=== PATIENT | female | born 1950 | race Two or more races ===

== ENCOUNTER 2018-02-26 09:40 | Emergency (ER) | payer MEDICARE ==
[2018-02-26 09:57] VITALS: RESP 18
[2018-02-26] MEDS ORDERED: SODIUM CHLORIDE 0.9% 1,000 ML IV STA (10:50)
[2018-02-26] MEDS ORDERED: ONDANSETRON 4 MG/2 ML VIAL IVP STA (10:50)
[2018-02-26] MEDS ORDERED: MORPHINE SULFATE 4 MG/ML SYRINGE IV STA (10:50)
--- NOTE | 2018-02-26 11:19 | ED ---
General Adult HPI - General Chief complaint: Back Pain/Injury Stated complaint: POSS KIDNEY PROBLEM Time Seen by Provider: 02/26/18 10:24 Source: patient, RN notes reviewed Mode of arrival: ambulatory Limitations: no limitations - History of Present Illness Initial comments: Patient 67-year-old female presenting to the emergency room today with a chief complaint of right-sided back pain. Patient states that she's had pain similar to this in the past over the last several months. States was coming and going. States it got worse over the last 5 days and last night has now become a constant pain on the right mid back. Patient states the location and pain is similar but it is no longer coming going. Patient does admit that she had a recent x-ray obtained through the family physician outpatient basis which shows some degenerative changes in the lower spine. Patient also admits that beginning the middle night she had a few episodes of nausea, vomiting, diarrhea. Denies any signs of blood. Patient states that she cannot seem to find a comfortable position. Patient states that she's had muscle relaxer at home with no relief. Patient states she was unable to take her morning medications because of nausea. She denies any other complaints. Patient denies any recent fever, chills, shortness of breath, chest pain, abdominal pain, dysuria or hematuria, constipation, headaches or visual changes, or any other complaints. - Related Data Home Medications Medication Instructions Recorded Confirmed Allopurinol [Zyloprim] 100 mg PO DAILY 02/26/18 02/26/18 Atenolol [Tenormin] 50 mg PO DAILY 02/26/18 02/26/18 Atorvastatin [Lipitor] 80 mg PO DAILY 02/26/18 02/26/18 Cholecalciferol [Vitamin D3] 5,000 unit PO DAILY 02/26/18 02/26/18 Folic Acid 1 mg PO DAILY 02/26/18 02/26/18 Losartan/Hydrochlorothiazide 1 tab PO DAILY 02/26/18 02/26/18 [Losartan-Hctz 100-12.5 mg Tab] [place]-3 Fatty Acids/Fish Oil [Fish 1 cap PO DAILY 02/26/18 02/26/18 Oil 1,000 mg Softgel] Omeprazole 40 mg PO DAILY 02/26/18 02/26/18 cloNIDine HCL [Catapres] 0.1 mg PO TID 02/26/18 02/26/18 metFORMIN HCL 500 mg PO BID 02/26/18 02/26/18 Previous Rx's Medication Instructions Recorded Cyclobenzaprine [Flexeril] 10 mg PO TID #20 tab 02/26/18 Ondansetron Odt [Zofran ODT] 4 mg PO Q8HR PRN #20 tab 02/26/18 Allergies Allergy/AdvReac Type Severity Reaction Status Date / Time clindamycin [From Cleocin] Allergy Rash/Hives Verified 02/26/18 10:58 Penicillins Allergy Rash/Hives Verified 02/26/18 10:58 Review of Systems ROS Statement: Those systems with pertinent positive or pertinent negative responses have been documented in the HPI. ROS Other: All systems not noted in ROS Statement are negative. Past Medical History Past Medical History: Diabetes Mellitus, Hyperlipidemia, Hypertension History of Any Multi-Drug Resistant Organisms: None Reported Past Surgical History: Appendectomy, Orthopedic Surgery, Tonsillectomy Additional Past Surgical History / Comment(s): right pointer finger surgery Past Psychological History: Anxiety Smoking Status: Never smoker Past Alcohol Use History: None Reported Past Drug Use History: None Reported General Exam - General Exam Comments Initial Comments: General: The patient is awake and alert, in no distress, and does not appear acutely ill. Eye: There is normal conjunctiva bilaterally. No signs of icterus. Ears, nose, mouth and throat: There are moist mucous membranes and no oral lesions. Neck: The neck is supple, there is no tenderness or JVD. Cardiovascular: There is a regular rate and rhythm. No murmur, rub or gallop is appreciated. Respiratory: Lungs are clear to auscultation, respirations are non-labored, breath sounds are equal. No wheezes, stridor, rales, or rhonchi. Gastrointestinal: Abdominal soft on palpation. Nontender. No pulsatile mass. No rebound, guarding Musculoskeletal: Normal ROM. Tender to palpation. Acutely on the right side midthoracic back. Strength 5/5. Sensation intact. Pulses equal bilaterally 2+. Neurological: A&O x 3. CN II-XII intact, There are no obvious motor or sensory deficits. Coordination appears grossly intact. Speech is normal. Skin: Skin is warm and dry and no rashes or lesions are noted. Psychiatric: Cooperative, appropriate mood & affect, normal judgment. Limitations: no limitations Course Vital Signs 02/26/18 02/26/18 09:52 12:38 Temperature 97.7 F Pulse Rate 80 Respiratory 18 Rate Blood Pressure 210/88 185/90 O2 Sat by Pulse 95 Oximetry EKG Findings - EKG Comments: EKG Findings:: EKG performed at 1317: A 12-lead EKG was performed and interpreted by me as showing the following: Rate is 76, and rhythm is normal sinus. There are normal QRS complexes and normal R-wave progression. ST segments have no elevation or depression, and MI segments appear normal. Medical Decision Making - Medical Decision Making Patient's labs been reviewed does show 15,000 white count. Patient did have episodes of nausea vomiting diarrhea this morning. This felt to be reactive. Patient's CT of the chest negative. CT the abdomen and pelvis does show evidence for a gastroenteritis versus colitis. Patient's urinalysis shows no sign of infection. Patient denies any symptoms of UTI. Patient's pain improved here in the emergency room after pain medication. Patient's has been seen the family doctor for the same type pain but it was worse last few days. Patient will be treated with muscle relaxer continue on anti-inflammatories for the back pain will also be given nausea medicine for her symptoms of nausea vomiting. She is advised follow-up over the next 2 days returning if symptoms increase worsen. - Lab Data Result diagrams: 02/26/18 11:35 02/26/18 11:35 Lab Results 02/26/18 02/26/18 02/26/18 Range/Units 11:35 11:35 11:35 WBC 15.0 H (3.8-10.6) k/uL RBC 4.28 (3.80-5.40) m/uL Hgb 13.8 (11.4-16.0) gm/dL Hct 41.5 (34.0-46.0) % MCV 96.8 (80.0-100.0) fL MCH 32.3 (25.0-35.0) pg MCHC 33.4 (31.0-37.0) g/dL RDW 13.7 (11.5-15.5) % Plt Count 180 (150-450) k/uL Neutrophils % 79 % Lymphocytes % 13 % Monocytes % 5 % Eosinophils % 1 % Basophils % 0 % Neutrophils # 11.8 H (1.3-7.7) k/uL Lymphocytes # 2.0 (1.0-4.8) k/uL Monocytes # 0.8 (0-1.0) k/uL Eosinophils # 0.1 (0-0.7) k/uL Basophils # 0.1 (0-0.2) k/uL PT (9.0-12.0) sec INR (<1.2) APTT (22.0-30.0) sec Sodium 144 (137-145) mmol/L Potassium 3.2 L (3.5-5.1) mmol/L Chloride 103 (98-107) mmol/L Carbon Dioxide 28 (22-30) mmol/L Anion Gap 13 mmol/L BUN 16 (7-17) mg/dL Creatinine 0.72 (0.52-1.04) mg/dL Est GFR (CKD-EPI)AfAm >90 (>60 ml/min/1.73 sqM) Est GFR (CKD-EPI)NonAf 88 (>60 ml/min/1.73 sqM) Glucose 116 H (74-99) mg/dL Calcium 9.8 (8.4-10.2) mg/dL Total Bilirubin 1.0 (0.2-1.3) mg/dL AST 26 (14-36) U/L ALT 29 (9-52) U/L Alkaline Phosphatase 91 (38-126) U/L Total Creatine Kinase 80 (30-135) U/L CK-MB (CK-2) 1.4 (0.0-2.4) ng/mL CK-MB (CK-2) Rel Index 1.8 Troponin I <0.012 (0.000-0.034) ng/mL Total Protein 7.3 (6.3-8.2) g/dL Albumin 4.4 (3.5-5.0) g/dL Amylase 90 (30-110) U/L Lipase 92 (23-300) U/L Urine Color Urine Appearance (Clear) Urine pH (5.0-8.0) Ur Specific [place] (1.001-1.035) Urine Protein (Negative) Urine Glucose (UA) (Negative) Urine Ketones (Negative) Urine Blood (Negative) Urine Nitrite (Negative) Urine Bilirubin (Negative) Urine Urobilinogen (<2.0) mg/dL Ur Leukocyte Esterase (Negative) 02/26/18 02/26/18 Range/Units 11:35 11:35 WBC (3.8-10.6) k/uL RBC (3.80-5.40) m/uL Hgb (11.4-16.0) gm/dL Hct (34.0-46.0) % MCV (80.0-100.0) fL MCH (25.0-35.0) pg MCHC (31.0-37.0) g/dL RDW (11.5-15.5) % Plt Count (150-450) k/uL Neutrophils % % Lymphocytes % % Monocytes % % Eosinophils % % Basophils % % Neutrophils # (1.3-7.7) k/uL Lymphocytes # (1.0-4.8) k/uL Monocytes # (0-1.0) k/uL Eosinophils # (0-0.7) k/uL Basophils # (0-0.2) k/uL PT 10.4 (9.0-12.0) sec INR 1.0 (<1.2) APTT 23.4 (22.0-30.0) sec Sodium (137-145) mmol/L Potassium (3.5-5.1) mmol/L Chloride (98-107) mmol/L Carbon Dioxide (22-30) mmol/L Anion Gap mmol/L BUN (7-17) mg/dL Creatinine (0.52-1.04) mg/dL Est GFR (CKD-EPI)AfAm (>60 ml/min/1.73 sqM) Est GFR (CKD-EPI)NonAf (>60 ml/min/1.73 sqM) Glucose (74-99) mg/dL Calcium (8.4-10.2) mg/dL Total Bilirubin (0.2-1.3) mg/dL AST (14-36) U/L ALT (9-52) U/L Alkaline Phosphatase (38-126) U/L Total Creatine Kinase (30-135) U/L CK-MB (CK-2) (0.0-2.4) ng/mL CK-MB (CK-2) Rel Index Troponin I (0.000-0.034) ng/mL Total Protein (6.3-8.2) g/dL Albumin (3.5-5.0) g/dL Amylase (30-110) U/L Lipase (23-300) U/L Urine Color Yellow Urine Appearance Clear (Clear) Urine pH 8.5 H (5.0-8.0) Ur Specific [place] 1.017 (1.001-1.035) Urine Protein Trace H (Negative) Urine Glucose (UA) Negative (Negative) Urine Ketones Negative (Negative) Urine Blood Negative (Negative) Urine Nitrite Negative (Negative) Urine Bilirubin Negative (Negative) Urine Urobilinogen <2.0 (<2.0) mg/dL Ur Leukocyte Esterase Negative (Negative) Disposition Clinical Impression: Nausea vomiting and diarrhea, Back pain Disposition: HOME SELF-CARE Condition: Good Instructions: Acute Nausea and Vomiting (ED) Additional Instructions: Please use medication as discussed. Please follow-up with family doctor in the next 2 days of symptoms have not improved. Please return to emergency room if the symptoms increase or worsen or for any other concerns. Prescriptions: Cyclobenzaprine [Flexeril] 10 mg PO TID #20 tab Ondansetron Odt [Zofran ODT] 4 mg PO Q8HR PRN #20 tab PRN Reason: Nausea Is patient prescribed a controlled substance at d/c from ED?: No Referrals: Amador Real MD [Primary Care Provider] - 1-2 days Time of Disposition: 13:37
[2018-02-26 12:03] LABS: Appearance,Urine Clear (Clear); Basophils # (A) 0.1 k/uL (0-0.2); Basophils % (A) 0 %; Bilirubin,Urine Negative (Negative); Blood,Urine Negative (Negative); Color,Urine Yellow; Eosinophils # (A) 0.1 k/uL (0-0.7); Eosinophils % (A) 1 %; Glucose,Urine (UA) Negative (Negative); HCT 41.5 % (34.0-46.0); HGB 13.8 gm/dL (11.4-16.0); Ketones,Urine Negative (Negative); Leukocyte Esterase,Urine Negative (Negative); Lymphocytes % (A) 13 %; MCH 32.3 pg (25.0-35.0); MCHC 33.4 g/dL (31.0-37.0); MCV 96.8 fL (80.0-100.0); Mean Platelet Volume 8.6; Monocytes # (A) 0.8 k/uL (0-1.0); Monocytes % (A) 5 %; Neutrophils # (A) 11.8 k/uL (1.3-7.7); Neutrophils % (A) 79 %; Nitrite,Urine Negative (Negative); PH, Urine 8.5 (5.0-8.0); Platelet Count 180 k/uL (150-450); Protein,Urine Trace (Negative); RBC 4.28 m/uL (3.80-5.40); RDW 13.7 % (11.5-15.5); Specific Gravity,Urine 1.017 (1.001-1.035); Urobilinogen,Urine <2.0 mg/dL (<2.0)
[2018-02-26 12:12] LABS: Partial Thromboplastin Time 23.4 sec (22.0-30.0); Prothrombin Time 10.4 sec (9.0-12.0)
[2018-02-26 12:14] LABS: ALT 29 U/L (9-52); AST 26 U/L (14-36); Albumin 4.4 g/dL (3.5-5.0); Alkaline Phosphatase 91 U/L (38-126); Amylase 90 U/L (30-110); Anion Gap 13 mmol/L; Blood Urea Nitrogen 16 mg/dL (7-17); Calcium 9.8 mg/dL (8.4-10.2); Carbon Dioxide 28 mmol/L (22-30); Chloride 103 mmol/L (98-107); Glucose 116 mg/dL (74-99); Lipase 92 U/L (23-300); Potassium 3.2 mmol/L (3.5-5.1); Sodium 144 mmol/L (137-145); Total Protein 7.3 g/dL (6.3-8.2)
[2018-02-26 12:26] LABS: Creatine Kinase 80 U/L (30-135)
[2018-02-26 12:39] LABS: Creatine Kinase MB 1.4 ng/mL (0.0-2.4); Troponin I <0.012 ng/mL (0.000-0.034)
--- NOTE | 2018-02-26 12:55 | CT ---
EXAMINATION TYPE: CT angio chest DATE OF EXAM: 02/26/2018 COMPARISON: HISTORY: right sided back pain with nuasea and diarrhea CT DLP: 227.3 mGycm CONTRAST: CT chest with contrast and 3D reconstruction with MIP imaging is performed with IV Contrast, patient injected with 100 mL of Isovue 370. Contrast-enhanced CT of the chest was performed through the course of the pulmonary arteries with geovani g and mediastinal window settings submitted. 3D reconstruction with MIP imaging was also performed. PULMONARY ARTERIES: The pulmonary arteries and their major tributaries are patent. I do not see ki dence for sizable filling defect to suggest pulmonary embolic process. LUNGS: The lungs are clear and free of infiltrate. No evidence for atelectasis. No pulmonary nodule or mass is detected. No pleural effusion. MEDIASTINUM: Small moderate fixed hiatal hernia. Thoracic aorta is of normal caliber,however, evaluat ion is limited given timing of the contrast bolus. If there is concern for thoracic aortic pathology consider JAROCHO. Correlate clinically . The heart is not enlarged. No evidence for mediastinal mass. No mediastinal lymph nodes greater than 1cm. HILAR STRUCTURES: No evidence for mass. No hilar lymph nodes greater than 1 cm. UPPER ABDOMEN: No significant abnormality is seen. IMPRESSION: 1. No evidence for Pulmonary embolism at this time.
--- NOTE | 2018-02-26 13:06 | CT ---
EXAMINATION TYPE: CT abdomen pelvis w con DATE OF EXAM: 02/26/2018 COMPARISON: None HISTORY: right sided back pain with nausea and diarrhea CT DLP: 383.1 mGycm Automated exposure control for dose reduction was used. TECHNIQUE: Helical acquisition of images from the lung bases through the pelvis have been completed. CONTRAST: Performed without Oral Contrast and with IV Contrast, patient injected with 100 mL of Isovue 370. FINDINGS: There is an hiatal hernia with partial intrathoracic stomach. Gastric wall thickening is in determinate and may be due to lack of distention. Some nonspecific calcifications are present within the abdomen could represent calcified mesenteric nodes. Small umbilical hernia contains fat. LUNG BASES: No significant abnormality is appreciated. AORTA: No significant abnormality is appreciated. LIVER/GB: No significant abnormality is appreciated. Small focal hypodensity within the left lobe gilberto sures 7 to 8 mm and is indeterminate PANCREAS: No significant abnormality is seen. SPLEEN: Small calcification at the inferior margin of the spleen is of questionable significance ADRENALS: No significant abnormality is seen. KIDNEYS: Minute hypodensities scattered within the kidneys may represent cysts REPRODUCTIVE ORGANS: Bulky uterus with some hyperdensity suggests underlying fibroid change. BOWEL: There is some areas of colonic wall thickening, questionable small bowel wall thickening in t he left upper quadrant. No evident obstruction. FREE AIR: No Free Air visible. ASCITES: None visible. PELVIC ADENOPATHY: None visualized. RETROPERITONEAL ADENOPATHY: No Retroperitoneal Adenopathy visible. URINARY BLADDER: The urinary bladder wall is thickened, there may be a lack of distention, correlate to exclude cystitis. OSSEOUS STRUCTURES: No significant abnormality is seen. IMPRESSION: CORRELATE FOR GASTROENTERITIS, COLITIS, URINARY TRACT INFECTION. ADDITIONAL FINDINGS ABOVE, FOLLOW-UP INDICATED.
[2018-02-26 13:56] VITALS: BP 166/92; PULSE 77; TEMP 98.5
== END 2018-02-26 13:56 | disposition home or self-care (01) ==
LOC: EC 09:40
DX: M54.9 Dorsalgia, unspecified (principal); R11.2 Nausea with vomiting, unspecified; R19.7 Diarrhea, unspecified; E11.9 Type 2 diabetes mellitus without complications; E78.5 Hyperlipidemia, unspecified; I10 Essential (primary) hypertension; Z79.84 Long term (current) use of oral hypoglycemic drugs; Z79.899 Other long term (current) drug therapy; Z88.0 Allergy status to penicillin; Z88.1 Allergy status to other antibiotic agents
CPT/HCPCS: 36415; 93005; 80053; 82150; 82550; 82553; 83690; 84484; 85025; 85610; 85730; 81003; 71275; 74177; 99284; 96374; 96375; 96361; J2270; J2405; Q9967

== ENCOUNTER → 2020-08-09 | Outpatient (CLI) | payer MEDICARE ==
--- NOTE | 2020-08-09 12:04 | BD ---
EXAMINATION TYPE: Axial Bone Density DATE OF EXAM: 08/09/2020 COMPARISON: NONE CLINICAL HISTORY: Osteoporosis per order. Postmenopausal female. Height: 64.4 IN Weight: 141 LBS FRAX RISK QUESTIONS: Family History (Parent hip fracture): YES MOTHER Secondary Osteoporosis: 3. Menopause before 45: AGE 50 RISK FACTORS HISTORY OF: Active: YES Postmenopausal woman: AGE 50 Take estrogen and/or progesterone medications: NOT NOW How long: TOOK CONTROL FOR APPROX 6 YEARS MEDICATIONS: Additional Medications: FOLIC ACID, ATENOLOL, OMEPRAZOLE, ATORVASTATIN, LOW DOSE ASPIRIN,CLONIDINE, L OSARTAN, ALLOPURINOL, METFORMIN, NORVASC EXAM MEASUREMENTS: Bone mineral densitometry was performed using the [employer] System. Bone mineral density as measured about the Lumbar spine is: ----- L1-L4(G/cm2): 1.055 T Score Values are as follows: ----- L2: -1.6 ----- L3: 0.1 ----- L4: -1.3 ----- L1-L4: -1.0 Bone mineral density BASELINE Bone mineral density about the R hip (g/cm2): 0.813 Bone mineral density about the L hip (g/cm2): 0.822 T Score values are as follows: -----R Neck: -1.6 -----L Neck: -1.6 -----R Total: -0.5 -----L Total: -0.9 Bone mineral density BASELINE IMPRESSION: Osteopenia (T Score between -2.5 and -1). There is slightly increased risk of fracture and the patient may be considered for treatment. Re-Screen 2-5 years. NOTE: T-SCORE=SD OF THE YOUNG ADULT MEAN.
--- NOTE | 2020-08-09 15:06 | MM ---
Reason for exam: screening (asymptomatic). Last mammogram was performed 5 years and 1 month ago. History: Patient is postmenopausal. Physical Findings: A clinical breast exam by your physician is recommended on an annual basis and results should be correlated with mammographic findings. MG 3D Screening Mammo W/Cad Bilateral CC and MLO view(s) were taken. Prior study comparison: July 13, 2015, mammogram, performed at [facility]. May 04, 2014, mammogram, performed at [facility]. The breast tissue is heterogeneously dense. This may lower the sensitivity of mammography. There are benign appearing round calcifications bilaterally. There is no discrete abnormality. ASSESSMENT: Benign, BI-RAD 2 RECOMMENDATION: Routine screening mammogram of both breasts in 1 year.
--- NOTE | 2020-08-16 09:07 | P.ARTDOP ---
Arterial Doppler LOWER EXTREMITY ARTERIAL DOPPLER: DATE OF SERVICE: 08/09/2020 Reason for study: Paresthesias both feet. Doppler waveforms: Multiphasic bilaterally throughout. Pulse volume recording: []. Pressure gradients: None. Ankle-brachial indices: 0.96 on the right and 0.97 on the left. Toe brachial indices: 0.69 on the right, 0.81 on the left Impression: Normal study.
== END | disposition home or self-care (01) ==
LOC: RADUSWWP 09:42
PROVIDERS: ATTEND Internal Medicine
DX: Z12.31 Encounter for screening mammogram for malignant neoplasm of breast (principal); Z13.820 Encounter for screening for osteoporosis; I73.9 Peripheral vascular disease, unspecified; M85.89 Other specified disorders of bone density and structure, multiple sites; M81.0 Age-related osteoporosis without current pathological fracture; Z78.0 Asymptomatic menopausal state
CPT/HCPCS: 77063; 77067; 77080; 93922

== ENCOUNTER → 2021-10-02 | Outpatient (CLI) | payer MEDICARE ==
--- NOTE | 2021-10-02 12:21 | CA ---
Exercise Stress Test Report Name: Katherin Shahid Exam Date: 10/02/2021 10:33 Exam Location: [place] Ht (in): 65 Wt (lb): 136 BSA: 1.68 Ordering Phys: Amador Real MD Referring Phys: FATMATA, Technologist: Adelfo Grande Age: 71 Gender: F : 1950 Procedure CPT: Indications: I25.10 ICD-10 Codes: Patient History: ASCAD Medications: Folic acid, atenolol, omeperazole, atorvastatin, aspirin, colnidine, losartan, allopurinal, metformin, norvasc neurotin, setia. Meds past 24 hrs: Pretest Chest Pain: STRESS TEST Cong Protocol Exercise Duration (min:sec): 05:[address] Depressions (mm): Angina Score: Henry Score: Resting HR (bpm): 65 Peak HR (bpm): 138 Resting BP (mmHg): 151 / 92 Peak BP (mmHg): 190 / 141 MPHR: 149 Target HR: 127 % MPHR: 93 METS: 7.0 Total Dose: Peak Dose: Atropine: Double Product: 44837 BP Response: Stress Termination: Fitgue and heart rate acheived. Stress Symptoms: Patient became shacky and fitgued at peak exercise but recovered quickly. Stress Summary: ECG ANALYSIS Resting ECG: Stress ECG: CONCLUSIONS Exercise stress test Baseline heart rate 65 beats a minute, Baseline blood pressure 151/92 mmHg Patient exercised on a Cong protocol for 5 minutes only, low workload level achieved Peak heart rate 140 beats a minute The blood pressure 190/87 mmHg No ECG ms for ischemia No arrhythmias Dr. Osorio Linn MD (Electronically Signed) Final Date: 02 October 2021 12:20
--- NOTE | 2021-10-02 16:39 | NM ---
EXAMINATION TYPE: NM stress cardiolite complete DATE OF EXAM: 10/02/2021 COMPARISON: NONE HISTORY: Atherosclerotic heart disease TECHNIQUE: After the intravenous administration of 9.8 mCi Tc 99m Sestamibi - Cardiolite resting SPE CT images acquired 45 minutes post injection. At peak stress 26.1 mCi Tc 99m Sestamibi - Stress images obtained 30 minutes post injection The patient was stressed with 0.4mg Lexiscan. FINDINGS: No fixed or reversible perfusion defects are evident. Gated wall motion is normal. The ejection fract ion of 65% is normal. Polar maps are normal. IMPRESSION: 1. No stress-induced ischemic changes
== END | disposition home or self-care (01) ==
LOC: RADNMMAIN 10-01 08:25
PROVIDERS: ATTEND Internal Medicine
DX: I25.10 Atherosclerotic heart disease of native coronary artery without angina pectoris (principal)
CPT/HCPCS: 93017; 78452; A9500

== ENCOUNTER 2023-12-02 14:40 | Inpatient (IN) | payer MEDICARE ==
--- NOTE | 2023-12-02 15:09 | ED ---
General Adult HPI - General Source: patient, RN notes reviewed Mode of arrival: wheelchair Limitations: no limitations <Rhoda Combs - Last Filed: 12/02/23 15:07> <Pineda Banks - Last Filed: 12/03/23 00:03> - General Chief complaint: Fever Stated complaint: high fever,chills,chest tightness Time Seen by Provider: 12/02/23 14:58 - History of Present Illness Initial comments: Quick [id number] female presents emergency department for chief complaint of chills, fevers, weakness that started at 2 AM. She feels mildly short of breath as well and has been experiencing a dry cough. Denies history of COPD or asthma. Patient states that she tested positive for COVID approximately 2 weeks ago and took an at home test today that was negative. (Rhoda Combs) 73-year-old female presenting with chief complaint of weakness. Patient has had chills and fevers as well as is a cough and some mild shortness of breath for a day or 2. At around 2 AM symptoms significantly worsened and she felt generally weak. She could not walk to the mailbox by herself which she normally has no issue doing. She states that "my breathing does not feel ready". No chest pain. She did test positive for COVID about 2 weeks ago, she did take an at home test today that was negative. No nausea vomiting diarrhea or abdominal pain. No chest pain. No lower extremity swelling. (Pineda Banks) - Related Data Home Medications Medication Instructions Recorded Confirmed Atorvastatin [Lipitor] 80 mg PO DIRECTED 02/26/18 12/02/23 Folic Acid 1 mg PO DAILY 02/26/18 12/02/23 Losartan/Hydrochlorothiazide 1 tab PO DIRECTED 02/26/18 12/02/23 [Losartan-Hctz 100-12.5 mg Tab] Omeprazole 40 mg PO DIRECTED 02/26/18 12/02/23 allopurinoL [Zyloprim] 100 mg PO DIRECTED 02/26/18 12/02/23 atenoloL [Tenormin] 50 mg PO DIRECTED 02/26/18 12/02/23 cloNIDine HCL [Catapres] 0.1 mg PO DIRECTED 02/26/18 12/02/23 metFORMIN HCL 500 mg PO DIRECTED 02/26/18 12/02/23 ALPRAZolam [Xanax] 0.25 mg PO DAILY PRN 11/04/23 12/02/23 Aspirin 81 mg PO DAILY 11/04/23 12/02/23 Empagliflozin [Jardiance] 10 mg PO DAILY 11/04/23 12/02/23 Ezetimibe [Zetia] 10 mg PO DIRECTED 11/04/23 12/02/23 Gabapentin 600 mg PO DIRECTED 11/04/23 12/02/23 amLODIPine [Norvasc] 5 mg PO DIRECTED 11/04/23 12/02/23 Famotidine [Pepcid] 20 mg PO HS PRN 12/02/23 12/02/23 Allergies Allergy/AdvReac Type Severity Reaction Status Date / Time Penicillins Allergy Unknown Rash/Hives Verified 12/02/23 14:46 clindamycin [From Cleocin] Allergy Rash/Hives Verified 12/02/23 14:46 Review of Systems ROS Other: All systems not noted in ROS Statement are negative. <Rhoda Combs - Last Filed: 12/02/23 15:07> ROS Other: All systems not noted in ROS Statement are negative. <Pineda Banks - Last Filed: 12/03/23 00:03> ROS Statement: Those systems with pertinent positive or pertinent negative responses have been documented in the HPI. Past Medical History Past Medical History: Diabetes Mellitus, GERD/Reflux, Hyperlipidemia, Hypertensi on Additional Past Medical History / Comment(s): Gastritis History of Any Multi-Drug Resistant Organisms: None Reported Past Surgical History: Appendectomy, Orthopedic Surgery, Tonsillectomy Additional Past Surgical History / Comment(s): right pointer finger surgery, pilonidal cyst removed at 20yrs old; hernia repair R groin- Dr. Peres Past Anesthesia/Blood Transfusion Reactions: Postoperative Nausea & Vomiting (PONV) Past Psychological History: No Psychological Hx Reported Smoking Status: Former smoker Past Alcohol Use History: Rare <Rhoda Combs - Last Filed: 12/02/23 15:07> General Exam Limitations: no limitations <Rhoda Combs - Last Filed: 12/02/23 15:07> Limitations: no limitations General appearance: alert, in no apparent distress Head exam: Present: atraumatic, normocephalic, normal inspection Eye exam: Present: normal appearance, EOMI Neck exam: Present: normal inspection. Absent: meningismus Respiratory exam: Present: normal lung sounds bilaterally. Absent: respiratory distress, wheezes, rales, rhonchi, stridor Cardiovascular Exam: Present: regular rate, normal rhythm, normal heart sounds. Absent: systolic murmur, diastolic murmur, rubs, gallop, clicks Neurological exam: Present: alert, oriented X3 Psychiatric exam: Present: normal affect, normal mood Skin exam: Present: warm, dry <Pineda Banks - Last Filed: 12/03/23 00:03> - General Exam Comments Initial Comments: Visual Physical Exam Vital signs reviewed General: Well-appearing, nontoxic, no acute distress. Head: Normocephalic, atraumatic Eyes: PERRLA, EOMI ENT: Airway patent Chest: Nonlabored breathing Skin: No visual rash, normal skin tone Neuro: Alert and oriented 3 Musculoskeletal: No gross abnormalities (Rhoda Combs) Course Vital Signs 12/02/23 12/02/23 12/02/23 14:41 18:17 18:18 Temperature 99.4 F Pulse Rate 83 77 Respiratory 18 20 Rate Blood Pressure 135/74 123/92 123/92 O2 Sat by Pulse 95 88 L Oximetry 12/02/23 12/02/23 12/02/23 20:00 21:00 22:30 Temperature Pulse Rate 80 Respiratory 16 18 Rate Blood Pressure 97/63 110/68 112/94 O2 Sat by Pulse 93 L 95 96 Oximetry Medical Decision Making <Rhoda Combs - Last Filed: 12/02/23 15:07> - Lab Data Result diagrams: 12/02/23 15:08 12/02/23 15:08 <Pineda Banks - Last Filed: 12/03/23 00:03> - Medical Decision Making I completed the quick note portion of this chart signed Rhoda Combs PA-C (Rhoda Combs) Was pt. sent in by a medical professional or institution (YINKA Collins, MASTER CONTROL SUPERVISOR, urgent care, hospital, or halfway...) When possible be specific @ -No Did you speak to anyone other than the patient for history (EMS, parent, family, police, friend...)? What history was obtained from this source @ -No Did you review nursing and triage notes (agree or disagree)? Why? @ -I reviewed and agree with nursing and triage notes Were old charts reviewed (outside hosp., previous admission, EMS record, old EKG, old radiological studies, urgent care reports/EKG's, halfway records)? Report findings @ -No old charts were reviewed Differential Diagnosis (chest pain, altered mental status, abdominal pain women, abdominal pain men, vaginal bleeding, weakness, fever, dyspnea, syncope, headache, dizziness, GI bleed, back pain, seizure, CVA, palpatations, mental health, musculoskeletal)? @ -MDM Differential Weakness: Hypoglycemia, shock, sepsis, hyponatremia, anemia, infection, TX, ETOH, adverse medicine reaction, overdose, stroke. ... This is not meant to be an all- inclusive list EKG interpreted by me (3pts min.). @ -EKG shows sinus rhythm ventricular rate 74. HI interval 142. QRS 84. QT 395. QTc 423. X-rays interpreted by me (1pt min.). @ -X-ray shows right lower lobe infiltrate. Correlate for pneumonia. CT interpreted by me (1pt min.). @ -None done U/S interpreted by me (1pt. min.). @ -None done What testing was considered but not performed or refused? (CT, X-rays, U/S, labs)? Why? @ -None What meds were considered but not given or refused? Why? @ -None Did you discuss the management of the patient with other professionals (professionals i.e. , PA, MASTER CONTROL SUPERVISOR, lab, RT, psych nurse, manager social services, product marketing engineer, te acher, hydrological technical officer, medical case worker)? Give summary @ -I spoke with Dr. Real who accepts admission Was smoking cessation discussed for >3mins.? @ -No Was critical care preformed (if so, how long)? @ -No Were there social determinants of health that impacted care today? How? (Homelessness, low income, unemployed, alcoholism, drug addiction, transportation, low edu. Level, literacy, decrease access to med. care, group home, rehab)? @ -No Was there de-escalation of care discussed even if they declined (Discuss DNR or withdrawal of care, Hospice)? DNR status @ -No What co-morbidities impacted this encounter? (DM, HTN, Smoking, COPD, CAD, Cancer, CVA, ARF, Chemo, Hep., AIDS, mental health diagnosis, sleep apnea, morbid obesity)? @ -None Was patient admitted / discharged? Hospital course, mention meds given and route, prescriptions, significant lab abnormalities, going to OR and other pertinent info. @ -73-year-old female presenting with chief complaint of weakness, shortness of breath fevers and chills. Workup was initiated by triage. Patient is hypoxic on room air, 88%. She is placed on oxygen via nasal cannula and O2 returns to normal limits. Chest x-ray is positive for pneumonia. Patient is positive for COVID. White count 12.7. She is started on Rocephin and azithromycin after blood cultures are drawn. Given Decadron 10 mg. She will be admitted with pulmonary consult. Patient is agreeable with this plan. I discussed this case with my attending Dr. Torre Undiagnosed new problem with uncertain prognosis? @ -No Drug Therapy requiring intensive monitoring for toxicity (Heparin, Nitro, Insulin, Cardizem)? @ -No Were any procedures done? @ -No Diagnosis/symptom? @ -Pneumonia Acute, or Chronic, or Acute on Chronic? @ -Acute Uncomplicated (without systemic symptoms) or Complicated (systemic symptoms)? @ -Complicated Side effects of treatment? @ -No Exacerbation, Progression, or Severe Exacerbation? @ -No Poses a threat to life or bodily function? How? (Chest pain, [place], TX, pneumonia, PE, COPD, DKA, ARF, appy, cholecystitis, CVA, Diverticulitis, Homicidal, Suicidal, threat to staff... and all critical care pts) @ -Yes (Pineda Banks) - Lab Data Lab Results 12/02/23 12/02/23 12/02/23 Range/Units 15:08 15:08 15:08 WBC 12.7 H (3.8-10.6) k/uL RBC 3.87 (3.80-5.40) m/uL Hgb 12.5 (11.4-16.0) gm/dL Hct 38.2 (34.0-46.0) % MCV 98.8 (80.0-100.0) fL MCH 32.2 (25.0-35.0) pg MCHC 32.6 (31.0-37.0) g/dL RDW 14.1 (11.5-15.5) % Plt Count 195 (150-450) k/uL MPV 8.8 Neutrophils % 83 % Lymphocytes % 12 % Monocytes % 4 % Eosinophils % 1 % Basophils % 0 % Neutrophils # 10.5 H (1.3-7.7) k/uL Lymphocytes # 1.5 (1.0-4.8) k/uL Monocytes # 0.4 (0-1.0) k/uL Eosinophils # 0.1 (0-0.7) k/uL Basophils # 0.0 (0-0.2) k/uL PT (10.0-12.5) sec INR (<1.2) APTT (22.0-30.0) sec Sodium 139 (137-145) mmol/L Potassium 3.5 (3.5-5.1) mmol/L Chloride 96 L (98-107) mmol/L Carbon Dioxide 34 H (22-30) mmol/L Anion Gap 9 mmol/L BUN 21 H (7-17) mg/dL Creatinine 0.80 (0.52-1.04) mg/dL Est GFR (CKD-EPI)AfAm 85 (>60 ml/min/1.73 sqM) Est GFR (CKD-EPI)NonAf 74 (>60 ml/min/1.73 sqM) Glucose 107 H (74-99) mg/dL Plasma Lactic Acid Mynor 2.0 (0.7-2.0) mmol/L Calcium 9.0 (8.4-10.2) mg/dL Magnesium 1.6 (1.6-2.3) mg/dL Total Bilirubin 1.7 H (0.2-1.3) mg/dL AST 22 (14-36) U/L ALT 13 (4-34) U/L Alkaline Phosphatase 91 (38-126) U/L Troponin I (0.000-0.034) ng/mL Total Protein 6.8 (6.3-8.2) g/dL Albumin 3.9 (3.5-5.0) g/dL Urine Color Urine Appearance (Clear) Urine pH (5.0-8.0) Ur Specific Fluker (1.001-1.035) Urine Protein (Negative) Urine Glucose (UA) (Negative) Urine Ketones (Negative) Urine Blood (Negative) Urine Nitrite (Negative) Urine Bilirubin (Negative) Urine Urobilinogen (<2.0) mg/dL Ur Leukocyte Esterase (Negative) Urine RBC (0-5) /hpf Urine WBC (0-5) /hpf Ur Squamous Epith Cells (0-4) /hpf Urine Bacteria (None) /hpf Urine Mucus (None) /hpf Influenza Type A (PCR) (Not Detectd) Influenza Type B (PCR) (Not Detectd) RSV (PCR) (Not Detectd) SARS-CoV-2 (PCR) (Not Detectd) 12/02/23 12/02/23 12/02/23 Range/Units 15:08 15:09 15:09 WBC (3.8-10.6) k/uL RBC (3.80-5.40) m/uL Hgb (11.4-16.0) gm/dL Hct (34.0-46.0) % MCV (80.0-100.0) fL MCH (25.0-35.0) pg MCHC (31.0-37.0) g/dL RDW (11.5-15.5) % Plt Count (150-450) k/uL MPV Neutrophils % % Lymphocytes % % Monocytes % % Eosinophils % % Basophils % % Neutrophils # (1.3-7.7) k/uL Lymphocytes # (1.0-4.8) k/uL Monocytes # (0-1.0) k/uL Eosinophils # (0-0.7) k/uL Basophils # (0-0.2) k/uL PT 10.5 (10.0-12.5) sec INR 0.9 (<1.2) APTT 26.1 (22.0-30.0) sec Sodium (137-145) mmol/L Potassium (3.5-5.1) mmol/L Chloride (98-107) mmol/L Carbon Dioxide (22-30) mmol/L Anion Gap mmol/L BUN (7-17) mg/dL Creatinine (0.52-1.04) mg/dL Est GFR (CKD-EPI)AfAm (>60 ml/min/1.73 sqM) Est GFR (CKD-EPI)NonAf (>60 ml/min/1.73 sqM) Glucose (74-99) mg/dL Plasma Lactic Acid Mynor (0.7-2.0) mmol/L Calcium (8.4-10.2) mg/dL Magnesium (1.6-2.3) mg/dL Total Bilirubin (0.2-1.3) mg/dL AST (14-36) U/L ALT (4-34) U/L Alkaline Phosphatase (38-126) U/L Troponin I <0.012 (0.000-0.034) ng/mL Total Protein (6.3-8.2) g/dL Albumin (3.5-5.0) g/dL Urine Color Urine Appearance (Clear) Urine pH (5.0-8.0) Ur Specific Fluker (1.001-1.035) Urine Protein (Negative) Urine Glucose (UA) (Negative) Urine Ketones (Negative) Urine Blood (Negative) Urine Nitrite (Negative) Urine Bilirubin (Negative) Urine Urobilinogen (<2.0) mg/dL Ur Leukocyte Esterase (Negative) Urine RBC (0-5) /hpf Urine WBC (0-5) /hpf Ur Squamous Epith Cells (0-4) /hpf Urine Bacteria (None) /hpf Urine Mucus (None) /hpf Influenza Type A (PCR) Not Detected (Not Detectd) Influenza Type B (PCR) Not Detected (Not Detectd) RSV (PCR) Not Detected (Not Detectd) SARS-CoV-2 (PCR) Detected A (Not Detectd) 12/02/23 Range/Units 19:04 WBC (3.8-10.6) k/uL RBC (3.80-5.40) m/uL Hgb (11.4-16.0) gm/dL Hct (34.0-46.0) % MCV (80.0-100.0) fL MCH (25.0-35.0) pg MCHC (31.0-37.0) g/dL RDW (11.5-15.5) % Plt Count (150-450) k/uL MPV Neutrophils % % Lymphocytes % % Monocytes % % Eosinophils % % Basophils % % Neutrophils # (1.3-7.7) k/uL Lymphocytes # (1.0-4.8) k/uL Monocytes # (0-1.0) k/uL Eosinophils # (0-0.7) k/uL Basophils # (0-0.2) k/uL PT (10.0-12.5) sec INR (<1.2) APTT (22.0-30.0) sec Sodium (137-145) mmol/L Potassium (3.5-5.1) mmol/L Chloride (98-107) mmol/L Carbon Dioxide (22-30) mmol/L Anion Gap mmol/L BUN (7-17) mg/dL Creatinine (0.52-1.04) mg/dL Est GFR (CKD-EPI)AfAm (>60 ml/min/1.73 sqM) Est GFR (CKD-EPI)NonAf (>60 ml/min/1.73 sqM) Glucose (74-99) mg/dL Plasma Lactic Acid Mynor (0.7-2.0) mmol/L Calcium (8.4-10.2) mg/dL Magnesium (1.6-2.3) mg/dL Total Bilirubin (0.2-1.3) mg/dL AST (14-36) U/L ALT (4-34) U/L Alkaline Phosphatase (38-126) U/L Troponin I (0.000-0.034) ng/mL Total Protein (6.3-8.2) g/dL Albumin (3.5-5.0) g/dL Urine Color Yellow Urine Appearance Cloudy H (Clear) Urine pH 6.0 (5.0-8.0) Ur Specific Fluker 1.025 (1.001-1.035) Urine Protein 1+ H (Negative) Urine Glucose (UA) 4+ H (Negative) Urine Ketones 1+ H (Negative) Urine Blood Negative (Negative) Urine Nitrite Negative (Negative) Urine Bilirubin Negative (Negative) Urine Urobilinogen 2.0 (<2.0) mg/dL Ur Leukocyte Esterase Trace H (Negative) Urine RBC 1 (0-5) /hpf Urine WBC 8 H (0-5) /hpf Ur Squamous Epith Cells 17 H (0-4) /hpf Urine Bacteria Occasional H (None) /hpf Urine Mucus Rare H (None) /hpf Influenza Type A (PCR) (Not Detectd) Influenza Type B (PCR) (Not Detectd) RSV (PCR) (Not Detectd) SARS-CoV-2 (PCR) (Not Detectd) Disposition <Stieler,Rhoda - Last Filed: 12/02/23 15:07> Time of Disposition: 19:26 <Pineda Banks - Last Filed: 12/03/23 00:03> Clinical Impression: Pneumonia, COVID-19 Disposition: ADMITTED IP TO THIS HOSP Condition: Serious
--- NOTE | 2023-12-02 16:41 | XR ---
EXAMINATION TYPE: XR chest 2V DATE OF EXAM: 12/02/2023 COMPARISON: None INDICATION: Fever, cough TECHNIQUE: Frontal and lateral views of the chest are obtained. FINDINGS: The heart size is normal. The pulmonary vasculature is normal. Right lower lobe infiltrate is present. Correlate for pneumonia. Follow-up recommended. IMPRESSION: 1. Right lower lobe infiltrate. Correlate for pneumonia [facility], Workstation: [facility], 12/02/2023 4:39 PM
[2023-12-02 18:29] LABS: Basophils % (A) 0 %; Eosinophils # (A) 0.1 k/uL (0-0.7); Eosinophils % (A) 1 %; HCT 38.2 % (34.0-46.0); HGB 12.5 gm/dL (11.4-16.0); Lymphocytes # (A) 1.5 k/uL (1.0-4.8); Lymphocytes % (A) 12 %; MCH 32.2 pg (25.0-35.0); MCHC 32.6 g/dL (31.0-37.0); MCV 98.8 fL (80.0-100.0); Mean Platelet Volume 8.8; Monocytes # (A) 0.4 k/uL (0-1.0); Monocytes % (A) 4 %; Neutrophils # (A) 10.5 k/uL (1.3-7.7); Neutrophils % (A) 83 %; Platelet Count 195 k/uL (150-450); RBC 3.87 m/uL (3.80-5.40); RDW 14.1 % (11.5-15.5); WBC 12.7 k/uL (3.8-10.6)
[2023-12-02 18:41] LABS: INR 0.9 (<1.2); Partial Thromboplastin Time 26.1 sec (22.0-30.0); Prothrombin Time 10.5 sec (10.0-12.5)
[2023-12-02 18:49] LABS: ALT 13 U/L (4-34); AST 22 U/L (14-36); African American GFR (CKD) 85 (>60 ml/min/1.73 sqM); Albumin 3.9 g/dL (3.5-5.0); Alkaline Phosphatase 91 U/L (38-126); Anion Gap 9 mmol/L; Blood Urea Nitrogen 21 mg/dL (7-17); Carbon Dioxide 34 mmol/L (22-30); Chloride 96 mmol/L (98-107); Glucose 107 mg/dL (74-99); Magnesium 1.6 mg/dL (1.6-2.3); Non-African American GFR(CKD) 74 (>60 ml/min/1.73 sqM); Potassium 3.5 mmol/L (3.5-5.1); Sodium 139 mmol/L (137-145); Total Bilirubin 1.7 mg/dL (0.2-1.3); Total Protein 6.8 g/dL (6.3-8.2)
[2023-12-02] MEDS: AZITHROMYCIN 500 MG in SODIUM CHLORIDE 0.9% 250 ML IVPB STA (18:53)
[2023-12-02] MEDS: SODIUM CHLORIDE 0.9% 500 ML 500 ML IV STA (18:54)
[2023-12-02 19:21] LABS: Appearance,Urine Cloudy (Clear); Bacteria,Urine Occasional /hpf; Bilirubin,Urine Negative (Negative); Blood,Urine Negative (Negative); Color,Urine Yellow; Glucose,Urine (UA) 4+ (Negative); Ketones,Urine 1+ (Negative); Leukocyte Esterase,Urine Trace (Negative); Mucus,Urine Rare /hpf; Nitrite,Urine Negative (Negative); Protein,Urine 1+ (Negative); RBC,Urine 1 /hpf (0-5); Specific Gravity,Urine 1.025 (1.001-1.035); Squamous Epithelial Cell,Urine 17 /hpf (0-4); WBC,Urine 8 /hpf (0-5)
[2023-12-02] MEDS ORDERED: NALOXONE 0.4 MG/ML 1 ML VIAL IV PRN (19:21)
[2023-12-02] MEDS ORDERED: ACETAMINOPHEN TAB 325 MG TAB PO PRN (19:21)
[2023-12-02] MEDS ORDERED: IBUPROFEN 400 MG TAB PO PRN (19:21)
[2023-12-02] MEDS: DEXAMETHASONE SOD PHOSPHATE 10 MG/ML 1 ML VIAL IVP STA (21:08)
[2023-12-02] MEDS: SODIUM CHLORIDE 0.9% 1,000 ML IV ONE (21:09)
[2023-12-02] MEDS: SODIUM CHLORIDE 0.9% 1,000 ML IV SCH (21:09)
[2023-12-02] MEDS ORDERED: FAMOTIDINE 20 MG TAB PO PRN (23:37)
[2023-12-02] MEDS: LOSARTAN-HCTZ 50-12.5 MG 1 EACH TAB PO SCH (23:49)
[2023-12-02] MEDS: GABAPENTIN 300 MG CAP PO SCH (23:51)
--- NOTE | 2023-12-03 01:41 | P.CNPUL ---
History of Present Illness Consult date: 12/03/23 Requesting physician: Rhoda Combs Reason for consult: other (COVID-pneumonia) Chief complaint: Shortness of breath, coughing, fevers History of present illness: Patient is a 73-year-old female with past medical history significant for diabetes mellitus, hypertension, hyperlipidemia, GERD, gastritis, anxiety. Patient states that approximately 2 weeks ago she was having headache, intermittent fevers, chills, runny nose, postnasal drip, non-productive cough. She tested herself for COVID at home, and had a positive home test. Did not pursue any outpatient treatment. Reportedly, previously vaccinated for COVID, but has not had any booster injections. This is her first known COVID infe ction. Denies any pre-existing lung disease. Her primary care provider is Dr. Real. She initially had improvement in her URI symptoms, and then starting on Friday developed worsening shortness of breath, mostly nonproductive cough, intermittent fevers. She has some right-sided chest discomfort with coughing. She was severely weak, could not walk to the mailbox. Her went and bought a pulse oximeter, states that it was reading low, 88 to 90%. She called her primary care provider, who directed her to the emergency department. She is currently being evaluated in the emergency department, room 14. She is on 2 L/min nasal cannula. SpO2 is 96%. She has no acute respiratory distress. Chest x-ray demonstrated right lung opacity obscuring the right hemidiaphragm and right midlung. CBC 12.7, hemoglobin 12.5, hematocrit 38.2, platelets 195. CMP: Sodium 139, potassium 3.5, chloride 96, serum bicarb 34, BUN 21, creatinine 0.8, glucose 107. Lactic 2. LFTs unremarkable. Troponin less than 0.012. Normal saline is infusing at 130 mL/h. Patient did again test positive for COVID-19 via PCR. Patient was placed on empiric antibiotics in the form of azithromycin and Rocephin in the emergency department. She does have reported allergies to penicillins and clindamycin, but did not have any reaction to these medications. She also received dose of Decadron while in the ER, she is requiring some supplemental oxygen at the moment. Nontoxic appearance. Hemodynamics are stable. Review of Systems Constitutional: Reports chills, Reports fatigue, Reports fever, Reports poor appetite, Reports weakness, Denies weight gain, Denies weight loss Ears, nose, mouth and throat: Reports headache, Reports nasal congestion, Reports nasal discharge, Reports post-nasal drip, Denies sinus pain, Denies sinus pressure, Denies sore throat Cardiovascular: Reports decreased exercise tolerance, Reports dyspnea on exertion, Denies leg edema, Denies orthopnea, Denies palpitations, Denies syncope Respiratory: Reports congestion, Reports cough, Reports dyspnea, Reports pain on inspiration, Denies excessive sputum, Denies hemoptysis, Denies wheezing Gastrointestinal: Reports heartburn, Reports loss of appetite, Reports nausea, Denies change in bowel habits, Denies constipation, Denies diarrhea, Denies vomiting Genitourinary: Denies dysuria Musculoskeletal: Reports myalgias, Denies arm numbness/tingling, Denies leg numbness/tingling, Denies limitation of motion Integumentary: Denies rash Neurological: Reports headaches, Denies confusion, Denies seizures, Denies syncope, Denies visual changes Psychiatric: Reports anxiety, Denies depression Past Medical History Past Medical History: Diabetes Mellitus, GERD/Reflux, Hyperlipidemia, Hypertension Additional Past Medical History / Comment(s): Gastritis History of Any Multi-Drug Resistant Organisms: None Reported Past Surgical History: Appendectomy, Orthopedic Surgery, Tonsillectomy Additional Past Surgical History / Comment(s): right pointer finger surgery, pilonidal cyst removed at 20yrs old; hernia repair R groin- Dr. Peres Past Anesthesia/Blood Transfusion Reactions: Postoperative Nausea & Vomiting (PONV) Past Psychological History: No Psychological Hx Reported Smoking Status: Former smoker Past Alcohol Use History: Rare Medications and Allergies Home Medications Medication Instructions Recorded Confirmed Type Atorvastatin [Lipitor] 80 mg PO DIRECTED 02/26/18 12/02/23 History Folic Acid 1 mg PO DAILY 02/26/18 12/02/23 History Losartan/Hydrochlorothiazide 1 tab PO DIRECTED 02/26/18 12/02/23 History [Losartan-Hctz 100-12.5 mg Tab] Omeprazole 40 mg PO DIRECTED 02/26/18 12/02/23 History allopurinoL [Zyloprim] 100 mg PO DIRECTED 02/26/18 12/02/23 History atenoloL [Tenormin] 50 mg PO DIRECTED 02/26/18 12/02/23 History cloNIDine HCL [Catapres] 0.1 mg PO DIRECTED 02/26/18 12/02/23 History metFORMIN HCL 500 mg PO DIRECTED 02/26/18 12/02/23 History ALPRAZolam [Xanax] 0.25 mg PO DAILY PRN 11/04/23 12/02/23 History Aspirin 81 mg PO DAILY 11/04/23 12/02/23 History Empagliflozin [Jardiance] 10 mg PO DAILY 11/04/23 12/02/23 History Ezetimibe [Zetia] 10 mg PO DIRECTED 11/04/23 12/02/23 History Gabapentin 600 mg PO DIRECTED 11/04/23 12/02/23 History amLODIPine [Norvasc] 5 mg PO DIRECTED 11/04/23 12/02/23 History Famotidine [Pepcid] 20 mg PO HS PRN 12/02/23 12/02/23 History Allergies Allergy/AdvReac Type Severity Reaction Status Date / Time Penicillins Allergy Unknown Rash/Hives Verified 12/02/23 14:46 clindamycin [From Cleocin] Allergy Rash/Hives Verified 12/02/23 14:46 Physical Exam Vitals: Vital Signs Temp Pulse Resp BP Pulse Ox 12/02/23 22:30 80 18 112/94 96 12/02/23 21:00 16 110/68 95 12/02/23 20:00 97/63 93 L 12/02/23 18:18 77 20 123/92 88 L 12/02/23 18:17 123/92 12/02/23 14:41 99.4 F 83 18 135/74 95 Intake and Output 12/02/23 12/02/23 12/03/23 14:59 22:59 06:59 Other: Weight 59.874 kg GENERAL EXAM: Alert, 73-year-old white female, appearing stated age, nontoxic appearance, on 2 L/min nasal cannula, comfortable in no apparent distress. HEAD: Normocephalic and atraumatic EYES: Normal reaction of pupils, equal size. NOSE: Clear with pink turbinates. THROAT: No erythema or exudates. NECK: No masses, no JVD. CHEST: No chest wall deformity. LUNGS: Equal air entry with right basilar dullness and inspiratory crackling. No wheezes, rhonchi. On 2 L/min nasal cannula. No conversational dyspnea or accessory muscle use while at rest. CVS: S1 and S2 normal with no audible murmur, regular rhythm. No extra heart sounds ABDOMEN: No hepatosplenomegaly, active bowel sounds, no guarding or rigidity. SPINE: No scoliosis or deformity SKIN: No rashes CENTRAL NERVOUS SYSTEM: No focal deficits, tone is normal in all 4 extremities. EXTREMITIES: There is no peripheral edema, clubbing, or cyanosis. Peripheral pulses are intact. Results - Laboratory Findings CBC and BMP: 12/02/23 15:08 12/02/23 15:08 PT/INR, D-dimer PT 10.5 sec (10.0-12.5) 12/02/23 15:09 INR 0.9 (<1.2) 12/02/23 15:09 Abnormal lab findings: Abnormal Labs 12/02/23 12/02/23 12/02/23 15:08 15:08 15:08 WBC 12.7 H Neutrophils # 10.5 H Chloride 96 L Carbon Dioxide 34 H BUN 21 H Glucose 107 H Total Bilirubin 1.7 H Urine Appearance Urine Protein Urine Glucose (UA) Urine Ketones Ur Leukocyte Esterase Urine WBC Ur Squamous Epith Cells Urine Bacteria Urine Mucus SARS-CoV-2 (PCR) Detected A 12/02/23 19:04 WBC Neutrophils # Chloride Carbon Dioxide BUN Glucose Total Bilirubin Urine Appearance Cloudy H Urine Protein 1+ H Urine Glucose (UA) 4+ H Urine Ketones 1+ H Ur Leukocyte Esterase Trace H Urine WBC 8 H Ur Squamous Epith Cells 17 H Urine Bacteria Occasional H Urine Mucus Rare H SARS-CoV-2 (PCR) - Diagnostic Findings Chest x-ray: image reviewed Assessment and Plan Assessment: Acute COVID-19 infection and right lower lobe community-acquired pneumonia Acute hypoxemic respiratory failure, secondary to above Acute leukocytosis Hypertension History of hyperlipidemia Diabetes mellitus type 2 History of diabetic neuropathy History of GERD History of gastritis Plan: Patient's medications, labs, chest x-ray reviewed Currently requiring supplemental oxygen, on 2 L/min nasal cannula There is an obvious focal right lower lobe infiltrate on CXR Patient did again test positive for COVID in the emergency department by PCR Procalcitonin level pending Blood cultures pending Continue empiric antibiotics Continue IV Decadron Will check inflammatory markers As needed Tylenol for fever DVT prophylaxis: Lovenox subcu GI prophylaxis: Protonix Home medications resumed We will continue to follow, additional recommendations forthcoming. I have personally seen and examined the patient, performed the documentation and the assessment and plan as written. Number of minutes spent on the visit:20 Time with Patient: Greater than 30
[2023-12-03 09:01] LABS: C Reactive Protein 26.1 mg/dL (0.00-0.80)
[2023-12-03] MEDS: LOSARTAN 50 MG TAB PO SCH (09:50)
[2023-12-03] MEDS: ENOXAPARIN 40 MG/0.4 ML SYRINGE SQ SCH (09:50)
[2023-12-03] MEDS: DEXAMETHASONE SOD PHOSPHATE 10 MG/ML 1 ML VIAL IVP SCH (09:50)
[2023-12-03] MEDS: atenoloL 50 MG TAB PO SCH (09:51)
[2023-12-03] MEDS: allopurinoL 100 MG TAB PO SCH (09:51)
[2023-12-03] MEDS: ASPIRIN 81 MG PO SCH (09:51)
[2023-12-03] MEDS: DAPAGLIFLOZIN PROPANEDIOL 5 MG TABLET PO SCH (09:52)
[2023-12-03] MEDS: FOLIC ACID 1 MG TAB PO SCH (09:52)
[2023-12-03] MEDS: PANTOPRAZOLE 40 MG TABLET PO SCH (09:52)
[2023-12-03] MEDS: AZITHROMYCIN 500 MG in SODIUM CHLORIDE 0.9% 250 ML IVPB SCH (09:53)
[2023-12-03] MEDS: cloNIDine HCL 0.1 MG TAB PO SCH (09:53)
[2023-12-03] MEDS: metFORMIN 500 MG TAB PO SCH (10:07)
[2023-12-03] MEDS: CHOLECALCIFEROL 25 MCG (1000 IU) TABLET PO SCH (15:16)
--- NOTE | 2023-12-03 15:54 | P.HPIM ---
History of Present Illness H&P Date: 12/03/23 Chief Complaint: Right lower lobe pneumonia, COVID-19 positive HISTORY OF PRESENT ILLNESS: This is a 73-year-old female with a previous medical history significant for hypertension and hypertensive cardiovascular disease, hyperlipidemia, diabetes mellitus type 2, with diabetic polyneuropathy, history of gastroesophageal flux disease, patient presented to the emergency department at [facility] yesterday with increased shaking chills, associated with increased coughing minimal phlegm production along with significant shortness of breath, according the patient she has had COVID 19 at that November 09 and she was not taking any Paxlovid for it at that time, she recovered well from that, patient stated that she had a gathering with her family on Friday or Friday morning she woke up and she was extremely weak complaining of increased rigors, increased shortness of breath, she was supposed to go to the hospital Friday however she refused, according to her , she contacted our office checked her oxygen saturation, it was about 88% she was referred to go to the emergency department for evaluation came to the ER yesterday showed right lower lobe pneumonia, she was started on IV antibiotic in the form of Rocephin 1 g of piggyback every 24 hours as well as Zithromax 500 mg IV piggyback every 24 hours, she was admitted to the hospital she was seen in consultation by pulmonary medicine she was started on dexamethasone 6 mg IV push every 24 hours, she will be started on vitamin D 2000 units once every day, vitamin C 500 mg once every day and zinc 225 mg once every day, she will be admitted to the hospital for further evaluation and treatment. REVIEW OF SYSTEMS: Constitutional: Positive for documented fever, no chills, no night sweats. No weight change. Positive for weakness, fatigue or lethargy. No daytime sleepiness. EENT: No headache. No blurred vision or double vision, no loss of vision. No loss of Hearing, no ringing in the ears, no dizziness. No nasal drainage or congestion. No epistaxis. No sore throat. Lungs: Positive for shortness of breath, positive for cough, no sputum production. No wheezing. Reports dyspnea with activity. Cardiovascular: No chest pain, no lower extremity edema. No palpitations. No p aroxysmal nocturnal dyspnea. No orthopnea. No lightheadedness or dizziness. No syncopal episodes. Abdominal: Reports abdominal pain. No nausea, vomiting. No diarrhea. No constipation. No bloody or tarry stools reports loss of appetite. Genitourinary: No dysuria, increased frequency, urgency. No urinary retention. Musculoskeletal: No myalgias. No muscle weakness, no gait dysfunction, no fr equent falls. No back pain. No neck pain. Integumentary: No wounds, no lesions. No rash or pruritus. No unusual bruising. No change in hair or nails. Neurologic: No aphasia. No facial droop. No change in mentation. No head injury. No headache. No paralysis. positive for neuropathy in both feet.. Psychiatric: No depression. No anxiety. No mood swings. Endocrine: No abnormal blood sugars. No weight change. PAST MEDICAL HISTORY: Hypertension and hypertensive cardiovascular disease. Mixed hyperlipidemia. Diabetes mellitus type 2. Diabetic polyneuropathy. GERD with esophagitis. Spondylosis of the lumbar spine. Osteoarthritis. Gout. PAST SURGICAL HISTORY: Tonsillectomy and adenoidectomy. Right inguinal hernia repair. Pilonidal cyst removed. Right index finger surgery. Colonoscopy and EGD. SOCIAL HISTORY: FAMILY HISTORY: PHYSICAL EXAMINATION: General: 73-year-old female examined in bed in no distress. HEENT: Head is atraumatic, normocephalic, pupils were equal round reactive to light and recommendation, extraocular muscle movement were intact, sclera nonict olivia, conjunctivae were pale, mucous membranes of the mouth are somewhat dry. Neck: Supple, no JVP, normal carotid upstroke bilaterally, no lymphadenopathy. Chest: Decreased breath sounds at the bases, few rhonchi, no expiratory wheezes, no chest wall tenderness, no intercostal retractions. Heart: First heart sound is normal, second heart sound is normal there is systolic ejection murmur 2 over cystic in the left sternal border. Abdomen: Soft, nontender, nondistended, positive bowel sounds. Extremities: There is no edema no calf tenderness DP +1 bilaterally. Neurologic examination: Patient is awake alert and oriented x3, cranial nerves II-12 appear grossly intact, muscle power were 5 out of 5 in upper extremities and 5 out of 5 in bilateral lower extremities, deep tendon reflexes normal bilaterally. ASSESSMENT AND PLAN: 1. Right lower lobe community-acquired pneumonia in a patient with COVID-19 positive PCR. Patient stated that she has had COVID in November 10, 2023, she think that she has recovered from it, continue patient on IV antibiotic Zithromax 500 mg of piggyback every 24 hours, ceftriaxone 1 g of piggyback every 24 hours, check mycoplasma antibody IgG and IgM, check urine Legionella antigen, sputum culture, blood culture, continue Decadron 6 mg IV push every 24 hours, continue zinc 220 mg orally once every day, continue vitamin C 500 mg once every day continue vitamin D3 2000 units once every day, monitor the patient very closely pulmonary consultation appreciated. 2. Hypertension and hypertensive cardiovascular disease. Continue patient on losartan 100/12.5 mg orally once every day, continue atenolol 50 mg orally once every day, continue amlodipine 5 mg once every day as well as clonidine 0.1 mg orally twice every day 3. Mixed hyperlipidemia. Continue patient on atorvastatin 80 mg once every day, Zetia 10 mg once every day, monitor lipid panel, keep LDL 55-70. 4. Diabetes mellitus type 2. Continue patient on metformin 500 mg orally twice every day, continue Farxiga 5 mg orally once every day, started the patient on sliding scale insulin. 5. History of gout. Continue allopurinol 100 mg orally once every day. 6. GERD with esophagitis. Continue famotidine 20 mg at bedtime, pantoprazole 40 mg orally once every day. 7. Spondylosis of the lumbar spine continue current pain management with gabapentin 600 mg orally twice every day continue Tylenol as needed 8. Diabetic polyneuropathy. Continue gabapentin 600 mg orally twice every day, monitor the patient symptoms very closely. 9. History of PAD. Stable at this time, patient is up-to-date on her arterial Doppler of both lower extremities. 10. DVT prophylaxis. Continue Lovenox 40 mg subcutaneous every 24 hours. 11. GI prophylaxis. Continue PPI, continue famotidine 20 mg once every day. 12. Admit to inpatient. Estimated length of stay 2 midnights 13. Patient is full code. Past Medical History Past Medical History: Diabetes Mellitus, GERD/Reflux, Hyperlipidemia, Hypertension Additional Past Medical History / Comment(s): Gastritis History of Any Multi-Drug Resistant Organisms: None Reported Past Surgical History: Appendectomy, Orthopedic Surgery, Tonsillectomy Additional Past Surgical History / Comment(s): right pointer finger surgery, pilonidal cyst removed at 20yrs old; hernia repair R groin- Dr. Peres Past Anesthesia/Blood Transfusion Reactions: Postoperative Nausea & Vomiting (PO NV) Past Psychological History: No Psychological Hx Reported Smoking Status: Former smoker Past Alcohol Use History: Rare Additional Past Alcohol Use History / Comment(s): Smoked a few years in college. wine occasional with dinner Past Drug Use History: None Reported Medications and Allergies Home Medications Medication Instructions Recorded Confirmed Type Atorvastatin [Lipitor] 80 mg PO HS 02/26/18 12/03/23 History Folic Acid 1 mg PO DAILY 02/26/18 12/02/23 History Losartan/Hydrochlorothiazide 1 tab PO DAILY 02/26/18 12/03/23 History [Losartan-Hctz 100-12.5 mg Tab] Omeprazole 40 mg PO DAILY 02/26/18 12/03/23 History allopurinoL [Zyloprim] 100 mg PO DAILY 02/26/18 12/03/23 History atenoloL [Tenormin] 50 mg PO DAILY 02/26/18 12/03/23 History cloNIDine HCL [Catapres] 0.1 mg PO BID 02/26/18 12/03/23 History metFORMIN HCL 500 mg PO BID 02/26/18 12/03/23 History ALPRAZolam [Xanax] 0.25 mg PO DAILY PRN 11/04/23 12/02/23 History Aspirin 81 mg PO DAILY 11/04/23 12/02/23 History Empagliflozin [Jardiance] 10 mg PO DAILY 11/04/23 12/02/23 History Ezetimibe [Zetia] 10 mg PO HS 11/04/23 12/03/23 History Gabapentin 600 mg PO BID 11/04/23 12/03/23 History amLODIPine [Norvasc] 5 mg PO HS 11/04/23 12/03/23 History Famotidine [Pepcid] 20 mg PO HS PRN 12/02/23 12/02/23 History Ascorbic Acid [Vitamin C] 500 mg PO BID tab 12/05/23 Rx Azithromycin [Zithromax] 500 mg PO DAILY 3 Days #3 tab 12/05/23 Rx Cholecalciferol [Vitamin D3 (25 25 mcg PO DAILY tab 12/05/23 Rx Mcg = 1000 Iu)] Zinc Sulfate [Orazinc] 220 mg PO DAILY cap 12/05/23 Rx dexAMETHasone [Decadron] 6 mg PO DAILY #7 tablet 12/05/23 Rx Allergies Allergy/AdvReac Type Severity Reaction Status Date / Time Penicillins Allergy Unknown Rash/Hives Verified 12/02/23 14:46 clindamycin [From Cleocin] Allergy Rash/Hives Verified 12/02/23 14:46 Physical Exam Vitals: Vital Signs Pulse Resp BP Pulse Ox 12/03/23 09:20 78 18 114/72 97 12/03/23 05:55 76 18 110/70 98 12/02/23 22:30 80 18 112/94 96 12/02/23 21:00 16 110/68 95 12/02/23 20:00 97/63 93 L 12/02/23 18:18 77 20 123/92 88 L 12/02/23 18:17 123/92 Intake and Output 12/02/23 12/03/23 12/03/23 22:59 06:59 14:59 Other: Weight 59.874 kg Results CBC & Chem 7: 12/04/23 04:57 12/04/23 04:57 Labs: Abnormal Lab Results - Last 24 Hours (Table) 12/02/23 12/02/23 12/02/23 Range/Units 15:08 15:08 15:08 WBC 12.7 H (3.8-10.6) k/uL Neutrophils # 10.5 H (1.3-7.7) k/uL Chloride 96 L (98-107) mmol/L Carbon Dioxide 34 H (22-30) mmol/L BUN 21 H (7-17) mg/dL Glucose 107 H (74-99) mg/dL Total Bilirubin 1.7 H (0.2-1.3) mg/dL C-Reactive Protein (0.00-0.80) mg/dL Procalcitonin (0.02-0.50) ng/mL Urine Appearance (Clear) Urine Protein (Negative) Urine Glucose (UA) (Negative) Urine Ketones (Negative) Ur Leukocyte Esterase (Negative) Urine WBC (0-5) /hpf Ur Squamous Epith Cells (0-4) /hpf Urine Bacteria (None) /hpf Urine Mucus (None) /hpf SARS-CoV-2 (PCR) Detected A (Not Detectd) 12/02/23 12/02/23 12/03/23 Range/Units 15:08 19:04 04:46 WBC (3.8-10.6) k/uL Neutrophils # (1.3-7.7) k/uL Chloride (98-107) mmol/L Carbon Dioxide (22-30) mmol/L BUN (7-17) mg/dL Glucose (74-99) mg/dL Total Bilirubin (0.2-1.3) mg/dL C-Reactive Protein 26.10 H (0.00-0.80) mg/dL Procalcitonin 27.80 H (0.02-0.50) ng/mL Urine Appearance Cloudy H (Clear) Urine Protein 1+ H (Negative) Urine Glucose (UA) 4+ H (Negative) Urine Ketones 1+ H (Negative) Ur Leukocyte Esterase Trace H (Negative) Urine WBC 8 H (0-5) /hpf Ur Squamous Epith Cells 17 H (0-4) /hpf Urine Bacteria Occasional H (None) /hpf Urine Mucus Rare H (None) /hpf SARS-CoV-2 (PCR) (Not Detectd) Thrombosis Risk Factor Assmnt - Choose All That Apply Any of the Below Risk Factors Present?: Yes Each Risk Factor Represents 2 Points: Age 61-74 years Thrombosis Risk Factor Assessment Total Risk Factor Score: 2 Thrombosis Risk Factor Assessment Level: Low Risk
[2023-12-03] MEDS: INSULIN ASPART (NovoLOG) 100 UNIT/ML VIAL SQ SCH (17:49)
[2023-12-03] MEDS: amLODIPine 5 MG TAB PO SCH (21:58)
[2023-12-03] MEDS: ASCORBIC ACID 500 MG TAB PO SCH (21:58)
[2023-12-03] MEDS: EZETIMIBE 10 MG TAB PO SCH (21:59)
[2023-12-03] MEDS: ALPRAZolam 0.25 MG TAB PO PRN (21:59)
[2023-12-03] MEDS: ATORVASTATIN 80 MG TAB PO SCH (21:59)
[2023-12-04 07:59] VITALS: RESP 18
[2023-12-04 08:23] LABS: Basophils # (A) 0.01 X 10*3/uL (0.00-0.10); Basophils % (A) 0.1 %; Eosinophils # (A) 0 X 10*3/uL (0.04-0.35); Eosinophils % (A) 0 %; HCT 28.7 % (37.2-46.3); HGB 9.7 g/dL (12.0-15.0); Lymphocytes # (A) 0.95 X 10*3/uL (0.90-5.00); Lymphocytes % (A) 12.6 %; MCH 32.7 pg (27.0-32.0); MCHC 33.8 g/dL (32.0-37.0); MCV 96.6 FL (80.0-97.0); Monocytes # (A) 0.55 X 10*3/uL (0.20-1.00); Monocytes % (A) 7.3 %; NRBC Per 100 WBC 0 X 10*3/uL (0.00-0.01); Neutrophils % (A) 78.3 %; Platelet Count 175 X 10*3/uL (140-440); RBC 2.97 X 10*6/uL (4.10-5.20); RDW 15.1 % (11.5-14.5); WBC 7.54 X 10*3/uL (4.50-10.00)
[2023-12-04 08:38] LABS: ALT 11 U/L (8-44); AST 17 U/L (13-35); Albumin 2.9 g/dL (3.8-4.9); Albumin/Globulin Ratio 1.53 Ratio (1.60-3.17); Alkaline Phosphatase 76 U/L (41-126); BUN/Creat Ratio 28.14 Ratio (12.00-20.00); Blood Urea Nitrogen 19.7 mg/dL (9.0-27.0); Calcium 7.5 mg/dL (8.7-10.3); Carbon Dioxide 20.7 mmol/L (21.6-31.8); Chloride 110 mmol/L (96-109); Globulin 1.9 g/dL (1.6-3.3); Glucose 151 mg/dL (70-110); Potassium 3.2 mmol/L (3.5-5.5); Sodium 145 mmol/L (135-145); Total Bilirubin 0.4 mg/dL (0.3-1.2); Total Protein 4.8 g/dL (6.2-8.2)
[2023-12-04] MEDS: ZINC SULFATE 220 MG CAP PO SCH (09:16)
--- NOTE | 2023-12-04 15:11 | P.PN ---
Subjective Progress Note Date: 12/04/23 Patient is a 73-year-old female with past medical history significant for diabetes mellitus, hypertension, hyperlipidemia, GERD, gastritis, anxiety. Patient states that approximately 2 weeks ago she was having headache, intermittent fevers, chills, runny nose, postnasal drip, non-productive cough. She tested herself for COVID at home, and had a positive home test. Did not pursue any outpatient treatment. Reportedly, previously vaccinated for COVID, but has not had any booster injections. This is her first known COVID infection. Denies any pre-existing lung disease. Her primary care provider is Dr. Real. She initially had improvement in her URI symptoms, and then starting on Friday developed worsening shortness of breath, mostly nonproductive cough, intermittent fevers. She has some right-sided chest discomfort with coughing. She was severely weak, could not walk to the mailbox. Her went and bought a pulse oximeter, states that it was reading low, 88 to 90%. She called her primary care provider, who directed her to the emergency department. She is currently being evaluated in the emergency department, room 14. She is on 2 L/min nasal cannula. SpO2 is 96%. She has no acute respiratory distress. Chest x-ray demonstrated right lung opacity obscuring the right hemidiaphragm and right midlung. CBC 12.7, hemoglobin 12.5, hematocrit 38.2, platelets 195. CMP: Sodium 139, potassium 3.5, chloride 96, serum bicarb 34, BUN 21, creatinine 0.8, glucose 107. Lactic 2. LFTs unremarkable. Troponin less than 0.012. Normal saline is infusing at 130 mL/h. Patient did again test positive for COVID-19 via PCR. Patient was placed on empiric antibiotics in the form of azithromycin and Rocephin in the emergency department. She does have reported allergies to penicillins and clindamycin, but did not have any reaction to these medications. She also received dose of Decadron while in the ER, she is requiring some supplemental oxygen at the moment. Nontoxic appearance. Hemodynamics are stable. The patient is seen today December 04, 2023 in follow-up on the regular medical floor. She is currently sitting up in bed. Awake and alert in no acute distress. Maintaining good O2 saturations in the 90s on room air. She is continued on Decadron and vitamin supplements. Antibiotics in the form of ceftriaxone and azithromycin for an elevated procalcitonin. White count 7.5. Hemoglobin 9.7. Platelets 175. Sodium 145. Potassium 3.2. Bicarb 21. BUN 20. Creatinine 0.7. Glucose 151. Legionella screen negative. Objective - Vital Signs Vital signs: Vital Signs Temp 97.5 F L 12/04/23 14:00 Pulse 67 12/04/23 14:00 Resp 18 12/04/23 14:00 BP 133/81 12/04/23 14:00 Pulse Ox 96 12/04/23 14:00 FiO2 Intake & Output 12/03/23 12/04/23 12/04/23 18:59 06:59 18:59 Weight 59.874 kg Other: Voiding Method Toilet # Voids 2 - Exam GENERAL EXAM: Alert, pleasant 73-year-old female, on room air, comfortable in no apparent distress. HEAD: Normocephalic. EYES: Normal reaction of pupils, equal size. NOSE: Clear with pink turbinates. THROAT: No erythema or exudates. NECK: No masses, no JVD. CHEST: No chest wall deformity. LUNGS: Equal air entry with bilateral scattered rhonchi. CVS: S1 and S2 normal with no audible murmur, regular rhythm. ABDOMEN: No hepatosplenomegaly, normal bowel sounds, no guarding or rigidity. SPINE: No scoliosis or deformity SKIN: No rashes CENTRAL NERVOUS SYSTEM: No focal deficits, tone is normal in all 4 extremities. EXTREMITIES: There is no peripheral edema. No clubbing, no cyanosis. Peripheral pulses are intact. - Labs CBC & Chem 7: 12/04/23 04:57 12/04/23 04:57 Labs: Abnormal Lab Results - Last 24 Hours (Table) 12/04/23 12/04/23 Range/Units 04:57 04:57 RBC 2.97 L (4.10-5.20) X 10*6/uL Hgb 9.7 L (12.0-15.0) g/dL Hct 28.7 L (37.2-46.3) % MCH 32.7 H (27.0-32.0) pg RDW 15.1 H (11.5-14.5) % Immature Gran # 0.13 H (0.00-0.04) X 10*3/uL Eosinophils # 0 L (0.04-0.35) X 10*3/uL Potassium 3.2 L (3.5-5.5) mmol/L Chloride 110 H (96-109) mmol/L Carbon Dioxide 20.7 L (21.6-31.8) mmol/L Anion Gap 14.30 H (4.00-12.00) mmol/L BUN/Creatinine Ratio 28.14 H (12.00-20.00) Ratio Glucose 151 H (70-110) mg/dL Calcium 7.5 L (8.7-10.3) mg/dL Total Protein 4.8 L (6.2-8.2) g/dL Albumin 2.9 L (3.8-4.9) g/dL Albumin/Globulin Ratio 1.53 L (1.60-3.17) Ratio Microbiology - Last 24 Hours (Table) 12/02/23 18:37 Blood Culture - Preliminary Blood 12/02/23 18:00 Blood Culture - Preliminary Blood Assessment and Plan Assessment: Acute COVID-19 infection and right lower lobe community-acquired pneumonia Acute hypoxemic respiratory failure, secondary to above, improved and on room air Acute leukocytosis, improved Hypertension History of hyperlipidemia Diabetes mellitus type 2 History of diabetic neuropathy History of GERD History of gastritis Plan: The patient was seen and evaluated Labs and medications reviewed Continue antibiotics Continue Decadron Continue vitamin supplements Stable and on room air Follow-up chest x-ray in a.m. We will continue to follow I have personally seen and examined the patient, performed the documentation and the assessment and plan as written. Number of minutes spent on the visit: 10.
[2023-12-04 16:48] LABS: Glucose,Whole Blood 145 mg/dL (70-110)
[2023-12-04 21:09] LABS: Glucose,Whole Blood 146 mg/dL (70-110)
[2023-12-05 06:33] LABS: Glucose,Whole Blood 134 mg/dL (70-110)
[2023-12-05 06:59] LABS: Glucose,Whole Blood 137 mg/dL (70-110)
[2023-12-05 06:59] LABS: Glucose,Whole Blood 124 mg/dL (70-110)
[2023-12-05 07:00] LABS: Glucose,Whole Blood 160 mg/dL (70-110)
[2023-12-05 07:01] LABS: Glucose,Whole Blood 175 mg/dL (70-110)
[2023-12-05 07:17] LABS: Glucose,Whole Blood 153 mg/dL (70-110)
[2023-12-05 11:35] LABS: Glucose,Whole Blood 102 mg/dL (70-110)
[2023-12-05 13:52] VITALS: BP 108/66; PULSE 60; TEMP 97.5
--- NOTE | 2023-12-05 14:12 | P.DS ---
Providers Date of admission: 12/03/23 12:20 Expected date of discharge: 12/05/23 Attending physician: Amador Real Consults: 12/02/23 19:21 Consult Physician Urgent Consulting Provider: Pako Chung Consult Reason/Comments: Pneumonia, COVID Do you want consulting provider notified?: Yes, Notify in am Primary care physician: Amador Real Hospital Course: HISTORY OF PRESENT ILLNESS: This is a 73-year-old female with a previous medical history significant for hypertension and hypertensive cardiovascular disease, hyperlipidemia, diabetes mellitus type 2, with diabetic polyneuropathy, history of gastroesophageal flux disease, patient presented to the emergency department at [facility] yesterday with increased shaking chills, associated with increased coughing minimal phlegm production along with significant shortness of breath, according the patient she has had COVID 19 at that November 09 and she was not taking any Paxlovid for it at that time, she recovered well from that, patient stated that she had a gathering with her family on Friday or Friday morning she woke up and she was extremely weak complaining of increased rigors, increased shortness of breath, she was supposed to go to the hospital Friday however she refused, according to her , she contacted our office checked her oxygen saturation, it was about 88% she was referred to go to the emergency department for evaluation came to the ER yesterday showed right lower lobe pneumonia, she was started on IV antibiotic in the form of Rocephin 1 g of piggyback every 24 hours as well as Zithromax 500 mg IV piggyback every 24 hours, she was admitted to the hospital she was seen in consultation by pulmonary medicine she was started on dexamethasone 6 mg IV push every 24 hours, she will be started on vitamin D 2000 units once every day, vitamin C 500 mg once every day and zinc 225 mg once every day, she will be admitted to the hospital for further evaluation and treatment. 12/03: Patient is sitting up in the edge of the bed is complaining of feeling weak today, she continues to be somewhat short of breath, not as bad as yesterday, she continues to receive ceftriaxone 1 g piggyback every 24 hours and Zithromax 500 mg once every day, she has been getting Decadron 6 mg a push every day, continue current treatment plan, continue to monitor the patient for another 24 hours, hopefully she will be able to switch to oral Decadron as well as Zithromax 500 mg daily for 3 days and she can be discharged home tomorrow morning. 12/04: Patient is sitting up in bed no apparent distress, she denies any chest pain, shortness of breath, she is feeling better today, she has no abdominal pain, nausea vomiting she had episode of diarrhea likely due to antibiotic, she seems to be doing much better today, she will likely be discharged home today, follow-up with us as an outpatient DISCHARGE DIAGNOSES: 1. Right lower lobe community-acquired pneumonia in a patient with COVID-19 pos itive PCR. 2. Hypertension and hypertensive cardiovascular disease. 3. Mixed hyperlipidemia. 4. Diabetes mellitus type 2. 5. History of gout. 6. GERD with esophagitis. 7. Spondylosis of the lumbar spine. 8. Diabetic polyneuropathy. 9. History of PAD. Patient Condition at Discharge: Serious Plan - Discharge Summary New Discharge Prescriptions: New Zinc Sulfate [Orazinc] 220 mg PO DAILY cap Ascorbic Acid [Vitamin C] 500 mg PO BID tab Cholecalciferol [Vitamin D3 (25 Mcg = 1000 Iu)] 25 mcg PO DAILY tab Azithromycin [Zithromax] 500 mg PO DAILY 3 Days #3 tab dexAMETHasone [Decadron] 6 mg PO DAILY #7 tablet Continue cloNIDine HCL [Catapres] 0.1 mg PO BID Omeprazole 40 mg PO DAILY Losartan/Hydrochlorothiazide [Losartan-Hctz 100-12.5 mg Tab] 1 tab PO DAILY Atorvastatin [Lipitor] 80 mg PO HS allopurinoL [Zyloprim] 100 mg PO DAILY Folic Acid 1 mg PO DAILY atenoloL [Tenormin] 50 mg PO DAILY metFORMIN HCL 500 mg PO BID Empagliflozin [Jardiance] 10 mg PO DAILY amLODIPine [Norvasc] 5 mg PO HS Gabapentin 600 mg PO BID Ezetimibe [Zetia] 10 mg PO HS Aspirin 81 mg PO DAILY ALPRAZolam [Xanax] 0.25 mg PO DAILY PRN PRN Reason: Anxiety Famotidine [Pepcid] 20 mg PO HS PRN PRN Reason: Heartburn Discharge Medication List Atorvastatin [Lipitor] 80 mg PO HS 02/26/18 [History] Folic Acid 1 mg PO DAILY 02/26/18 [History] Losartan/Hydrochlorothiazide [Losartan-Hctz 100-12.5 mg Tab] 1 tab PO DAILY 02/26/18 [History] Omeprazole 40 mg PO DAILY 02/26/18 [History] allopurinoL [Zyloprim] 100 mg PO DAILY 02/26/18 [History] atenoloL [Tenormin] 50 mg PO DAILY 02/26/18 [History] cloNIDine HCL [Catapres] 0.1 mg PO BID 02/26/18 [History] metFORMIN HCL 500 mg PO BID 02/26/18 [History] ALPRAZolam [Xanax] 0.25 mg PO DAILY PRN 11/04/23 [History] Aspirin 81 mg PO DAILY 11/04/23 [History] Empagliflozin [Jardiance] 10 mg PO DAILY 11/04/23 [History] Ezetimibe [Zetia] 10 mg PO HS 11/04/23 [History] Gabapentin 600 mg PO BID 11/04/23 [History] amLODIPine [Norvasc] 5 mg PO HS 11/04/23 [History] Famotidine [Pepcid] 20 mg PO HS PRN 12/02/23 [History] Ascorbic Acid [Vitamin C] 500 mg PO BID tab 12/05/23 [Rx] Azithromycin [Zithromax] 500 mg PO DAILY 3 Days #3 tab 12/05/23 [Rx] Cholecalciferol [Vitamin D3 (25 Mcg = 1000 Iu)] 25 mcg PO DAILY tab 12/05/23 [Rx] Zinc Sulfate [Orazinc] 220 mg PO DAILY cap 12/05/23 [Rx] dexAMETHasone [Decadron] 6 mg PO DAILY #7 tablet 12/05/23 [Rx] Follow up Appointment(s)/Referral(s): Pako Chung MD [STAFF PHYSICIAN] - 1 Week Amador Real MD [Primary Care Provider] - 1 Week Discharge Disposition: HOME SELF-CARE
--- NOTE | 2023-12-05 14:16 | P.PN ---
Subjective Progress Note Date: 12/05/23 Patient is a 73-year-old female with past medical history significant for diabetes mellitus, hypertension, hyperlipidemia, GERD, gastritis, anxiety. Patient states that approximately 2 weeks ago she was having headache, intermittent fevers, chills, runny nose, postnasal drip, non-productive cough. She tested herself for COVID at home, and had a positive home test. Did not pursue any outpatient treatment. Reportedly, previously vaccinated for COVID, but has not had any booster injections. This is her first known COVID infection. Denies any pre-existing lung disease. Her primary care provider is Dr. Real. She initially had improvement in her URI symptoms, and then starting on Friday developed worsening shortness of breath, mostly nonproductive cough, intermittent fevers. She has some right-sided chest discomfort with coughing. She was severely weak, could not walk to the mailbox. Her went and bought a pulse oximeter, states that it was reading low, 88 to 90%. She called her primary care provider, who directed her to the emergency department. She is currently being evaluated in the emergency department, room 14. She is on 2 L/min nasal cannula. SpO2 is 96%. She has no acute respiratory distress. Chest x-ray demonstrated right lung opacity obscuring the right hemidiaphragm and right midlung. CBC 12.7, hemoglobin 12.5, hematocrit 38.2, platelets 195. CMP: Sodium 139, potassium 3.5, chloride 96, serum bicarb 34, BUN 21, creatinine 0.8, glucose 107. Lactic 2. LFTs unremarkable. Troponin less than 0.012. Normal saline is infusing at 130 mL/h. Patient did again test positive for COVID-19 via PCR. Patient was placed on empiric antibiotics in the form of azithromycin and Rocephin in the emergency department. She does have reported allergies to penicillins and clindamycin, but did not have any reaction to these medications. She also received dose of Decadron while in the ER, she is requiring some supplemental oxygen at the moment. Nontoxic appearance. Hemodynamics are stable. The patient is seen today December 04, 2023 in follow-up on the regular medical floor. She is currently sitting up in bed. Awake and alert in no acute distress. Maintaining good O2 saturations in the 90s on room air. She is continued on Decadron and vitamin supplements. Antibiotics in the form of ceftriaxone and azithromycin for an elevated procalcitonin. White count 7.5. Hemoglobin 9.7. Platelets 175. Sodium 145. Potassium 3.2. Bicarb 21. BUN 20. Creatinine 0.7. Glucose 151. Legionella screen negative. The patient is seen today December 05, 2023 in follow-up on the regular medical floor. She is awake and alert in no acute distress. Sitting up in bed. Maintaining good O2 saturations in the 90s on room air. Denies any worsening shortness of breath, cough or congestion. She has been afebrile. Hemodynamically stable. Remains on ceftriaxone. Completed azithromycin. Continued on Decadron. Continued on vitamin supplements. Lovenox for DVT prop hylaxis. Objective - Vital Signs Vital signs: Vital Signs Temp 97.5 F L 12/05/23 13:52 Pulse 60 12/05/23 13:52 Resp 18 12/05/23 13:52 BP 108/66 12/05/23 13:52 Pulse Ox 97 12/05/23 13:52 FiO2 Intake & Output 12/04/23 12/05/23 12/05/23 18:59 06:59 18:59 Other: Voiding Method Toilet # Voids 2 2 - Exam GENERAL EXAM: Alert, 73-year-old female, on room air, sitting up in bed, comfortable in no apparent distress. HEAD: Normocephalic. EYES: Normal reaction of pupils, equal size. NOSE: Clear with pink turbinates. THROAT: No erythema or exudates. NECK: No masses, no JVD. CHEST: No chest wall deformity. LUNGS: Equal air entry with bilateral scattered rhonchi. CVS: S1 and S2 normal with no audible murmur, regular rhythm. ABDOMEN: No hepatosplenomegaly, normal bowel sounds, no guarding or rigidity. SPINE: No scoliosis or deformity SKIN: No rashes CENTRAL NERVOUS SYSTEM: No focal deficits, tone is normal in all 4 extremities. EXTREMITIES: There is no peripheral edema. No clubbing, no cyanosis. Peripheral pulses are intact. - Labs CBC & Chem 7: 12/04/23 04:57 12/04/23 04:57 Labs: Abnormal Lab Results - Last 24 Hours (Table) 12/03/23 12/03/23 12/03/23 Range/Units 10:08 17:41 21:03 POC Glucose (mg/dL) 153 H 175 H 160 H (70-110) mg/dL 12/04/23 12/04/23 12/04/23 Range/Units 05:37 11:24 16:46 POC Glucose (mg/dL) 137 H 124 H 145 H (70-110) mg/dL 12/04/23 12/05/23 Range/Units 21:07 06:31 POC Glucose (mg/dL) 146 H 134 H (70-110) mg/dL Microbiology - Last 24 Hours (Table) 12/02/23 18:37 Blood Culture - Preliminary Blood 12/02/23 18:00 Blood Culture - Preliminary Blood Assessment and Plan Assessment: Acute COVID-19 infection and right lower lobe community-acquired pneumonia Acute hypoxemic respiratory failure, secondary to above, improved and on room air Acute leukocytosis, improved Hypertension History of hyperlipidemia Diabetes mellitus type 2 History of diabetic neuropathy History of GERD History of gastritis Plan: The patient was seen and evaluated Medications reviewed Stable and on room air Cleared for discharge Complete a course of antibiotics Follow-up in our office in 1 week Will plan for follow-up chest x-ray then I have personally seen and examined the patient, performed the documentation and the assessment and plan as written. Number of minutes spent on the visit: 10.
--- NOTE | 2023-12-05 16:06 | P.PN ---
Subjective Progress Note Date: 12/04/23 HISTORY OF PRESENT ILLNESS: This is a 73-year-old female with a previous medical history signif icant for hypertension and hypertensive cardiovascular disease, hyperlipidemia, diabetes mellitus type 2, with diabetic polyneuropathy, history of gastroesophageal flux disease, patient presented to the emergency department at [facility] yesterday with increased shaking chills, associated with increased coughing minimal phlegm production along with significant shortness of breath, according the patient she has had COVID 19 at that November 09 and she was not taking any Paxlovid for it at that time, she recovered well from that, patient stated that she had a gathering with her family on Friday or Friday morning she woke up and she was extremely weak complaining of increased rigors, increased shortness of breath, she was supposed to go to the hospital Friday however she refused, according to her , she contacted our office checked her oxygen saturation, it was about 88% she was referred to go to the emergency department for evaluation came to the ER yesterday showed right lower lobe pneumonia, she was started on IV antibiotic in the form of Rocephin 1 g of piggyback every 24 hours as well as Zithromax 500 mg IV piggyback every 24 hours, she was admitted to the hospital she was seen in consultation by pulmonary medicine she was started on dexamethasone 6 mg IV push every 24 hours, she will be started on vitamin D 2000 units once every day, vitamin C 500 mg once every day and zinc 225 mg once every day, she will be admitted to the hospital for further evaluation and treatment. 12/03: Patient is sitting up in the edge of the bed is complaining of feeling weak today, she continues to be somewhat short of breath, not as bad as yesterday, she continues to receive ceftriaxone 1 g piggyback every 24 hours and Zithromax 500 mg once every day, she has been getting Decadron 6 mg a push every day, continue current treatment plan, continue to monitor the patient for a nother 24 hours, hopefully she will be able to switch to oral Decadron as well as Zithromax 500 mg daily for 3 days and she can be discharged home tomorrow morning. REVIEW OF SYSTEMS: Constitutional: Positive for documented fever, no chills, no night sweats. No weight change. Positive for generalized weakness, fatigue or lethargy. No daytime sleepiness. EENT: No headache. No blurred vision or double vision, no loss of vision. No loss of Hearing, no ringing in the ears, no dizziness. No nasal drainage or congestion. No epistaxis. No sore throat. Lungs: Positive for shortness of breath, positive for cough, positive for sputum production. No wheezing. Reports dyspnea with activity. Cardiovascular: No chest pain, no lower extremity edema. No palpitations. No paroxysmal nocturnal dyspnea. No orthopnea. No lightheadedness or dizziness. No syncopal episodes. Abdominal: Reports abdominal pain. No nausea, vomiting. No diarrhea. No constipation. No bloody or tarry stools reports loss of appetite. Genitourinary: No dysuria, increased frequency, urgency. No urinary retention. Musculoskeletal: No myalgias. No muscle weakness, no gait dysfunction, no frequent falls. No back pain. No neck pain. Integumentary: No wounds, no lesions. No rash or pruritus. No unusual bru ising. No change in hair or nails. Neurologic: No aphasia. No facial droop. No change in mentation. No head injury. No headache. No paralysis. positive for neuropathy in both feet. Psychiatric: No depression. Positive for anxiety. No mood swings. Endocrine: No abnormal blood sugars. No weight change. PHYSICAL EXAMINATION: General: 73-year-old female examined in bed in no distress. HEENT: Head is atraumatic, normocephalic, pupils were equal round reactive to light and recommendation, extraocular muscle movement were intact, sclera nonicteric, conjunctivae were pale, mucous membranes of the mouth are somewhat dry. Neck: Supple, no JVP, normal carotid upstroke bilaterally, no lymphadenopathy. Chest: Decreased breath sounds at the bases, few rhonchi, no expiratory wheezes , no chest wall tenderness, no intercostal retractions. Heart: First heart sound is normal, second heart sound is normal there is systolic ejection murmur 2 over cystic in the left sternal border. Abdomen: Soft, nontender, nondistended, positive bowel sounds. Extremities: There is no edema no calf tenderness DP +1 bilaterally. Neurologic examination: Patient is awake alert and oriented x3, cranial nerves II-12 appear grossly intact, muscle power were 5 out of 5 in upper extremities and 5 out of 5 in bilateral lower extremities, deep tendon reflexes normal bilaterally. ASSESSMENT AND PLAN: 1. Right lower lobe community-acquired pneumonia in a patient with COVID-19 positive PCR. Patient stated that she has had COVID in November 10, 2023, she think that she has recovered from it, continue patient on IV antibiotic Zithromax 500 mg of piggyback every 24 hours, ceftriaxone 1 g of piggyback every 24 hours, check mycoplasma antibody IgG and IgM, check urine Legionella antigen, sputum culture, blood culture, continue Decadron 6 mg IV push every 24 hours, continue zinc 220 mg orally once every day, continue vitamin C 500 mg once every day continue vitamin D3 2000 units once every day, monitor the patient very closely pulmonary consultation appreciated. 2. Hypertension and hypertensive cardiovascular disease. Continue patient on losartan 100/12.5 mg orally once every day, continue atenolol 50 mg orally once every day, continue amlodipine 5 mg once every day as well as clonidine 0.1 mg orally twice every day 3. Mixed hyperlipidemia. Continue patient on atorvastatin 80 mg once every day, Zetia 10 mg once every day, monitor lipid panel, keep LDL 55-70. 4. Diabetes mellitus type 2. Continue patient on metformin 500 mg orally twice every day, continue Farxiga 5 mg orally once every day, started the patient on sliding scale insulin. 5. History of gout. Continue allopurinol 100 mg orally once every day. 6. GERD with esophagitis. Continue famotidine 20 mg at bedtime, pantoprazole 40 mg orally once every day. 7. Spondylosis of the lumbar spine continue current pain management with gabapentin 600 mg orally twice every day continue Tylenol as needed 8. Diabetic polyneuropathy. Continue gabapentin 600 mg orally twice every day, monitor the patient symptoms very closely. 9. History of PAD. Stable at this time, patient is up-to-date on her arterial Doppler of both lower extremities. 10. DVT prophylaxis. Continue Lovenox 40 mg subcutaneous every 24 hours. 11. GI prophylaxis. Continue PPI, continue famotidine 20 mg once every day. 12. Admit to inpatient. Estimated length of stay 2 midnights 13. Patient is full code. Objective - Vital Signs Vital signs: Vital Signs Temp 97.8 F 12/04/23 07:58 Pulse 63 12/04/23 07:58 Resp 18 12/04/23 07:58 BP 128/74 12/04/23 07:58 Pulse Ox 96 12/04/23 07:58 FiO2 Intake & Output 12/03/23 12/04/23 12/04/23 18:59 06:59 18:59 Weight 59.874 kg Other: Voiding Method Toilet # Voids 2 - Labs CBC & Chem 7: 12/04/23 04:57 12/04/23 04:57 Labs: Abnormal Lab Results - Last 24 Hours (Table) 12/04/23 12/04/23 Range/Units 04:57 04:57 RBC 2.97 L (4.10-5.20) X 10*6/uL Hgb 9.7 L (12.0-15.0) g/dL Hct 28.7 L (37.2-46.3) % MCH 32.7 H (27.0-32.0) pg RDW 15.1 H (11.5-14.5) % Immature Gran # 0.13 H (0.00-0.04) X 10*3/uL Eosinophils # 0 L (0.04-0.35) X 10*3/uL Potassium 3.2 L (3.5-5.5) mmol/L Chloride 110 H (96-109) mmol/L Carbon Dioxide 20.7 L (21.6-31.8) mmol/L Anion Gap 14.30 H (4.00-12.00) mmol/L BUN/Creatinine Ratio 28.14 H (12.00-20.00) Ratio Glucose 151 H (70-110) mg/dL Calcium 7.5 L (8.7-10.3) mg/dL Total Protein 4.8 L (6.2-8.2) g/dL Albumin 2.9 L (3.8-4.9) g/dL Albumin/Globulin Ratio 1.53 L (1.60-3.17) Ratio Microbiology - Last 24 Hours (Table) 12/02/23 18:37 Blood Culture - Preliminary Blood 12/02/23 18:00 Blood Culture - Preliminary Blood
[2023-12-05] MEDS ORDERED: POTASSIUM CHLORIDE ER 20 MEQ TAB.ER PO STA (16:08)
[2023-12-06 06:52] LABS: Mycoplasma IgG Antibody (EIA) 3.89 INDEX (<=0.90); Mycoplasma IgM Antibody 0.24 INDEX (<=0.90)
== END 2023-12-05 16:17 | disposition home or self-care (01) | DRG 177 ==
LOC: EC 14:40 → 4SSUR 19:25 → OBSVTOIN 12-03 12:20 → 4SSUR 12-03 16:19
PROVIDERS: ADMIT Internal Medicine; ATTEND Internal Medicine
DX: U07.1 COVID-19 (principal); J12.82 Pneumonia due to coronavirus disease 2019; J96.01 Acute respiratory failure with hypoxia; E11.42 Type 2 diabetes mellitus with diabetic polyneuropathy; E11.51 Type 2 diabetes mellitus with diabetic peripheral angiopathy without gangrene; I11.9 Hypertensive heart disease without heart failure; E78.2 Mixed hyperlipidemia; M10.9 Gout, unspecified; K21.00 Gastro-esophageal reflux disease with esophagitis, without bleeding; M47.816 Spondylosis without myelopathy or radiculopathy, lumbar region; Z79.82 Long term (current) use of aspirin; Z79.84 Long term (current) use of oral hypoglycemic drugs; Z87.891 Personal history of nicotine dependence; Z79.899 Other long term (current) drug therapy; Z88.0 Allergy status to penicillin
CPT/HCPCS: 36415; 71046; 80053; 81001; 82728; 83605; 83615; 83735; 84145; 84484; 85025; 85610; 85730; 86140; 86738; 87040; 87449; 87636; 93005; 96361; 96365; 96366; 96368; 96375; 99285

== ENCOUNTER → 2023-12-12 | Outpatient (CLI) | payer MEDICARE ==
[2023-12-12 15:00] LABS: Basophils # (A) 0.02 X 10*3/uL (0.00-0.10); Basophils % (A) 0.2 %; Eosinophils # (A) 0 X 10*3/uL (0.04-0.35); Eosinophils % (A) 0 %; HCT 36.9 % (37.2-46.3); HGB 12.5 g/dL (12.0-15.0); Lymphocytes # (A) 1.96 X 10*3/uL (0.90-5.00); Lymphocytes % (A) 21.5 %; MCH 32.3 pg (27.0-32.0); MCHC 33.9 g/dL (32.0-37.0); MCV 95.3 FL (80.0-97.0); Monocytes # (A) 0.91 X 10*3/uL (0.20-1.00); NRBC Per 100 WBC 0 X 10*3/uL (0.00-0.01); Neutrophils # (A) 6.18 X 10*3/uL (1.80-7.70); Neutrophils % (A) 67.9 %; Platelet Count 266 X 10*3/uL (140-440); RBC 3.87 X 10*6/uL (4.10-5.20); WBC 9.11 X 10*3/uL (4.50-10.00)
[2023-12-12 15:38] LABS: ALT 16 U/L (8-44); AST 10 U/L (13-35); Albumin 3.9 g/dL (3.8-4.9); Albumin/Globulin Ratio 1.77 Ratio (1.60-3.17); Alkaline Phosphatase 76 U/L (41-126); BUN/Creat Ratio 33.75 Ratio (12.00-20.00); Calcium 9.5 mg/dL (8.7-10.3); Carbon Dioxide 29.5 mmol/L (21.6-31.8); Chloride 102 mmol/L (96-109); Globulin 2.2 g/dL (1.6-3.3); Glucose 130 mg/dL (70-110); Potassium 3.1 mmol/L (3.5-5.5); Sodium 145 mmol/L (135-145); Total Bilirubin 0.5 mg/dL (0.3-1.2); Total Protein 6.1 g/dL (6.2-8.2)
[2023-12-12 16:33] LABS: Ferritin 64.5 ng/mL (10.0-291.0)
[2023-12-12 17:02] LABS: Erythrocyte Sedimentation Rate 3 mm/Hr (0-30)
== END | disposition home or self-care (01) ==
LOC: LABWHC1 11:32
PROVIDERS: ATTEND Internal Medicine
DX: U07.1 COVID-19 (principal)
CPT/HCPCS: 36415; 80053; 82728; 85025; 85652; 86140

== ENCOUNTER → 2024-01-26 | Outpatient (CLI) | payer MEDICARE ==
--- NOTE | 2024-01-26 13:45 | XR ---
EXAMINATION TYPE: XR sacrum coccyx DATE OF EXAM: 01/26/2024 COMPARISON: CT 02/26/2018 HISTORY: 73-year-old female with tailbone pain after fall, M53.3 TECHNIQUE: 3 views FINDINGS: SI joints appear symmetric and intact. Sclerotic focus left sacrum unchanged from 2018 sugg esting a bone island. No displaced or angulated sacral coccygeal fracture seen. IMPRESSION: No displaced or angulated temporal bone fracture identified radiographically. [facility], , 01/26/2024 1:42 PM
== END | disposition home or self-care (01) ==
LOC: RADXRMAIN 12:14
PROVIDERS: ATTEND Family Medicine
DX: M53.3 Sacrococcygeal disorders, not elsewhere classified (principal)
CPT/HCPCS: 72220

== ENCOUNTER 2024-02-03 08:19 | Day surgery (SDC) | payer MEDICARE ==
[2024-01-27 14:03] VITALS: BMI 21.8
[2024-02-03] MEDS: IV FLUID CONTINUATION 1,000 ML IV ONE (08:40)
[2024-02-03 08:42] VITALS: TEMP 98.6
[2024-02-03] MEDS: LACTATED RINGERS 1,000 ML IV SCH (08:54)
[2024-02-03 08:56] LABS: Glucose,Whole Blood 146 mg/dL (70-110)
[2024-02-03] MEDS: ONDANSETRON 4 MG/2 ML VIAL IVP STA (09:06)
[2024-02-03] MEDS: FAMOTIDINE 20 MG/2 ML VIAL IV STA (09:07)
[2024-02-03] MEDS ORDERED: PROPOFOL 10 MG/ML 20 ML VIAL IV ONE (09:42)
[2024-02-03] MEDS ORDERED: LIDOCAINE 1% INJ 10MG/ML (20 ML MDV) ONE (09:42)
--- NOTE | 2024-02-03 09:46 | P.GSHP ---
History of Present Illness H&P Date: 02/03/24 Chief Complaint: GERD, screening, history of polyps 73-year-old female here for upper and lower endoscopy. Patient with chronic reflux. Has coughing when laying flat at bedtime. No dysphagia. Patient with history of previous colon polyps. Last colonoscopy 3 years ago showed tubular adenoma. Past Medical History Past Medical History: Diabetes Mellitus, GERD/Reflux, Hyperlipidemia, Hypertension Additional Past Medical History / Comment(s): Gastritis History of Any Multi-Drug Resistant Organisms: None Reported Past Surgical History: Appendectomy, Orthopedic Surgery, Tonsillectomy Additional Past Surgical History / Comment(s): right pointer finger surgery, pilonidal cyst removed at 20yrs old; hernia repair R groin- Dr. Peres Past Anesthesia/Blood Transfusion Reactions: Postoperative Nausea & Vomiting (PONV) Additional Past Anesthesia/Blood Transfusion Reaction / Comment(s): no blood transfusion Past Psychological History: No Psychological Hx Reported - Past Family History Mother Family Medical History: Cancer Additional Family Medical History / Comment(s): skin Medications and Allergies Home Medications Medication Instructions Recorded Confirmed Type Atorvastatin [Lipitor] 80 mg PO HS 02/26/18 02/03/24 History Folic Acid 1 mg PO DAILY 02/26/18 02/03/24 History Losartan/Hydrochlorothiazide 1 tab PO DAILY 02/26/18 02/03/24 History [Losartan-Hctz 100-12.5 mg Tab] Omeprazole 40 mg PO DAILY 02/26/18 02/03/24 History allopurinoL [Zyloprim] 100 mg PO DAILY 02/26/18 02/03/24 History atenoloL [Tenormin] 50 mg PO DAILY 02/26/18 02/03/24 History cloNIDine HCL [Catapres] 0.1 mg PO BID 02/26/18 02/03/24 History metFORMIN HCL 500 mg PO BID 02/26/18 02/03/24 History ALPRAZolam [Xanax] 0.25 mg PO DAILY PRN 11/04/23 02/03/24 History Aspirin 81 mg PO DAILY 11/04/23 02/03/24 History Empagliflozin [Jardiance] 10 mg PO DAILY 11/04/23 02/03/24 History Ezetimibe [Zetia] 10 mg PO HS 11/04/23 02/03/24 History Gabapentin 600 mg PO BID 11/04/23 02/03/24 History amLODIPine [Norvasc] 5 mg PO HS 11/04/23 02/03/24 History Famotidine [Pepcid] 20 mg PO HS PRN 12/02/23 02/03/24 History Ascorbic Acid [Vitamin C] 500 mg PO BID tab 12/05/23 02/03/24 Rx Cholecalciferol [Vitamin D3 (25 25 mcg PO DAILY tab 12/05/23 02/03/24 Rx Mcg = 1000 Iu)] Zinc Sulfate [Orazinc] 220 mg PO DAILY cap 12/05/23 02/03/24 Rx Potassium Chloride ER [K-Dur 20] 20 meq PO DAILY 01/27/24 02/03/24 History Allergies Allergy/AdvReac Type Severity Reaction Status Date / Time Penicillins Allergy Unknown Rash/Hives Verified 02/03/24 08:35 clindamycin [From Cleocin] Allergy Rash/Hives Verified 02/03/24 08:35 Surgical - Exam Vital Signs Temp Pulse Resp BP Pulse Ox 98.6 F 73 18 152/80 99 02/03/24 08:34 02/03/24 08:34 02/03/24 08:34 02/03/24 08:34 02/03/24 08:34 Physical exam: General: Well-developed, well-nourished HEENT: Normocephalic, sclerae nonicteric Abdomen: Nontender, nondistended Extremities: No edema Neuro: Alert and oriented Results - Labs Abnormal Lab Results - Last 24 Hours (Table) 02/03/24 Range/Units 08:50 POC Glucose (mg/dL) 146 H (70-110) mg/dL Assessment and Plan (1) History of colon polyps Narrative/Plan: 73-year-old female with history of colon polyps and GERD. Will proceed with upper and lower endoscopy. Current Visit: Yes Status: Acute Code(s): Z86.0100 - PERSONAL HISTORY OF COLON POLYPS, UNSPECIFIED SNOMED Code(s): 542492480
--- NOTE | 2024-02-03 10:06 | P.PCN ---
Date of Procedure: 02/03/24 Procedure(s) Performed: PREOPERATIVE DIAGNOSIS: GERD, history of polyps POSTOPERATIVE DIAGNOSIS: Gastritis, multiple gastric polyps, moderate-sized hiatal hernia, diverticulosis PROCEDURE: 1. EGD with biopsy 2. Colonoscopy ANESTHESIA: MAC SURGEON: Leo Cristobal M.D. SPECIMENS: Antrum, gastric polyps ENDOSCOPIC PROCEDURE: The patient was on the endoscopy table in the left decubitus position. The Olympus gastroscope was inserted into the oropharynx and passed under direct visualization to the region of the third portion of the duodenum. From that point the scope was slowly withdrawn inspecting all surfaces carefully. There were no neoplastic inflammatory or polypoid lesions throughout the duodenum. The pylorus was widely patent. The stomach was carefully inspected. There was mild gastritis present. The patient had multiple polyps throughout the stomach some of which were close to 1 cm in size. The 2 larger polyps were biopsied using the cold biopsy forceps. Retroflexion revealed a moderate-sized hiatal hernia. The esophagus was then carefully examined. There were no neoplastic inflammatory or polypoid lesions throughout the visualized esophagus. The patient was kept on the endoscopy table in the left decubitus position. The Olympus colonoscope was inserted into the anus and passed under direct visualization to the base of the cecum. The appendiceal orifice was visualized. From that point the scope was slowly withdrawn inspecting all surfaces carefully. There were no neoplastic inflammatory or polypoid lesions throughout the cecum, ascending, transverse, descending, sigmoid and rectum. There was mild scattered diverticulosis noted. Digital rectal examination was normal. The patient was taken to the recovery room in stable condition per anesthesia guidelines. RECOMMENDATIONS: Continue antiacid therapy. Await biopsy results. Repeat EGD and colonoscopy 5 years.
[2024-02-03 10:20] VITALS: RESP 16
[2024-02-03 10:39] VITALS: BP 136/65; PULSE 66
[2024-02-03 10:52] LABS: Glucose,Whole Blood 123 mg/dL (70-110)
== END 2024-02-03 11:02 | disposition home or self-care (01) ==
LOC: ORWHC2ENDO 08:19
PROVIDERS: ATTEND Surgery
DX: Z12.11 Encounter for screening for malignant neoplasm of colon (principal); K57.30 Diverticulosis of large intestine without perforation or abscess without bleeding; K29.50 Unspecified chronic gastritis without bleeding; K31.7 Polyp of stomach and duodenum; K21.9 Gastro-esophageal reflux disease without esophagitis; K44.9 Diaphragmatic hernia without obstruction or gangrene; I10 Essential (primary) hypertension; E11.51 Type 2 diabetes mellitus with diabetic peripheral angiopathy without gangrene; E11.40 Type 2 diabetes mellitus with diabetic neuropathy, unspecified; E78.5 Hyperlipidemia, unspecified; M19.90 Unspecified osteoarthritis, unspecified site; M10.9 Gout, unspecified; Z91.89 Other specified personal risk factors, not elsewhere classified; Z79.84 Long term (current) use of oral hypoglycemic drugs; Z79.82 Long term (current) use of aspirin; Z86.0101 Personal history of adenomatous and serrated colon polyps; Z87.19 Personal history of other diseases of the digestive system; Z88.1 Allergy status to other antibiotic agents; Z88.0 Allergy status to penicillin
CPT/HCPCS: 88305; 43239; J2405; J2003; J3490; J2704; G0105; 45378

== ENCOUNTER → 2024-06-01 | Outpatient (CLI) | payer MEDICARE ==
--- NOTE | 2024-06-01 12:51 | XR ---
EXAMINATION TYPE: XR cervical spine comp DATE OF EXAM: 06/01/2024 12:36 PM COMPARISON: None CLINICAL INDICATION: Female, 74 years old with history of M47.814; PHH, pain TECHNIQUE: The cervical spine was imaged in frontal, lateral, odontoid and bilateral oblique. FINDINGS: The osseous structures show normal alignment without evidence of an acute fracture. There are osteoph ytes noted throughout the cervical spine on the anterior and lateral aspects of the vertebral bodies. The intervertebral disk spaces are narrowed at multiple levels. Pedicles are intact. Soft tissues a re within normal limits. The odontoid appears intact. IMPRESSION: 1. No fracture or dislocation. 2. Mild degenerative disc disease changes of the cervical spine. [facility], , 06/01/2024 12:48 PM
== END | disposition home or self-care (01) ==
LOC: RADXRMAIN 12:09
PROVIDERS: ATTEND Internal Medicine
DX: M47.814 Spondylosis without myelopathy or radiculopathy, thoracic region (principal); M50.30 Other cervical disc degeneration, unspecified cervical region
CPT/HCPCS: 72050

== ENCOUNTER 2024-08-15 08:37 | Inpatient (IN) | payer MEDICARE ==
[2024-08-15 09:01] LABS: Appearance,Urine Clear (Clear); Bilirubin,Urine Negative (Negative); Blood,Urine Negative (Negative); Color,Urine Colorless; Glucose,Urine (UA) 4+ (Negative); Ketones,Urine Negative (Negative); Leukocyte Esterase,Urine Negative (Negative); Nitrite,Urine Negative (Negative); Protein,Urine Negative (Negative); Specific Gravity,Urine 1.018 (1.001-1.035); Urobilinogen,Urine <2.0 mg/dL (<2.0)
--- NOTE | 2024-08-15 10:24 | ED ---
General Adult HPI - General Chief complaint: Fever Stated complaint: Fever/Urogenital Time Seen by Provider: 08/15/24 08:50 Source: patient, RN notes reviewed Mode of arrival: ambulatory Limitations: no limitations - History of Present Illness Initial comments: 74-year-old female with history of T2DM, HLD, HTN presenting to the emergency department meant for complaints of fever and overall not feeling well. Patient states that yesterday she was asleep she had left-sided chest pain that that radiated up her mid chest described as a stabbing type sensation. She states that she has had urgency to use the bathroom today as well and has been having difficult time making it to the bathroom quickly however denies dysuria or hematuria. She states that she was "shaking "at home earlier and discovered that she had a fever. She denies cough, rhinorrhea, congestion, abdominal pain. Currently denies chest pain or difficulty in breathing. - Related Data Home Medications Medication Instructions Recorded Confirmed Atorvastatin [Lipitor] 80 mg PO HS 02/26/18 02/03/24 Folic Acid 1 mg PO DAILY 02/26/18 02/03/24 Losartan/Hydrochlorothiazide 1 tab PO DAILY 02/26/18 02/03/24 [Losartan-Hctz 100-12.5 mg Tab] Omeprazole 40 mg PO DAILY 02/26/18 02/03/24 allopurinoL [Zyloprim] 100 mg PO DAILY 02/26/18 02/03/24 atenoloL [Tenormin] 50 mg PO DAILY 02/26/18 02/03/24 cloNIDine HCL [Catapres] 0.1 mg PO BID 02/26/18 02/03/24 metFORMIN HCL 500 mg PO BID 02/26/18 02/03/24 ALPRAZolam [Xanax] 0.25 mg PO DAILY PRN 11/04/23 02/03/24 Aspirin 81 mg PO DAILY 11/04/23 02/03/24 Empagliflozin [Jardiance] 10 mg PO DAILY 11/04/23 02/03/24 Ezetimibe [Zetia] 10 mg PO HS 11/04/23 02/03/24 Gabapentin 600 mg PO BID 11/04/23 02/03/24 amLODIPine [Norvasc] 5 mg PO HS 11/04/23 02/03/24 Famotidine [Pepcid] 20 mg PO HS PRN 10/01/24 12/03/24 Potassium Chloride ER [K-Dur 20] 20 meq PO DAILY 01/27/24 02/03/24 Previous Rx's Medication Instructions Recorded Ascorbic Acid [Vitamin C] 500 mg PO BID tab 12/05/23 Cholecalciferol [Vitamin D3 (25 25 mcg PO DAILY tab 12/05/23 Mcg = 1000 Iu)] Zinc Sulfate [Orazinc] 220 mg PO DAILY cap 12/05/23 Allergies Allergy/AdvReac Type Severity Reaction Status Date / Time Penicillins Allergy Unknown Rash/Hives Verified 08/15/24 08:49 clindamycin [From Cleocin] Allergy Rash/Hives Verified 08/15/24 08:49 Review of Systems ROS Statement: Those systems with pertinent positive or pertinent negative responses have been documented in the HPI. ROS Other: All systems not noted in ROS Statement are negative. Past Medical History Past Medical History: Diabetes Mellitus, GERD/Reflux, Hyperlipidemia, Hypertension Additional Past Medical History / Comment(s): Gastritis History of Any Multi-Drug Resistant Organisms: None Reported Past Surgical History: Appendectomy, Orthopedic Surgery, Tonsillectomy Additional Past Surgical History / Comment(s): right pointer finger surgery, pilonidal cyst removed at 20yrs old; hernia repair R groin- Dr. Peres Past Anesthesia/Blood Transfusion Reactions: Postoperative Nausea & Vomiting (PONV) Additional Past Anesthesia/Blood Transfusion Reaction / Comment(s): no blood transfusion Past Psychological History: No Psychological Hx Reported Smoking Status: Former smoker Past Alcohol Use History: Occasional Past Drug Use History: None Reported - Past Family History Mother Family Medical History: Cancer Additional Family Medical History / Comment(s): skin General Exam Limitations: no limitations General appearance: alert, in no apparent distress Neck exam: Present: normal inspection. Absent: tenderness, meningismus, lymphadenopathy Respiratory exam: Present: normal lung sounds bilaterally, rhonchi (right lung field). Absent: respiratory distress, wheezes, rales, stridor Cardiovascular Exam: Present: regular rate, normal rhythm, normal heart sounds. Absent: systolic murmur, diastolic murmur, rubs, gallop, clicks GI/Abdominal exam: Present: soft, normal bowel sounds. Absent: distended, tenderness, guarding, rebound, rigid Extremities exam: Present: normal inspection, full ROM, normal capillary refill. Absent: tenderness, pedal edema, joint swelling, calf tenderness Back exam: Present: normal inspection Course Vital Signs 08/15/24 08:47 Temperature 101.6 F H Pulse Rate 100 Respiratory 20 Rate Blood Pressure 128/63 O2 Sat by Pulse 99 Oximetry Medical Decision Making - Medical Decision Making Was pt. sent in by a medical professional or institution (, PA, DEPUTY CORONER INVESTIGATOR, urgent care, hospital, or retirement...) When possible be specific @ -No Did you speak to anyone other than the patient for history (EMS, parent, family, police, friend...)? What history was obtained from this source @ -No Did you review nursing and triage notes (agree or disagree)? Why? @ -I reviewed and agree with nursing and triage notes Were old charts reviewed (outside hosp., previous admission, EMS record, old EKG, old radiological studies, urgent care reports/EKG's, retirement records)? Report findings @ -No old charts were reviewed Differential Diagnosis (chest pain, altered mental status, abdominal pain women, abdominal pain men, vaginal bleeding, weakness, fever, dyspnea, syncope, headache, dizziness, GI bleed, back pain, seizure, CVA, palpatations, mental he alth, musculoskeletal)? @ -Differential Fever: Pneumonia, viral URI, endocarditis, myocarditis, pericarditis, otitis, sinusitis, peritonsillar Abscess, retropharyngeal Abscess, epiglottitis, peritonitis, appendicitis, Sera cystitis, diverticulitis, hepatitis, colitis, UTI, PID, TOA, pyelonephritis, prostatitis, epididymitis, meningitis, encephalitis, pulmonary embolism, CVA, thyroid storm, pancreatitis, adrenal crisis, cavernous sinus thrombosis, this is not meant to be an all-inclusive list. EKG interpreted by me (3pts min.). @ -Completed at 1038 sinus rhythm with a ventricular rate of 88, MS interval 144, QRS 82, QT 366, QTc 411. X-rays interpreted by me (1pt min.). @ -Chest x-ray reveals right lower lobe airspace opacities CT interpreted by me (1pt min.). @ -None done U/S interpreted by me (1pt. min.). @ -None done What testing was considered but not performed or refused? (CT, X-rays, U/S, labs)? Why? @ -None What meds were considered but not given or refused? Why? @ -None Did you discuss the management of the patient with other professionals (professionals i.e. , PA, DEPUTY CORONER INVESTIGATOR, lab, RT, psych nurse, social welfare clerk, senior asp net developer, teacher, contract officer, telehealth case manager)? Give summary @ -spoke with Dr. Real for admission, recommends pulmonology consult. Was smoking cessation discussed for >3mins.? @ -No Was critical care preformed (if so, how long)? @ -Performed +35 minutes this patient was started on heparin infusion. Were there social determinants of health that impacted care today? How? (Homelessness, low income, unemployed, alcoholism, drug addiction, transportation, low edu. Level, literacy, decrease access to med. care, long term, r ehab)? @ -No Was there de-escalation of care discussed even if they declined (Discuss DNR or withdrawal of care, Hospice)? DNR status @ -No What co-morbidities impacted this encounter? (DM, HTN, Smoking, COPD, CAD, Cancer, CVA, ARF, Chemo, Hep., AIDS, mental health diagnosis, sleep apnea, morbid obesity)? @ -None Was patient admitted / discharged? Hospital course, mention meds given and route, prescriptions, significant lab abnormalities, going to OR and other pertinent info. @ -Admitted. 74-year-old female presenting to emergency department for complaints of not feeling well with bodyaches. Patient is febrile on arrival with a temperature 101.6. Concern for adventitious lung sounds on auscultation patient will be treated for sepsis criteria with 30 L/cc kilo of LR with 2 L fl uid bolus and provided with IV Rocephin after blood cultures are obtained. She is also provided with Tylenol Motrin for fever. Patient's labs are concerning for an elevated troponin of 0.125 with no EKG changes concerning for an NSTEMI. Urinalysis no signs of infection, viral testing is negative. Chest x-ray is concerning for pneumonia. Patient will be started on low intensity heparin for NSTEMI and continue antibiotics for pneumonia. Consults placed to pulmonology and cardiology. Patient is admitted to Dr. Real. I discussed this case with my attending Dr. Champagne Undiagnosed new problem with uncertain prognosis? @ -No Drug Therapy requiring intensive monitoring for toxicity (Heparin, Nitro, Insulin, Cardizem)? @ -Low intensity heparin infusion Were any procedures done? @ -No Diagnosis/symptom? @ -NSTEMI, pneumonia Acute, or Chronic, or Acute on Chronic? @ -Acute Uncomplicated (without systemic symptoms) or Complicated (systemic symptoms)? @ -Complicated Side effects of treatment? @ -No Exacerbation, Progression, or Severe Exacerbation? @ -No Poses a threat to life or bodily function? How? (Chest pain, [place], NH, pneumonia, PE, COPD, DKA, ARF, appy, cholecystitis, CVA, Diverticulitis, Homicidal, Suicidal, threat to staff... and all critical care pts) @ -Yes, can lead to endorgan system dysfunction and potential . - Lab Data Result diagrams: 08/15/24 10:36 08/15/24 10:36 Lab Results 08/15/24 08/15/24 08/15/24 Range/Units 08:51 10:36 10:36 WBC 7.92 (4.50-10.00) 10*3/uL RBC 4.12 (4.10-5.20) 10*6/uL Hgb 12.4 (12.0-15.0) g/dL Hct 37.2 (37.2-46.3) % MCV 90.3 (80.0-97.0) fL MCH 30.1 (27.0-32.0) pg MCHC 33.3 (32.0-37.0) g/dL Plt Count 214 (140-440) 10*3/uL MPV 11.0 (9.5-12.2) fL Immature Gran % (Auto) 0.4 % Neutrophils % 85.3 % Lymphocytes % 6.4 % Monocytes % 7.1 % Eosinophils % 0.3 % Basophils % 0.5 % Immature Gran # 0.03 (0.00-0.04) 10*3/uL Neutrophils # 6.76 (1.80-7.70) 10*3/uL Lymphocytes # 0.51 L (0.90-5.00) 10*3/uL Monocytes # 0.56 (0.20-1.00) 10*3/uL Eosinophils # 0.02 L (0.04-0.35) 10*3/uL Basophils # 0.04 (0.00-0.10) 10*3/uL Sodium 140 (137-145) mmol/L Potassium 3.4 L (3.5-5.1) mmol/L Chloride 100 (98-107) mmol/L Carbon Dioxide 33 H (22-30) mmol/L Anion Gap 7 mmol/L BUN 20 H (7-17) mg/dL Creatinine 0.74 (0.52-1.04) mg/dL Est GFR (CKD-EPI)AfAm >90 (>60 ml/min/1.73 sqM) Est GFR (CKD-EPI)NonAf 81 (>60 ml/min/1.73 sqM) Glucose 143 H (74-99) mg/dL Calcium 9.4 (8.4-10.2) mg/dL Magnesium 1.5 L (1.6-2.3) mg/dL Total Bilirubin 0.9 (0.2-1.3) mg/dL AST 20 (14-36) U/L ALT 15 (4-34) U/L Alkaline Phosphatase 77 (38-126) U/L Troponin I (0.000-0.034) ng/mL Total Protein 6.5 (6.3-8.2) g/dL Albumin 4.1 (3.5-5.0) g/dL Urine Color Colorless Urine Appearance Clear (Clear) Urine pH 7.0 (5.0-8.0) Ur Specific [place] 1.018 (1.001-1.035) Urine Protein Negative (Negative) Urine Glucose (UA) 4+ H (Negative) Urine Ketones Negative (Negative) Urine Blood Negative (Negative) Urine Nitrite Negative (Negative) Urine Bilirubin Negative (Negative) Urine Urobilinogen <2.0 (<2.0) mg/dL Ur Leukocyte Esterase Negative (Negative) Influenza Type A (PCR) (Not Detectd) Influenza Type B (PCR) (Not Detectd) RSV (PCR) (Not Detectd) SARS-CoV-2 (PCR) (Not Detectd) 08/15/24 08/15/24 Range/Units 10:36 10:36 WBC (4.50-10.00) 10*3/uL RBC (4.10-5.20) 10*6/uL Hgb (12.0-15.0) g/dL Hct (37.2-46.3) % MCV (80.0-97.0) fL MCH (27.0-32.0) pg MCHC (32.0-37.0) g/dL Plt Count (140-440) 10*3/uL MPV (9.5-12.2) fL Immature Gran % (Auto) % Neutrophils % % Lymphocytes % % Monocytes % % Eosinophils % % Basophils % % Immature Gran # (0.00-0.04) 10*3/uL Neutrophils # (1.80-7.70) 10*3/uL Lymphocytes # (0.90-5.00) 10*3/uL Monocytes # (0.20-1.00) 10*3/uL Eosinophils # (0.04-0.35) 10*3/uL Basophils # (0.00-0.10) 10*3/uL Sodium (137-145) mmol/L Potassium (3.5-5.1) mmol/L Chloride (98-107) mmol/L Carbon Dioxide (22-30) mmol/L Anion Gap mmol/L BUN (7-17) mg/dL Creatinine (0.52-1.04) mg/dL Est GFR (CKD-EPI)AfAm (>60 ml/min/1.73 sqM) Est GFR (CKD-EPI)NonAf (>60 ml/min/1.73 sqM) Glucose (74-99) mg/dL Calcium (8.4-10.2) mg/dL Magnesium (1.6-2.3) mg/dL Total Bilirubin (0.2-1.3) mg/dL AST (14-36) U/L ALT (4-34) U/L Alkaline Phosphatase (38-126) U/L Troponin I 0.125 H* (0.000-0.034) ng/mL Total Protein (6.3-8.2) g/dL Albumin (3.5-5.0) g/dL Urine Color Urine Appearance (Clear) Urine pH (5.0-8.0) Ur Specific [place] (1.001-1.035) Urine Protein (Negative) Urine Glucose (UA) (Negative) Urine Ketones (Negative) Urine Blood (Negative) Urine Nitrite (Negative) Urine Bilirubin (Negative) Urine Urobilinogen (<2.0) mg/dL Ur Leukocyte Esterase (Negative) Influenza Type A (PCR) Not Detected (Not Detectd) Influenza Type B (PCR) Not Detected (Not Detectd) RSV (PCR) Not Detected (Not Detectd) SARS-CoV-2 (PCR) Not Detected (Not Detectd) Disposition Clinical Impression: NSTEMI (non-ST elevated myocardial infarction), Pneumonia Disposition: ADMITTED IP TO THIS [facility] Condition: Serious Decision to Admit Reason: Admit from EC Decision Date: 08/15/24 Decision Time: 12:09
[2024-08-15 10:53] LABS: Basophils # (A) 0.04 10*3/uL (0.00-0.10); Basophils % (A) 0.5 %; Eosinophils # (A) 0.02 10*3/uL (0.04-0.35); Eosinophils % (A) 0.3 %; HCT 37.2 % (37.2-46.3); HGB 12.4 g/dL (12.0-15.0); Lymphocytes # (A) 0.51 10*3/uL (0.90-5.00); Lymphocytes % (A) 6.4 %; MCH 30.1 pg (27.0-32.0); MCHC 33.3 g/dL (32.0-37.0); MCV 90.3 fL (80.0-97.0); Monocytes # (A) 0.56 10*3/uL (0.20-1.00); Monocytes % (A) 7.1 %; Neutrophils # (A) 6.76 10*3/uL (1.80-7.70); Neutrophils % (A) 85.3 %; Platelet Count 214 10*3/uL (140-440); RBC 4.12 10*6/uL (4.10-5.20); RDW 15.5 % (11.5-14.5); WBC 7.92 10*3/uL (4.50-10.00)
[2024-08-15 11:06] LABS: ALT 15 U/L (4-34); AST 20 U/L (14-36); African American GFR (CKD) >90 (>60 ml/min/1.73 sqM); Albumin 4.1 g/dL (3.5-5.0); Alkaline Phosphatase 77 U/L (38-126); Anion Gap 7 mmol/L; Blood Urea Nitrogen 20 mg/dL (7-17); Calcium 9.4 mg/dL (8.4-10.2); Carbon Dioxide 33 mmol/L (22-30); Chloride 100 mmol/L (98-107); Glucose 143 mg/dL (74-99); Magnesium 1.5 mg/dL (1.6-2.3); Non-African American GFR(CKD) 81 (>60 ml/min/1.73 sqM); Potassium 3.4 mmol/L (3.5-5.1); Sodium 140 mmol/L (137-145); Total Bilirubin 0.9 mg/dL (0.2-1.3); Total Protein 6.5 g/dL (6.3-8.2)
[2024-08-15] MEDS: ACETAMINOPHEN TAB 500 MG TAB PO STA (11:09)
[2024-08-15] MEDS: IBUPROFEN 600 MG TAB PO STA (11:10)
--- NOTE | 2024-08-15 11:12 | XR ---
EXAMINATION TYPE: XR chest 2V DATE OF EXAM: 08/15/2024 10:47 AM COMPARISON: 12/02/2023 CLINICAL INDICATION: Female, 74 years old with history of fever, weakness; [facility] TECHNIQUE: XR chest 2V Frontal and lateral views of the chest. FINDINGS: Lungs/Pleura: Right lower lobe airspace opacities are again redemonstrated. There is no evidence of p leural effusion, focal consolidation, or pneumothorax. Pulmonary vascularity: Unremarkable. Heart/mediastinum: Cardiomediastinal silhouette is unremarkable. Musculoskeletal: No acute osseous pathology. IMPRESSION: Right lower lobe airspace opacities unclear if these are chronic or new acute infection. [facility], , 08/15/2024 11:10 AM
[2024-08-15 11:29] LABS: Influenza A Not Detected (Not Detectd); Influenza B Not Detected (Not Detectd); RSV Not Detected (Not Detectd)
[2024-08-15] MEDS ORDERED: HEPARIN SODIUM 1,000 UN/ML (10ML VL) IV PRN (12:08)
[2024-08-15] MEDS ORDERED: ACETAMINOPHEN TAB 325 MG TAB PO PRN (12:09)
[2024-08-15] MEDS ORDERED: NALOXONE 0.4 MG/ML 1 ML VIAL IV PRN (12:09)
[2024-08-15] MEDS: LACTATED RINGERS 1,000 ML IV SCH (12:43)
[2024-08-15 12:44] LABS: Prothrombin Time 11.5 sec (10.0-12.5)
[2024-08-15] MEDS: MAGNESIUM OXIDE 400 MG TAB PO STA (13:13)
[2024-08-15 13:15] LABS: Partial Thromboplastin Time 19.1 sec (22.0-30.0)
[2024-08-15] MEDS: HEPARIN SODIUM 1,000 UN/ML (10ML VL) IV ONE (13:46)
[2024-08-15] MEDS: HEPARIN SOD,PORK IN 0.45% NACL 25,000 UNIT in 0.45% NACL 1 250ML.BAG IV SCH (13:46)
[2024-08-15] MEDS ORDERED: FAMOTIDINE 20 MG TAB PO PRN (17:45)
[2024-08-15] MEDS ORDERED: DEXTROSE 50% SYRINGE 50 ML IVP PRN ×2 (17:47)
[2024-08-15] MEDS: INSULIN LISPRO (HumaLOG) 100 UNIT/ML 10 mL VL SQ SCH (20:19)
[2024-08-15 20:20] LABS: Glucose,Whole Blood 136 mg/dL (70-110)
[2024-08-15] MEDS: cloNIDine HCL 0.1 MG TAB PO SCH (20:41)
[2024-08-15] MEDS: GABAPENTIN 300 MG CAP PO SCH (20:42)
[2024-08-15] MEDS: EZETIMIBE 10 MG TAB PO SCH (20:42)
[2024-08-15] MEDS: metFORMIN 500 MG TAB PO SCH (20:42)
[2024-08-15] MEDS: amLODIPine 5 MG TAB PO SCH (20:42)
[2024-08-15] MEDS: MAGNESIUM OXIDE 400 MG TAB PO SCH (20:42)
[2024-08-15] MEDS: ALPRAZolam 0.25 MG TAB PO PRN (21:49)
--- NOTE | 2024-08-16 06:06 | P.CNPUL ---
History of Present Illness Consult date: 08/16/24 Requesting physician: Rhoda Combs Reason for consult: pneumonia Chief complaint: Fever, chest pain, myalgias History of present illness: Patient is a 73-year-old female with past medical history significant for diabetes mellitus, hypertension, hyperlipidemia, GERD, gastritis, anxiety. Her primary care provider is Dr. Real. Of note, patient previously hospitalized December 2023 for COVID-19 and pneumonia. Chest x-ray at that time showed right lower lobe infiltrate concerning for pneumonia and follow-up chest x-ray did show resolution. Presents to the emergency department yesterday morning with a chief complaint of fevers, shaking, myalgias, left-sided chest pain. Workup in the emergency department including a chest x-ray showing a right lower lobe airspace opacity. CBC unremarkable for leukocytosis. CMP: Sodium 140, potassium 3.4, chloride 100, serum bicarb 33, BUN 20, creatinine 0.74, glucose 143. Lactic 1.5. LFTs unremarkable. Troponins were elevated at 0.125, 0.12, and 0.064 respectively. Viral screen negative for influenza A/B, RSV, COVID. EKG: Normal sinus rhythm, rate 88 bpm, with nonspecific T wave abnormalities. Current evaluating this patient in the cardiac stepdown unit. She was previously started on heparin for elevated troponins. Denies any current chest pain. Patient states that her trouble breathing started abruptly the night prior. She was laying in bed had some indigestion and tasted reflux in her mouth. Did abruptly have a coughing fit and developed some shortness of breath with right-sided chest pain. Associated myalgias, shaking and chills followed. Currently, she is on room air. Denies any further shortness of breath. Denies any current coughing, sputum production, hemoptysis. No known sick contacts or recent travel. Has empirically been started on antibiotics. Currently afebrile. Did previously have a temperature with a Tmax of 101.6 F. Nontoxic appearance. Review of Systems Constitutional: Reports chills, Reports fever, Reports sweats, Denies poor appetite, Denies weight gain, Denies weight loss Ears, nose, mouth and throat: Denies dysphagia, Denies nasal congestion, Denies nasal discharge, Denies post-nasal drip, Denies sinus pain, Denies sinus pressure, Denies sore throat, Denies voice changes Cardiovascular: Reports chest pain, Denies leg edema, Denies lightheadedness, Denies orthopnea, Denies palpitations, Denies paroxysmal nocturnal dyspnea, Denies syncope Respiratory: Reports cough, Reports dyspnea, Denies congestion, Denies cough with sputum, Denies hemoptysis, Denies wheezing Gastrointestinal: Reports heartburn, Denies abdominal pain, Denies change in b owel habits, Denies diarrhea, Denies hematemesis, Denies loss of appetite, Denies nausea, Denies vomiting Genitourinary: Denies dysuria Musculoskeletal: Denies limitation of motion Neurological: Denies seizures, Denies syncope Psychiatric: Denies anxiety, Denies depression Past Medical History Past Medical History: Diabetes Mellitus, GERD/Reflux, Hyperlipidemia, Hypertension Additional Past Medical History / Comment(s): Gastritis History of Any Multi-Drug Resistant Organisms: None Reported Past Surgical History: Appendectomy, Orthopedic Surgery, Tonsillectomy Additional Past Surgical History / Comment(s): right pointer finger surgery, pilonidal cyst removed at 20yrs old; hernia repair R groin- Dr. Peres Past Anesthesia/Blood Transfusion Reactions: Postoperative Nausea & Vomiting (PONV) Additional Past Anesthesia/Blood Transfusion Reaction / Comment(s): no blood transfusion Past Psychological History: No Psychological Hx Reported Smoking Status: Former smoker Past Alcohol Use History: Occasional Past Drug Use History: None Reported - Past Family History Mother Family Medical History: Cancer Additional Family Medical History / Comment(s): skin Medications and Allergies Home Medications Medication Instructions Recorded Confirmed Type Atorvastatin [Lipitor] 80 mg PO DAILY 02/26/18 08/15/24 History Folic Acid 1 mg PO DAILY 02/26/18 08/15/24 History Losartan/Hydrochlorothiazide 1 tab PO DAILY 02/26/18 08/15/24 History [Losartan-Hctz 100-12.5 mg Tab] Omeprazole 40 mg PO DAILY 02/26/18 08/15/24 History allopurinoL [Zyloprim] 100 mg PO DAILY 02/26/18 08/15/24 History atenoloL [Tenormin] 50 mg PO DAILY 02/26/18 08/15/24 History cloNIDine HCL [Catapres] 0.1 mg PO BID 02/26/18 08/15/24 History metFORMIN HCL 500 mg PO BID 02/26/18 08/15/24 History Aspirin 81 mg PO DAILY 11/04/23 08/15/24 History Ezetimibe [Zetia] 10 mg PO HS 11/04/23 08/15/24 History Gabapentin 600 mg PO BID 11/04/23 08/15/24 History amLODIPine [Norvasc] 5 mg PO HS 11/04/23 08/15/24 History Famotidine [Pepcid] 20 mg PO HS PRN 12/02/23 08/15/24 History Cholecalciferol [Vitamin D3 (25 25 mcg PO DAILY tab 12/05/23 08/15/24 Rx Mcg = 1000 Iu)] Dapagliflozin Propanediol [Farxiga] 10 mg PO DAILY 08/15/24 08/15/24 History Magnesium Oxide [Mag-Ox] 400 mg PO BID 08/15/24 08/15/24 History Allergies Allergy/AdvReac Type Severity Reaction Status Date / Time Penicillins Allergy Unknown Rash/Hives Verified 08/15/24 08:49 clindamycin [From Cleocin] Allergy Rash/Hives Verified 08/15/24 08:49 Physical Exam Vitals: Vital Signs Temp Pulse Pulse Resp BP BP Pulse Ox 08/15/24 23:29 98.0 F 70 18 95/59 95 08/15/24 20:00 98.2 F 78 18 130/72 95 08/15/24 16:00 98.2 F 72 16 102/66 97 08/15/24 15:42 16 08/15/24 15:37 76 16 101/60 97 08/15/24 13:07 98.8 F 79 18 110/65 97 08/15/24 08:47 101.6 F H 100 20 128/63 99 Intake and Output 08/15/24 08/15/24 08/16/24 14:59 22:59 06:59 Intake Total 440 Balance 440 Intake: Oral 440 Other: Voiding Method Toilet Weight 58.967 kg GENERAL EXAM: Alert, 74-year-old female, on room air, comfortable in no apparent distress. HEAD: Normocephalic and atraumatic EYES: Normal reaction of pupils, equal size. NOSE: Clear with pink turbinates. THROAT: No erythema or exudates. NECK: No masses, no JVD. CHEST: No chest wall deformity. LUNGS: Equal air entry with inspiratory crackles heard at the right base. No wheezes, rhonchi, focal dullness. On room air.. No conversational dyspnea or accessory muscle use.. CVS: S1 and S2 normal with no audible murmur, regular rhythm. No extra heart sounds ABDOMEN: No hepatosplenomegaly, active bowel sounds, no guarding or rigidity. SPINE: No scoliosis or deformity SKIN: No rashes CENTRAL NERVOUS SYSTEM: No focal deficits, tone is normal in all 4 extremities. EXTREMITIES: There is no peripheral edema, clubbing, or cyanosis. Peripheral pulses are intact. Results - Laboratory Findings CBC and BMP: 08/15/24 10:36 08/15/24 10:36 PT/INR, D-dimer PT 11.5 sec (10.0-12.5) 08/15/24 12:03 INR 1.0 (<1.2) 08/15/24 12:03 Abnormal lab findings: Abnormal Labs 08/15/24 08/15/24 08/15/24 08:51 10:36 10:36 Lymphocytes # 0.51 L Eosinophils # 0.02 L APTT Potassium 3.4 L Carbon Dioxide 33 H BUN 20 H Glucose 143 H POC Glucose (mg/dL) Magnesium 1.5 L Troponin I Urine Glucose (UA) 4+ H 08/15/24 08/15/24 08/15/24 10:36 12:03 14:46 Lymphocytes # Eosinophils # APTT 19.1 L Potassium Carbon Dioxide BUN Glucose POC Glucose (mg/dL) Magnesium Troponin I 0.125 H* 0.120 H* Urine Glucose (UA) 08/15/24 08/15/24 08/15/24 19:37 19:37 20:19 Lymphocytes # Eosinophils # APTT 67.7 H Potassium Carbon Dioxide BUN Glucose POC Glucose (mg/dL) 136 H Magnesium Troponin I 0.064 H* Urine Glucose (UA) - Diagnostic Findings Chest x-ray: image reviewed Assessment and Plan Assessment: Right lower lobe community-acquired pneumonia Acute dyspnea, secondary to above Elevated troponins, previously started on IV heparin per protocol Gastroesophageal reflux disease History of moderate-sized hiatal hernia History of gastritis Hypokalemia History of COVID-19 pneumonia, December 2023 Hypertension History of hyperlipidemia Diabetes mellitus type 2 History of diabetic neuropathy Plan: Currently on room air Chest x-ray remarkable for right lower lobe opacity new from previous chest x- ray on 12/17/2023 Aspiration is not excluded Previously started on Rocephin Continue Protonix and Pepcid Elevated troponins, trending down Continues on IV heparin, which is being managed by cardiology Monitor and replace electrolytes per protocol We will continue to follow, additional recommendations forthcoming. I have personally seen and examined the patient, performed the documentation and the assessment and plan as written. Number of minutes spent on the visit:20 Time with Patient: Greater than 30
[2024-08-16 06:23] LABS: Glucose,Whole Blood 126 mg/dL (70-110)
[2024-08-16 06:58] LABS: Basophils # (A) 0.06 10*3/uL (0.00-0.10); Basophils % (A) 0.5 %; Eosinophils # (A) 0.24 10*3/uL (0.04-0.35); HCT 29.9 % (37.2-46.3); Lymphocytes # (A) 2.01 10*3/uL (0.90-5.00); Lymphocytes % (A) 16.8 %; MCH 30.4 pg (27.0-32.0); MCHC 33.4 g/dL (32.0-37.0); MCV 90.9 fL (80.0-97.0); Mean Platelet Volume 11.7 fL (9.5-12.2); Monocytes # (A) 0.69 10*3/uL (0.20-1.00); Monocytes % (A) 5.8 %; Neutrophils # (A) 8.94 10*3/uL (1.80-7.70); Neutrophils % (A) 74.6 %; Platelet Count 184 10*3/uL (140-440); RBC 3.29 10*6/uL (4.10-5.20); RDW 15.9 % (11.5-14.5); WBC 11.98 10*3/uL (4.50-10.00)
[2024-08-16 07:09] LABS: Partial Thromboplastin Time 51.9 sec (22.0-30.0); Prothrombin Time 11.4 sec (10.0-12.5)
[2024-08-16] MEDS: DAPAGLIFLOZIN PROPANEDIOL 10 MG TABLET PO SCH (08:52)
[2024-08-16] MEDS: CHOLECALCIFEROL 25 MCG (1000 IU) TABLET PO SCH (08:52)
[2024-08-16] MEDS: ASPIRIN 81 MG PO SCH (08:52)
[2024-08-16] MEDS: allopurinoL 100 MG TAB PO SCH (08:52)
[2024-08-16] MEDS: FOLIC ACID 1 MG TAB PO SCH (08:52)
[2024-08-16] MEDS: ATORVASTATIN 80 MG TAB PO SCH (08:52)
[2024-08-16] MEDS: hydroCHLOROthiazide 12.5 MG CAP PO SCH (08:53)
[2024-08-16] MEDS: LOSARTAN 50 MG TAB PO SCH (08:53)
[2024-08-16] MEDS: atenoloL 50 MG TAB PO SCH (08:53)
[2024-08-16] MEDS: HEPARIN SODIUM,PORCINE 5,000 UNIT/ML 1 ML VIAL SQ SCH (08:54)
[2024-08-16] MEDS: PANTOPRAZOLE 40 MG TABLET PO SCH (08:56)
[2024-08-16] MEDS ORDERED: NON FORMULARY DRUG (Losartan/Hydrochlorothiazide [Losartan-Hctz 100-12.5 Mg Tab] 1 EACH Ta PO SCH (09:00)
--- NOTE | 2024-08-16 09:51 | P.HPIM ---
History of Present Illness H&P Date: 08/15/24 Chief Complaint: Right lower lobe pneumonia/type 2 [place] HISTORY OF PRESENT ILLNESS: This is a 74-year-old female with a previous medical history significant for hypertension and hypertensive cardiovascular disease, hyperlipidemia, diabetes mellitus type 2, with diabetic polyneuropathy, history of gastroesophageal flux disease, patient presented to the emergency department at [facility] yesterday with urinary frequency, along with increased shortness of breath, minimal cough, no phlegm production, was evaluated emergency department, had a viral swab that was negative, she ended up having a chest x-ray that showed right lobe pneumonia not sure whether an acute over chronic , surprisingly she was having elevated troponin she was started on heparin drip, was admitted to the hospital for right lower lobe pneumonia along with type II [place] likely related to pneumonia with sepsis, patient was started on IV antibiotic in the form of ceftriaxone 2 g piggyback every 24 hours, Zithromax 500 mg orally once every day, pulmonary consultation as well as cardiology consultation was obtained REVIEW OF SYSTEMS: Constitutional: fever, no chills, no night sweats. No weight change. Positive for weakness, fatigue or lethargy. No daytime sleepiness. EENT: No headache. No blurred vision or double vision, no loss of vision. No loss of Hearing, no ringing in the ears, no dizziness. No nasal drainage or congestion. No epistaxis. No sore throat. Lungs: Positive for shortness of breath, positive for cough, no sputum production. No wheezing. Reports dyspnea with activity. Cardiovascular: No chest pain, no lower extremity edema. No palpitations. No paroxysmal nocturnal dyspnea. No orthopnea. No lightheadedness or dizziness. No syncopal episodes. Abdominal: Reports no abdominal pain. No nausea, vomiting. No diarrhea. No constipation. No bloody or tarry stools reports loss of appetite. Genitourinary: No dysuria, increased frequency, urgency. No urinary retention, urinary incontinence Musculoskeletal: No myalgias. No muscle weakness, no gait dysfunction, no frequent falls. No back pain. No neck pain. Integumentary: No wounds, no lesions. No rash or pruritus. No unusual bruising. No change in hair or nails. Neurologic: No aphasia. No facial droop. No change in mentation. No head injury. No headache. No paralysis. positive for neuropathy in both feet.. Psychiatric: No depression. No anxiety. No mood swings. Endocrine: No abnormal blood sugars. No weight change. PAST MEDICAL HISTORY: Hypertension and hypertensive cardiovascular disease. Mixed hyperlipidemia. Diabetes mellitus type 2. Diabetic polyneuropathy. GERD with esophagitis. Spondylosis of the lumbar spine. Osteoarthritis. Gout. Anxiety PAST SURGICAL HISTORY: Tonsillectomy and adenoidectomy. Right inguinal hernia repair. Pilonidal cyst removed. Right index finger surgery. Colonoscopy and EGD. 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 HEENT: Head is atraumatic, normocephalic, pupils were equal round reactive to light and recommendation, extraocular muscle movement were intact, sclera nonicteric, conjunctivae were pale, mucous membranes of the mouth are somewhat dry. Neck: Supple, no JVP, normal carotid upstroke bilaterally, no lymphadenopathy. Chest: Decreased breath sounds at the bases, few rhonchi, no expiratory wheezes, no chest wall tenderness, no intercostal retractions. Positive for egophony in the right lower lobe Heart: First heart sound is normal, second heart sound is normal there is systolic ejection murmur 2 over cystic in the left sternal border. Abdomen: Soft, nontender, nondistended, positive bowel sounds. Extremities: There is no edema no calf tenderness DP +1 bilaterally. Neurologic examination: Patient is awake alert and oriented x3, cranial nerves II-12 appear grossly intact, muscle power were 5 out of 5 in upper extremities and 5 out of 5 in bilateral lower extremities, deep tendon reflexes normal bilaterally. ASSESSMENT AND PLAN: 1. Right lower lobe community-acquired pneumonia continue patient Rocephin 1 g IV piggyback every 24 hours, start the patient on Zithromax 500 mg orally once every day, sputum culture, urine Legionella antigen, mycoplasma antibody IgG and IgM, pulmonary consultation, follow-up with the patient very closely 2. Type II [place] likely related to pneumonia with sepsis. Continue IV heparin for the next 24 hours, then transition the patient to subcu heparin 5000 units subcutaneous every 12 hours. Cardiology consultation will be obtained. 3. Hypertension and hypertensive cardiovascular disease. Continue patient on losartan 100/12.5 mg orally once every day, continue atenolol 50 mg orally once every day, continue amlodipine 5 mg once every day as well as clonidine 0.1 mg orally twice every day 4. Mixed hyperlipidemia. Continue patient on atorvastatin 80 mg once every day, Zetia 10 mg once every day, monitor lipid panel, keep LDL 55-70. 5. Diabetes mellitus type 2. Continue patient on metformin 500 mg orally twice every day, continue Farxiga 5 mg orally once every day, started the patient on sliding scale insulin. 6. History of gout. Continue allopurinol 100 mg orally once every day. 7. GERD with esophagitis. Continue famotidine 20 mg at bedtime, pantoprazole 40 mg orally once every day. 8. Spondylosis of the lumbar spine continue current pain management with gabapentin 600 mg orally twice every day continue Tylenol as needed 9. Diabetic polyneuropathy. Continue gabapentin 600 mg orally twice every day, monitor the patient symptoms very closely. 10. History of PAD. Stable at this time, patient is up-to-date on her arterial Doppler of both lower extremities. 11. DVT prophylaxis. Continue heparin drip for now, will transition into heparin subcu in the next 24 hours 12. GI prophylaxis. Continue PPI, continue famotidine 20 mg once every day. 13. Admit to inpatient. Estimated length of stay 2 midnights 14. Patient is full code. Past Medical History Past Medical History: Diabetes Mellitus, GERD/Reflux, Hyperlipidemia, Hypertension Additional Past Medical History / Comment(s): Gastritis History of Any Multi-Drug Resistant Organisms: None Reported Past Surgical History: Appendectomy, Orthopedic Surgery, Tonsillectomy Additional Past Surgical History / Comment(s): right pointer finger surgery, pilonidal cyst removed at 20yrs old; hernia repair R groin- Dr. Peres Past Anesthesia/Blood Transfusion Reactions: Postoperative Nausea & Vomiting (PONV) Additional Past Anesthesia/Blood Transfusion Reaction / Comment(s): no blood transfusion Past Psychological History: No Psychological Hx Reported Smoking Status: Former smoker Past Alcohol Use History: Occasional Past Drug Use History: None Reported - Past Family History Mother Family Medical History: Cancer Additional Family Medical History / Comment(s): skin Medications and Allergies Home Medications Medication Instructions Recorded Confirmed Type Atorvastatin [Lipitor] 80 mg PO DAILY 02/26/18 08/15/24 History Folic Acid 1 mg PO DAILY 02/26/18 08/15/24 History Losartan/Hydrochlorothiazide 1 tab PO DAILY 02/26/18 08/15/24 History [Losartan-Hctz 100-12.5 mg Tab] Omeprazole 40 mg PO DAILY 02/26/18 08/15/24 History allopurinoL [Zyloprim] 100 mg PO DAILY 02/26/18 08/15/24 History atenoloL [Tenormin] 50 mg PO DAILY 02/26/18 08/15/24 History cloNIDine HCL [Catapres] 0.1 mg PO BID 02/26/18 08/15/24 History metFORMIN HCL 500 mg PO BID 02/26/18 08/15/24 History Aspirin 81 mg PO DAILY 11/04/23 08/15/24 History Ezetimibe [Zetia] 10 mg PO HS 11/04/23 08/15/24 History Gabapentin 600 mg PO BID 11/04/23 08/15/24 History amLODIPine [Norvasc] 5 mg PO HS 11/04/23 08/15/24 History Famotidine [Pepcid] 20 mg PO HS PRN 12/02/23 08/15/24 History Cholecalciferol [Vitamin D3 (25 25 mcg PO DAILY tab 12/05/23 08/15/24 Rx Mcg = 1000 Iu)] Dapagliflozin Propanediol [Farxiga] 10 mg PO DAILY 08/15/24 08/15/24 History Magnesium Oxide [Mag-Ox] 400 mg PO BID 08/15/24 08/15/24 History Allergies Allergy/AdvReac Type Severity Reaction Status Date / Time Penicillins Allergy Unknown Rash/Hives Verified 08/15/24 08:49 clindamycin [From Cleocin] Allergy Rash/Hives Verified 08/15/24 08:49 Physical Exam Vitals: Vital Signs Temp Pulse Pulse Resp BP BP BP 08/16/24 08:48 98.1 F 86 17 110/70 08/16/24 04:00 98.2 F 71 18 110/65 08/16/24 02:00 18 08/15/24 23:29 98.0 F 70 18 95/59 08/15/24 20:00 98.2 F 78 18 130/72 08/15/24 16:00 98.2 F 72 16 102/66 08/15/24 15:42 16 08/15/24 15:37 76 16 101/60 08/15/24 13:07 98.8 F 79 18 110/65 Pulse Ox 08/16/24 08:48 98 08/16/24 04:00 94 L 08/16/24 02:00 08/15/24 23:29 95 08/15/24 20:00 95 08/15/24 16:00 97 08/15/24 15:42 08/15/24 15:37 97 08/15/24 13:07 97 Intake and Output 08/15/24 08/16/24 08/16/24 22:59 06:59 14:59 Intake Total 440 255.27 Balance 440 255.27 Intake: Intake, IV Titration 135.27 Amount Heparin Sod,Pork in 0.45% 135.27 NaCl 25,000 unit In 0.45 % NaCl 1 250ml.bag @ 12 UNITS/KG/HR 7.076 mls/hr IV .Q24H [facility] Rx#: [id number] Oral 440 120 Other: Voiding Method Toilet Toilet # Voids 1 Weight 61.9 kg Results CBC & Chem 7: 08/16/24 05:49 08/15/24 10:36 Labs: Abnormal Lab Results - Last 24 Hours (Table) 08/15/24 08/15/24 08/15/24 Range/Units 10:36 10:36 10:36 WBC (4.50-10.00) 10*3/uL RBC (4.10-5.20) 10*6/uL Hgb (12.0-15.0) g/dL Hct (37.2-46.3) % Neutrophils # (1.80-7.70) 10*3/uL Lymphocytes # 0.51 L (0.90-5.00) 10*3/uL Eosinophils # 0.02 L (0.04-0.35) 10*3/uL APTT (22.0-30.0) sec Potassium 3.4 L (3.5-5.1) mmol/L Carbon Dioxide 33 H (22-30) mmol/L BUN 20 H (7-17) mg/dL Glucose 143 H (74-99) mg/dL POC Glucose (mg/dL) (70-110) mg/dL Hemoglobin A1c (<=6.0) % Magnesium 1.5 L (1.6-2.3) mg/dL Troponin I 0.125 H* (0.000-0.034) ng/mL 08/15/24 08/15/24 08/15/24 Range/Units 10:36 12:03 14:46 WBC (4.50-10.00) 10*3/uL RBC (4.10-5.20) 10*6/uL Hgb (12.0-15.0) g/dL Hct (37.2-46.3) % Neutrophils # (1.80-7.70) 10*3/uL Lymphocytes # (0.90-5.00) 10*3/uL Eosinophils # (0.04-0.35) 10*3/uL APTT 19.1 L (22.0-30.0) sec Potassium (3.5-5.1) mmol/L Carbon Dioxide (22-30) mmol/L BUN (7-17) mg/dL Glucose (74-99) mg/dL POC Glucose (mg/dL) (70-110) mg/dL Hemoglobin A1c 6.9 H (<=6.0) % Magnesium (1.6-2.3) mg/dL Troponin I 0.120 H* (0.000-0.034) ng/mL 08/15/24 08/15/24 08/15/24 Range/Units 19:37 19:37 20:19 WBC (4.50-10.00) 10*3/uL RBC (4.10-5.20) 10*6/uL Hgb (12.0-15.0) g/dL Hct (37.2-46.3) % Neutrophils # (1.80-7.70) 10*3/uL Lymphocytes # (0.90-5.00) 10*3/uL Eosinophils # (0.04-0.35) 10*3/uL APTT 67.7 H (22.0-30.0) sec Potassium (3.5-5.1) mmol/L Carbon Dioxide (22-30) mmol/L BUN (7-17) mg/dL Glucose (74-99) mg/dL POC Glucose (mg/dL) 136 H (70-110) mg/dL Hemoglobin A1c (<=6.0) % Magnesium (1.6-2.3) mg/dL Troponin I 0.064 H* (0.000-0.034) ng/mL 08/16/24 08/16/24 08/16/24 Range/Units 05:45 05:49 06:22 WBC 11.98 H (4.50-10.00) 10*3/uL RBC 3.29 L (4.10-5.20) 10*6/uL Hgb 10.0 L D (12.0-15.0) g/dL Hct 29.9 L (37.2-46.3) % Neutrophils # 8.94 H (1.80-7.70) 10*3/uL Lymphocytes # (0.90-5.00) 10*3/uL Eosinophils # (0.04-0.35) 10*3/uL APTT 51.9 H (22.0-30.0) sec Potassium (3.5-5.1) mmol/L Carbon Dioxide (22-30) mmol/L BUN (7-17) mg/dL Glucose (74-99) mg/dL POC Glucose (mg/dL) 126 H (70-110) mg/dL Hemoglobin A1c (<=6.0) % Magnesium (1.6-2.3) mg/dL Troponin I (0.000-0.034) ng/mL Thrombosis Risk Factor Assmnt - Choose All That Apply Each Risk Factor Represents 2 Points: Age 61-74 years Other congenital or acquired thrombophilia - If yes, enter type in comment: No Thrombosis Risk Factor Assessment Total Risk Factor Score: 2 Thrombosis Risk Factor Assessment Level: Low Risk
--- NOTE | 2024-08-16 09:58 | P.CRDCN ---
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 She has a past medical history of hypertension, hyperlipidemia, diabetes mellitus type 2. We have been asked to evaluate the patient for NSTEMI. Patient gives history that she came into the hospital due to fever, rigors, generalized muscle aches. She also had some left-sided chest pain that was a stabbing type sensation. She has been diagnosed with right lower lobe pneumonia and started on IV antibiotics. Blood pressure 110/70, heart rate 86, pulse ox 98% on room air. Patient has been started on a heparin drip potassium will be replaced. -EKG: Sinus rhythm with no acute ST-T wave changes. -Chest x-ray: Right lower lobe airspace opacities unclear if chronic or new acute infection. -Laboratory studies: WBC 11.9, hemoglobin 10, sodium 140, potassium 3.5, BUN 20 creatinine 0.74. Troponin 0.125, 0.12, 0.064. Cepheid viral panel not detected. Urinalysis negative. -Home cardiac medications: Amlodipine 5 mg at bedtime, aspirin 81 mg daily, atenolol 50 mg daily, atorvastatin 80 mg daily, clonidine 0.1 mg twice daily, Farxiga 10 mg daily, Zetia 10 mg at bedtime, losartan hydrochlorothiazide 100-12 .5 mg 1 daily, magnesium oxide 400 mg twice daily. - Review Of Systems: At the time of my exam: CONSTITUTIONAL: Reports rigors, fever, chills. HEENT: Denies blurred vision, vision changes, or eye pain. Denies hemoptysis CARDIOVASCULAR: Denies chest pain. Denies orthopnea. Denies PND. Denies palpit ations RESPIRATORY: Denies shortness of breath. GASTROINTESTINAL: Denies abdominal pain. Denies nausea or vomiting. HEMATOLOGIC: Denies bleeding disorders. GENITOURINARY: Denies any blood in urine. SKIN: Denies puritis. Denies rash. Physical examination: Gen: This is 74-year-old female in no acute distress VS: reviewed HEENT: Head is atraumatic, normocephalic. Pupils equal, round. Sclerae is a nicteric. NECK: Supple. No JVD. LUNGS: Crackles in the right base. No intercostal retractions. HEART: Regular rate and rhythm. No murmur. ABDOMEN: Soft No tenderness. EXTREMITIES: No pedal edema. No calf tenderness. NEUROLOGICAL: Patient is awake, alert and oriented x3. Assessment: Right lower lobe pneumonia and sepsis Elevated troponins possibly related to pneumonia and sepsis Hypertension Hyperlipidemia Diabetes mellitus type 2 Anemia but appears to be dilutional Plan: Resume patient's home cardiac medications Discontinue heparin drip Obtain 2-D echocardiogram and Doppler study to assess cardiac structure and function Plan will be for patient to follow-up with Dr. Hamilton as an outpatient to have stress test performed once pneumonia has cleared Further recommendations to follow based upon clinical course Thank you kindly for this consultation. Nurse practitioner note has been reviewed, I agree with documented findings and plan of care. Patient was seen and examined. Past Medical History Past Medical History: Diabetes Mellitus, GERD/Reflux, Hyperlipidemia, Hypertension Additional Past Medical History / Comment(s): Gastritis History of Any Multi-Drug Resistant Organisms: None Reported Past Surgical History: Appendectomy, Orthopedic Surgery, Tonsillectomy Additional Past Surgical History / Comment(s): right pointer finger surgery, pilonidal cyst removed at 20yrs old; hernia repair R groin- Dr. Peres Past Anesthesia/Blood Transfusion Reactions: Postoperative Nausea & Vomiting (PONV) Additional Past Anesthesia/Blood Transfusion Reaction / Comment(s): no blood transfusion Past Psychological History: No Psychological Hx Reported Smoking Status: Former smoker Past Alcohol Use History: Occasional Past Drug Use History: None Reported - Past Family History Mother Family Medical History: Cancer Additional Family Medical History / Comment(s): skin Medications and Allergies Home Medications Medication Instructions Recorded Confirmed Type Atorvastatin [Lipitor] 80 mg PO DAILY 02/26/18 08/15/24 History Folic Acid 1 mg PO DAILY 02/26/18 08/15/24 History Losartan/Hydrochlorothiazide 1 tab PO DAILY 02/26/18 08/15/24 History [Losartan-Hctz 100-12.5 mg Tab] Omeprazole 40 mg PO DAILY 02/26/18 08/15/24 History allopurinoL [Zyloprim] 100 mg PO DAILY 02/26/18 08/15/24 History atenoloL [Tenormin] 50 mg PO DAILY 02/26/18 08/15/24 History cloNIDine HCL [Catapres] 0.1 mg PO BID 02/26/18 08/15/24 History metFORMIN HCL 500 mg PO BID 02/26/18 08/15/24 History Aspirin 81 mg PO DAILY 11/04/23 08/15/24 History Ezetimibe [Zetia] 10 mg PO HS 11/04/23 08/15/24 History Gabapentin 600 mg PO BID 11/04/23 08/15/24 History amLODIPine [Norvasc] 5 mg PO HS 11/04/23 08/15/24 History Famotidine [Pepcid] 20 mg PO HS PRN 12/02/23 08/15/24 History Cholecalciferol [Vitamin D3 (25 25 mcg PO DAILY tab 12/05/23 08/15/24 Rx Mcg = 1000 Iu)] Dapagliflozin Propanediol [Farxiga] 10 mg PO DAILY 08/15/24 08/15/24 History Magnesium Oxide [Mag-Ox] 400 mg PO BID 08/15/24 08/15/24 History Allergies Allergy/AdvReac Type Severity Reaction Status Date / Time Penicillins Allergy Unknown Rash/Hives Verified 08/15/24 08:49 clindamycin [From Cleocin] Allergy Rash/Hives Verified 08/15/24 08:49 Physical Exam Vitals: Vital Signs Temp Pulse Pulse Resp BP BP BP 08/16/24 04:00 98.2 F 71 18 110/65 08/16/24 02:00 18 08/15/24 23:29 98.0 F 70 18 95/59 08/15/24 20:00 98.2 F 78 18 130/72 08/15/24 16:00 98.2 F 72 16 102/66 08/15/24 15:42 16 08/15/24 15:37 76 16 101/60 08/15/24 13:07 98.8 F 79 18 110/65 08/15/24 08:47 101.6 F H 100 20 128/63 Pulse Ox 08/16/24 04:00 94 L 08/16/24 02:00 08/15/24 23:29 95 08/15/24 20:00 95 08/15/24 16:00 97 08/15/24 15:42 08/15/24 15:37 97 08/15/24 13:07 97 08/15/24 08:47 99 Intake and Output 08/15/24 08/16/24 08/16/24 22:59 06:59 14:59 Intake Total 440 Balance 440 Intake: Oral 440 Other: Voiding Method Toilet Toilet # Voids 1 Weight 61.9 kg Results 08/16/24 05:49 08/15/24 10:36 Cardiac Enzymes 08/15/24 08/15/24 08/15/24 Range/Units 10:36 10:36 14:46 AST 20 (14-36) U/L Troponin I 0.125 H* 0.120 H* (0.000-0.034) ng/mL 08/15/24 Range/Units 19:37 AST (14-36) U/L Troponin I 0.064 H* (0.000-0.034) ng/mL Coagulation 08/15/24 08/15/24 08/16/24 Range/Units 12:03 19:37 05:45 PT 11.5 11.4 (10.0-12.5) sec APTT 19.1 L 67.7 H 51.9 H (22.0-30.0) sec CBC 08/15/24 08/16/24 Range/Units 10:36 05:49 WBC 7.92 11.98 H (4.50-10.00) 10*3/uL RBC 4.12 3.29 L (4.10-5.20) 10*6/uL Hgb 12.4 10.0 L D (12.0-15.0) g/dL Hct 37.2 29.9 L (37.2-46.3) % Plt Count 214 184 (140-440) 10*3/uL Comprehensive Metabolic Panel 08/15/24 Range/Units 10:36 Sodium 140 (137-145) mmol/L Potassium 3.4 L (3.5-5.1) mmol/L Chloride 100 (98-107) mmol/L Carbon Dioxide 33 H (22-30) mmol/L BUN 20 H (7-17) mg/dL Creatinine 0.74 (0.52-1.04) mg/dL Glucose 143 H (74-99) mg/dL Calcium 9.4 (8.4-10.2) mg/dL AST 20 (14-36) U/L ALT 15 (4-34) U/L Alkaline Phosphatase 77 (38-126) U/L Total Protein 6.5 (6.3-8.2) g/dL Albumin 4.1 (3.5-5.0) g/dL Current Medications Generic Name Dose Route Start Last Admin Trade Name Freq PRN Reason Stop Dose Admin Acetaminophen 650 mg 08/15/24 12:09 Acetaminophen Tab 325 Mg Tab PO Q6HR PRN Mild Pain or Fever > 100.5 Allopurinol 100 mg 08/16/24 09:00 Allopurinol 100 Mg Tab PO DAILY [facility] Alprazolam 0.25 mg 08/15/24 21:41 08/15/24 21:49 Alprazolam 0.25 Mg Tab PO 0.25 mg DAILY PRN Administration Anxiety Amlodipine Besylate 5 mg 08/15/24 21:00 08/15/24 20:42 Amlodipine 5 Mg Tab PO 5 mg HS [facility] Administration Aspirin 81 mg 08/16/24 09:00 Aspirin 81 Mg PO DAILY [facility] Atenolol 50 mg 08/16/24 09:00 Atenolol 50 Mg Tab PO DAILY [facility] Atorvastatin Calcium 80 mg 08/16/24 09:00 Atorvastatin 80 Mg Tab PO DAILY [facility] Cholecalciferol 25 mcg 08/16/24 09:00 Cholecalciferol 25 Mcg (1000 Iu) Tablet PO DAILY [facility] Clonidine 0.1 mg 08/15/24 21:00 08/15/24 20:41 Clonidine Hcl 0.1 Mg Tab PO 0.1 mg BID [facility]ER Administration Dapagliflozin 10 mg 08/16/24 09:00 Dapagliflozin Propanediol 10 Mg Tablet PO DAILY [facility] Dextrose/Water 25 ml 08/15/24 17:47 Dextrose 50% Syringe 50 Ml IVP PER PROTOCOL PRN Hypoglycemia Protocol Dextrose/Water 50 ml 08/15/24 17:47 Dextrose 50% Syringe 50 Ml IVP PER PROTOCOL PRN Hypoglycemia Protocol Ezetimibe 10 mg 08/15/24 21:00 08/15/24 20:42 Ezetimibe 10 Mg Tab PO 10 mg HS [facility] Administration Famotidine 20 mg 08/15/24 17:45 Famotidine 20 Mg Tab PO HS PRN Heartburn Folic Acid 1 mg 08/16/24 09:00 Folic Acid 1 Mg Tab PO DAILY [facility] Gabapentin 600 mg 08/15/24 21:00 08/15/24 20:42 Gabapentin 300 Mg Cap PO 600 mg BID [facility] Administration Heparin Sodium (Porcine) 0 unit 08/15/24 12:08 Heparin Sodium 1,000 Un/Ml (10ml Vl) IV PER PROTOCOL PRN Low PTT Protocol Hydrochlorothiazide 12.5 mg 08/16/24 09:00 Hydrochlorothiazide 12.5 Mg Cap PO DAILY [facility] Heparin Sodium/Sodium Chloride 250 mls @ 7.076 mls/hr 08/15/24 12:15 08/15/24 13:46 25,000 unit/ Sodium Chloride IV 12 units/kg/hr .Q24H [facility] 7.076 mls/hr Administration Protocol 12 UNITS/KG/HR Ceftriaxone Sodium 1 gm/ 50 mls @ 100 mls/hr 08/16/24 09:00 Sodium Chloride IVPB DAILY [facility] Protocol Insulin Human Lispro 0 unit 08/15/24 21:00 08/16/24 06:30 Insulin Lispro (Humalog) 100 Unit/Ml 10 Ml Vl SQ Not Given ACHS [facility] Protocol Losartan Potassium 100 mg 08/16/24 09:00 Losartan 50 Mg Tab PO DAILY [facility] Magnesium Oxide 400 mg 08/15/24 21:00 08/15/24 20:42 Magnesium Oxide 400 Mg Tab PO 400 mg BID [facility] Administration Metformin HCl 500 mg 08/15/24 21:00 08/15/24 20:42 Metformin 500 Mg Tab PO 500 mg BID [facility] Administration Naloxone HCl 0.2 mg 08/15/24 12:09 Naloxone 0.4 Mg/Ml 1 Ml Vial IV Q2M PRN Opioid Reversal Pantoprazole Sodium 40 mg 08/16/24 09:00 Pantoprazole 40 Mg Tablet PO DAILY [facility] Intake and Output 08/15/24 08/16/24 08/16/24 22:59 06:59 14:59 Intake Total 440 Balance 440 Intake: Oral 440 Other: Voiding Method Toilet Toilet # Voids 1 Weight 61.9 kg 08/16/24 05:49 08/15/24 10:36
[2024-08-16 11:12] LABS: Glucose,Whole Blood 124 mg/dL (70-110)
[2024-08-16] MEDS: AZITHROMYCIN 500 MG TAB PO SCH (11:53)
[2024-08-16] MEDS: POTASSIUM CHLORIDE ER 20 MEQ TAB.ER PO STA (11:53)
--- NOTE | 2024-08-16 13:08 | CA ---
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 67 - 155 / 56 - 104 cm??? LV Systolic Volume MOD BP 22.1 cm??? 22 - 58 / 19 - 49 cm??? LV Ejection Fraction MOD BP 61.8 % >= 55 % LV Cardiac Index MOD BP 1768.3 cm???/min???m??? LV Diastolic Volume MOD 4C 58.2 cm??? LV Systolic Volume MOD 4C 22.1 cm??? LV Ejection Fraction MOD 4C 61.9 % LV Cardiac Index MOD 4C 1784.0 cm???/min???m??? LV Diastolic Length 4C 7.0 cm LV Systolic Length 4C 5.6 cm LV Diastolic Volume MOD 2C 56.0 cm??? LV Systolic Volume MOD 2C 19.9 cm??? LV Ejection Fraction MOD 2C 64.4 % LV Cardiac Index MOD 2C 1785.6 cm???/min???m??? LV Diastolic Length 2C 6.8 cm LV Systolic Length 2C 5.1 cm Ascending Aorta Diameter 3.1 cm DOPPLER AV Peak Velocity 160.1 cm/s AV Peak Gradient 10.3 mmHg AV Mean Velocity 114.6 cm/s AV Mean Gradient 5.7 mmHg AV Velocity Time Integral 32.8 cm LVOT Peak Velocity 112.2 cm/s LVOT Peak Gradient 5.0 mmHg LVOT Velocity Time Integral 21.5 cm LVOT Stroke Volume 60.4 cm??? LVOT Stroke Volume Index 36.4 ml/m??? LVOT Cardiac Index 2992.2 cm???/min???m??? AV Area Cont Eq vti 1.8 cm??? AV Area Cont Eq pk 2.0 cm??? Mitral E Point Velocity 67.7 cm/s Mitral A Point Velocity 87.4 cm/s Mitral E to A Ratio 0.8 MV Deceleration Time 166.2 ms MV E' Velocity 4.2 cm/s Mitral E to MV E' Ratio 16.3 PV Peak Velocity 78.3 cm/s PV Peak Gradient 2.5 mmHg FINDINGS Left Ventricle Left ventricular ejection fraction is estimated at 55-60 %. Left ventricular cavity size normal. Left ventricular wall thickness normal. No obvious regional wall motion abnormalities. Right Ventricle Normal right ventricular size and function. Right Atrium Normal right atrial size. Left Atrium Normal left atrial size. Mitral Valve Structurally normal mitral valve. No evidence for mitral valve prolapse. No mitral stenosis. Trace to mild mitral regurgitation. Aortic Valve Trileaflet aortic valve. No aortic valve stenosis or regurgitation. Tricuspid Valve Structurally normal tricuspid valve. No tricuspid stenosis. Trace tricuspid regurgitation. Pulmonic Valve Structurally normal pulmonic valve. No pulmonic stenosis. No pulmonic regurgitation. Pericardium No pericardial effusion. Aorta Normal size aortic root and proximal ascending aorta. CONCLUSIONS Left ventricular ejection fraction 55 to 60% Trace to mild mitral regurgitation Trace tricuspid regurgitation No pericardial effusion Previewed by: Dr. Suhas Doyle DO (Electronically Signed) Final Date: 16 August 2024 13:07
[2024-08-16 16:04] LABS: Glucose,Whole Blood 147 mg/dL (70-110)
[2024-08-16 20:00] LABS: Glucose,Whole Blood 176 mg/dL (70-110)
[2024-08-17 05:57] LABS: Glucose,Whole Blood 122 mg/dL (70-110)
[2024-08-17 07:50] LABS: Basophils # (A) 0.04 10*3/uL (0.00-0.10); Basophils % (A) 0.6 %; Eosinophils # (A) 0.25 10*3/uL (0.04-0.35); Eosinophils % (A) 3.4 %; HCT 33.3 % (37.2-46.3); HGB 10.7 g/dL (12.0-15.0); Lymphocytes # (A) 1.81 10*3/uL (0.90-5.00); Lymphocytes % (A) 24.9 %; MCH 29.8 pg (27.0-32.0); MCHC 32.1 g/dL (32.0-37.0); MCV 92.8 fL (80.0-97.0); Mean Platelet Volume 11.8 fL (9.5-12.2); Monocytes # (A) 0.47 10*3/uL (0.20-1.00); Monocytes % (A) 6.5 %; Neutrophils # (A) 4.67 10*3/uL (1.80-7.70); Neutrophils % (A) 64.2 %; Platelet Count 199 10*3/uL (140-440); RBC 3.59 10*6/uL (4.10-5.20); RDW 15.9 % (11.5-14.5); WBC 7.27 10*3/uL (4.50-10.00)
[2024-08-17 08:08] LABS: ALT 11 U/L (4-34); AST 15 U/L (14-36); African American GFR (CKD) 83 (>60 ml/min/1.73 sqM); Albumin 3.5 g/dL (3.5-5.0); Alkaline Phosphatase 90 U/L (38-126); Anion Gap 6 mmol/L; Blood Urea Nitrogen 17 mg/dL (7-17); Calcium 9.2 mg/dL (8.4-10.2); Carbon Dioxide 32 mmol/L (22-30); Chloride 103 mmol/L (98-107); Glucose 134 mg/dL (74-99); Non-African American GFR(CKD) 72 (>60 ml/min/1.73 sqM); Potassium 4.2 mmol/L (3.5-5.1); Sodium 141 mmol/L (137-145); Total Bilirubin 0.6 mg/dL (0.2-1.3)
[2024-08-17 09:35] VITALS: RESP 17
--- NOTE | 2024-08-17 09:58 | P.PN ---
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 She has a past medical history of hypertension, hyperlipidemia, diabetes mellitus type 2. We have been asked to evaluate the patient for NSTEMI. Patient gives history that she came into the hospital due to fever, rigors, generalized muscle aches. She also had some left-sided chest pain that was a stabbing type sensation. She has been diagnosed with right lower lobe pneumonia and started on IV antibiotics. Blood pressure 110/70, heart rate 86, pulse ox 98% on room air. Patient has been started on a heparin drip potassium will be replaced. -EKG: Sinus rhythm with no acute ST-T wave changes. -Chest x-ray: Right lower lobe airspace opacities unclear if chronic or new acute infection. -Laboratory studies: WBC 11.9, hemoglobin 10, sodium 140, potassium 3.5, BUN 20 creatinine 0.74. Troponin 0.125, 0.12, 0.064. Cepheid viral panel not detected. Urinalysis negative. -Home cardiac medications: Amlodipine 5 mg at bedtime, aspirin 81 mg daily, atenolol 50 mg daily, atorvastatin 80 mg daily, clonidine 0.1 mg twice daily, Farxiga 10 mg daily, Zetia 10 mg at bedtime, losartan hydrochlorothiazide 100- 12.5 mg 1 daily, magnesium oxide 400 mg twice daily. I will okay okay alright I will put cement in the [place] okay just to 30 okay thank you mind over there oh 08/17/2024 Patient seen and examined. She states that she does not feel as weak as when she came in. She did have very interrupted sleep through the night. Echocardiogram was reviewed with the patient. This revealed EF 55 to 60%, trace to mild mitral regurgitation, trace tricuspid regurgitation. Blood pressure 120/72, heart rate 76, pulse ox 98% on room air. Repeat blood work reveals WBC 7.2, hemoglobin 10.7, creatinine 0.81. To clarify patient's symptoms prior to arrival. She stated that she had been coughing all night long. She thought that her GERD was bothering her and she took some antiacid medications. She then felt like all of her joints were hurting her and she had a fever. Physical examination: Gen: This is 74-year-old female in no acute distress VS: reviewed HEENT: Head is atraumatic, normocephalic. Pupils equal, round. Sclerae is anicteric. NECK: Supple. No JVD. LUNGS: Crackles in the right base. No intercostal retractions. HEART: Regular rate and rhythm. No murmur. ABDOMEN: Soft No tenderness. EXTREMITIES: No pedal edema. No calf tenderness. NEUROLOGICAL: Patient is awake, alert and oriented x3. Assessment: Right lower lobe pneumonia and sepsis Elevated troponins and flat pattern possibly related to pneumonia and sepsis Hypertension Hyperlipidemia Diabetes mellitus type 2 Anemia but appears to be dilutional Plan: Continue patient's home cardiac medications Patient is cleared for discharge and may follow-up with Dr. Hamilton as an outpatient to have stress test performed once pneumonia has cleared Nurse practitioner note has been reviewed, I agree with documented findings and plan of care. Patient was seen and examined. Objective - Vital Signs Vital signs: Vital Signs Temp 97.9 F 08/17/24 04:00 Pulse 67 08/17/24 04:00 Resp 16 08/17/24 04:00 BP 112/69 08/17/24 04:00 Pulse Ox 97 08/17/24 04:00 FiO2 Intake & Output 08/16/24 08/17/24 08/17/24 18:59 06:59 18:59 Intake Total 395.27 240 180 Balance 395.27 240 180 Weight 62.5 kg Intake: IV 20 Invasive Line 1 20 Intake, IV Titration 135.27 Amount Heparin Sod,Pork in 0.45% 135.27 NaCl 25,000 unit In 0.45 % NaCl 1 250ml.bag @ 12 UNITS/KG/HR 7.076 mls/hr IV .Q24H [facility] Rx#: [id number] Oral 240 240 180 Other: Voiding Method Toilet Toilet # Voids 1 - Labs CBC & Chem 7: 08/17/24 07:02 08/17/24 07:02 Labs: Abnormal Lab Results - Last 24 Hours (Table) 08/15/24 08/16/24 08/16/24 Range/Units 10:36 10:19 11:07 RBC (4.10-5.20) 10*6/uL Hgb (12.0-15.0) g/dL Hct (37.2-46.3) % Carbon Dioxide (22-30) mmol/L Glucose (74-99) mg/dL POC Glucose (mg/dL) 124 H (70-110) mg/dL Hemoglobin A1c 6.9 H (<=6.0) % Total Protein (6.3-8.2) g/dL Procalcitonin 5.53 H (0.02-0.50) ng/mL 08/16/24 08/16/24 08/17/24 Range/Units 16:02 19:59 05:56 RBC (4.10-5.20) 10*6/uL Hgb (12.0-15.0) g/dL Hct (37.2-46.3) % Carbon Dioxide (22-30) mmol/L Glucose (74-99) mg/dL POC Glucose (mg/dL) 147 H 176 H 122 H (70-110) mg/dL Hemoglobin A1c (<=6.0) % Total Protein (6.3-8.2) g/dL Procalcitonin (0.02-0.50) ng/mL 08/17/24 08/17/24 Range/Units 07:02 07:02 RBC 3.59 L (4.10-5.20) 10*6/uL Hgb 10.7 L (12.0-15.0) g/dL Hct 33.3 L (37.2-46.3) % Carbon Dioxide 32 H (22-30) mmol/L Glucose 134 H (74-99) mg/dL POC Glucose (mg/dL) (70-110) mg/dL Hemoglobin A1c (<=6.0) % Total Protein 6.0 L (6.3-8.2) g/dL Procalcitonin (0.02-0.50) ng/mL Microbiology - Last 24 Hours (Table) 08/15/24 10:36 Blood Culture - Preliminary Blood
[2024-08-17 11:22] LABS: Glucose,Whole Blood 128 mg/dL (70-110)
--- NOTE | 2024-08-17 13:03 | P.PN ---
Subjective Progress Note Date: 08/17/24 Principal diagnosis: Pneumonia. Patient is a 73-year-old female with past medical history significant for diabetes mellitus, hypertension, hyperlipidemia, GERD, gastritis, anxiety. Her primary care provider is Dr. Real. Of note, patient previously hospitalized December 2023 for COVID-19 and pneumonia. Chest x-ray at that time showed right lower lobe infiltrate concerning for pneumonia and follow-up chest x-ray did show resolution. Presents to the emergency department yesterday morning with a chief complaint of fevers, shaking, myalgias, left-sided chest pain. Workup in [facility] emergency department including a chest x-ray showing a right lower lobe airspace opacity. CBC unremarkable for leukocytosis. CMP: Sodium 140, potassium 3.4, chloride 100, serum bicarb 33, BUN 20, creatinine 0.74, glucose 143. Lactic 1.5. LFTs unremarkable. Troponins were elevated at 0.125, 0.12, and 0.064 respectively. Viral screen negative for influenza A/B, RSV, COVID. EKG: Normal sinus rhythm, rate 88 bpm, with nonspecific T wave abnormalities. Current evaluating this patient in the cardiac stepdown unit. She was previously started on heparin for elevated troponins. Denies any current chest pain. Patient states that her trouble breathing started abruptly the night prior. She was laying in bed had some indigestion and tasted reflux in her mouth. Did abruptly have a coughing fit and developed some shortness of breath with right-sided chest pain. Associated myalgias, shaking and chills followed. Currently, she is on room air. Denies any further shortness of breath. Denies any current coughing, sputum production, hemoptysis. No known sick contacts or recent travel. Has empirically been started on antibiotics. Currently afebrile. Did previously have a temperature with a Tmax of 101.6 F. Nontoxic appearance. Progress note dated August 17, 2024. 74-year-old female seen in consultation yesterday. Please see the note above. The patient is seen today in room 352. She is sitting at the edge of the bed. She is on room air. She is not receiving any IV fluids. From the pulmonary standpoint, in my opinion, she could be discharged. Current laboratory data includes a white count of 7.3, hemoglobin 10.7, hematocrit 33.3, and a platelet count of 199,000. Sodium 141, potassium 4.2, chlorides 103, CO2 32, BUN 17, creatinine 0.81. Glucose is 128. Chest x-ray suggested a right lower lobe infiltrate. Objective - Vital Signs Vital signs: Vital Signs Temp 97.9 F 08/17/24 12:00 Pulse 75 08/17/24 12:00 Resp 17 08/17/24 12:00 BP 102/65 08/17/24 12:00 Pulse Ox 97 08/17/24 12:00 FiO2 Intake & Output 08/16/24 08/17/24 08/17/24 18:59 06:59 18:59 Intake Total 395.27 240 430 Balance 395.27 240 430 Weight 62.5 kg Intake: IV 20 10 Invasive Line 1 20 10 Intake, IV Titration 135.27 Amount Heparin Sod,Pork in 0.45% 135.27 NaCl 25,000 unit In 0.45 % NaCl 1 250ml.bag @ 12 UNITS/KG/HR 7.076 mls/hr IV .[facility] Rx#: [id number] Oral 240 240 420 Other: Voiding Method Toilet Toilet Toilet # Voids 1 - Exam No acute distress, oriented 3. HEENT examination is grossly unremarkable. Mucous membranes are moist. No oral lesions. Neck supple. Full range of motion. No adenopathy thyromegaly or neck vein di stention. Cardiovascular examination reveals regular rhythm rate. S1-S2 normal. No S3 or S4. No discernible murmur noted. Lungs reveal minimal crackles, right base. Few scattered rhonchi. No wheezes. Abdomen soft bowel sounds are heard. No masses or tenderness. Extremities are intact. No cyanosis clubbing or edema. Skin is without rash or lesion. Neurologic examination is brief but nonfocal. - Labs CBC & Chem 7: 08/17/24 07:02 08/17/24 07:02 Labs: Abnormal Lab Results - Last 24 Hours (Table) 08/16/24 08/16/24 08/16/24 Range/Units 10:19 16:02 19:59 RBC (4.10-5.20) 10*6/uL Hgb (12.0-15.0) g/dL Hct (37.2-46.3) % Carbon Dioxide (22-30) mmol/L Glucose (74-99) mg/dL POC Glucose (mg/dL) 147 H 176 H (70-110) mg/dL Total Protein (6.3-8.2) g/dL Procalcitonin 5.53 H (0.02-0.50) ng/mL 08/17/24 08/17/24 08/17/24 Range/Units 05:56 07:02 07:02 RBC 3.59 L (4.10-5.20) 10*6/uL Hgb 10.7 L (12.0-15.0) g/dL Hct 33.3 L (37.2-46.3) % Carbon Dioxide 32 H (22-30) mmol/L Glucose 134 H (74-99) mg/dL POC Glucose (mg/dL) 122 H (70-110) mg/dL Total Protein 6.0 L (6.3-8.2) g/dL Procalcitonin (0.02-0.50) ng/mL 08/17/24 Range/Units 11:21 RBC (4.10-5.20) 10*6/uL Hgb (12.0-15.0) g/dL Hct (37.2-46.3) % Carbon Dioxide (22-30) mmol/L Glucose (74-99) mg/dL POC Glucose (mg/dL) 128 H (70-110) mg/dL Total Protein (6.3-8.2) g/dL Procalcitonin (0.02-0.50) ng/mL Microbiology - Last 24 Hours (Table) 08/15/24 10:36 Blood Culture - Preliminary Blood Assessment and Plan Assessment: Right lower lobe community-acquired pneumonia. Acute dyspnea, secondary to above. Elevated troponins. Gastroesophageal reflux disease History of moderate-sized hiatal hernia. History of gastritis. Hypokalemia. History of COVID-19 pneumonia, December 2023. Hypertension. History of hyperlipidemia. Diabetes mellitus type 2. History of diabetic neuropathy. Plan: Plan dated August 17, 2024. The patient is seen today in room 352. The patient was hoping to be discharged home. She is really without any significant pulmonary complaints. She is on room air. She is not receiving any IV fluids. She is sitting at the side of the bed. Labs, x-rays, and medications are reviewed. Procalcitonin level was elevated at 5.53. Urine was negative. Viral screen was negative. The patient continues on azithromycin and Rocephin. We will continue to follow make recommendations. Dictation was produced using [employer] dictation software. Please excuse any grammatical, word or spelling errors. Time with Patient: Less than 30
--- NOTE | 2024-08-17 13:20 | P.PN ---
Subjective Progress Note Date: 08/17/24 HISTORY OF PRESENT ILLNESS: This is a 74-year-old female with a previous medical history signif icant for hypertension and hypertensive cardiovascular disease, hyperlipidemia, diabetes mellitus type 2, with diabetic polyneuropathy, history of gastroesophageal flux disease, patient presented to the emergency department at [facility] yesterday with urinary frequency, along with increased shortness of breath, minimal cough, no phlegm production, was evaluated emergency department, had a viral swab that was negative, she ended up having a chest x-ray that showed right lobe pneumonia not sure whether an acute over chronic , surprisingly she was having elevated troponin she was started on heparin drip, was admitted to the hospital for right lower lobe pneumonia along with type II MA likely related to pneumonia with sepsis, patient was started on IV antibiotic in the form of ceftriaxone 2 g piggyback every 24 hours, Zithromax 500 mg orally once every day, pulmonary consultation as well as cardiology consultation was obtained 08/16: Patient is sitting up in bed in no apparent distress, she denies any coughing, hemoptysis, she has no shortness of breath, she appears to be somewhat tachycardic, she denies any abdominal pain, nausea vomiting or diarrhea, she was seen in consultation by cardiology will discontinue the heparin drip, start the patient on subcu heparin, echocardiogram is ordered we will follow-up with the result of LV function at this point in time, continue IV antibiotic in the form of Rocephin continue Zithromax, pulmonary consultation appreciated 08/17: Patient sitting up in bed in no apparent distress, she is coughing and minimal phlegm production, she denies any shortness of breath at this time she has no pleurisy at this point, she has no abdominal pain, her procalcitonin level is quite elevated, suggestive of acute pneumonia, continue Rocephin and Zithromax for another 24 hours, patient can be discharged home hopefully in the next 24 hours. Echocardiogram was reviewed with the patient showed normal ejection fraction and trace mitral and tricuspid regurgitation. No evidence of wall motion abnormalities. REVIEW OF SYSTEMS: Constitutional: fever, no chills, no night sweats. No weight change. Positive for weakness, fatigue or lethargy. No daytime sleepiness. EENT: No headache. No blurred vision or double vision, no loss of vision. No loss of Hearing, no ringing in the ears, no dizziness. No nasal drainage or congestion. No epistaxis. No sore throat. Lungs: Positive for shortness of breath, positive for cough, no sputum produ ction. No wheezing. Reports dyspnea with activity. Cardiovascular: No chest pain, no lower extremity edema. No palpitations. No paroxysmal nocturnal dyspnea. No orthopnea. No lightheadedness or dizziness. No syncopal episodes. Abdominal: Reports no abdominal pain. No nausea, vomiting. No diarrhea. No constipation. No bloody or tarry stools reports loss of appetite. Genitourinary: No dysuria, increased frequency, urgency. No urinary retention, urinary incontinence Musculoskeletal: No myalgias. No muscle weakness, no gait dysfunction, no frequent falls. No back pain. No neck pain. Integumentary: No wounds, no lesions. No rash or pruritus. No unusual bruising. No change in hair or nails. Neurologic: No aphasia. No facial droop. No change in mentation. No head injury. No headache. No paralysis. positive for neuropathy in both feet.. Psychiatric: No depression. No anxiety. No mood swings. Endocrine: No abnormal blood sugars. No weight change. PHSICAL EXAMINATION: General: 74-year-old female examined in bed in no distress. HEENT: Head is atraumatic, normocephalic, pupils were equal round reactive to light and recommendation, extraocular muscle movement were intact, sclera nonicteric, conjunctivae were pale, mucous membranes of the mouth are somewhat dry. Neck: Supple, no JVP, normal carotid upstroke bilaterally, no lymphadenopathy. Chest: Decreased breath sounds at the bases, few rhonchi, no expiratory wheezes, no chest wall tenderness, no intercostal retractions. Positive for egophony in the right lower lobe Heart: First heart sound is normal, second heart sound is normal there is systolic ejection murmur 2 over cystic in the left sternal border. Abdomen: Soft, nontender, nondistended, positive bowel sounds. Extremities: There is no edema no calf tenderness DP +1 bilaterally. Neurologic examination: Patient is awake alert and oriented x3, cranial nerves II-12 appear grossly intact, muscle power were 5 out of 5 in upper extremities and 5 out of 5 in bilateral lower extremities, deep tendon reflexes normal bilaterally. ASSESSMENT AND PLAN: 1. Right lower lobe community-acquired pneumonia continue patient Rocephin 1 g IV piggyback every 24 hours, start the patient on Zithromax 500 mg orally once every day, we will continue the same treatment hopefully home tomorrow morning. 2. Type II MA likely related to pneumonia with sepsis. Continue IV heparin for the next 24 hours, then transition the patient to subcu heparin 5000 units subcutaneous every 12 hours. Cardiology consultation appreciated, echocardiogram showed ejection fraction 55% and mild mitral regurgitation and tricuspid regurgitation. 3. Hypertension and hypertensive cardiovascular disease. Continue patient on losartan 100/12.5 mg orally once every day, continue atenolol 50 mg orally once every day, continue amlodipine 5 mg once every day as well as clonidine 0.1 mg orally twice every day 4. Mixed hyperlipidemia. Continue patient on atorvastatin 80 mg once every day, Zetia 10 mg once every day, monitor lipid panel, keep LDL 55-70. 5. Diabetes mellitus type 2. Continue patient on metformin 500 mg orally twice every day, continue Farxiga 5 mg orally once every day, started the patient on sliding scale insulin. 6. History of gout. Continue allopurinol 100 mg orally once every day. 7. GERD with esophagitis. Continue famotidine 20 mg at bedtime, pantoprazole 40 mg orally once every day. 8. Spondylosis of the lumbar spine continue current pain management with gabapentin 600 mg orally twice every day continue Tylenol as needed 9. Diabetic polyneuropathy. Continue gabapentin 600 mg orally twice every day, monitor the patient symptoms very closely. 10. History of PAD. Stable at this time, patient is up-to-date on her arterial Doppler of both lower extremities. 11. DVT prophylaxis. Continue heparin drip for now, will transition into heparin subcu in the next 24 hours 12. GI prophylaxis. Continue PPI, continue famotidine 20 mg once every day. 13. Continue telemetry. 14. Increase activity 15. Home tomorrow morning. Objective - Vital Signs Vital signs: Vital Signs Temp 97.9 F 08/17/24 12:00 Pulse 75 08/17/24 12:00 Resp 17 08/17/24 12:00 BP 102/65 08/17/24 12:00 Pulse Ox 97 08/17/24 12:00 FiO2 Intake & Output 08/16/24 08/17/24 08/17/24 18:59 06:59 18:59 Intake Total 395.27 240 440 Balance 395.27 240 440 Weight 62.5 kg Intake: IV 20 20 Invasive Line 1 20 20 Intake, IV Titration 135.27 Amount Heparin Sod,Pork in 0.45% 135.27 NaCl 25,000 unit In 0.45 % NaCl 1 250ml.bag @ 12 UNITS/KG/HR 7.076 mls/hr IV .Q24H [facility] Rx#: [id number] Oral 240 240 420 Other: Voiding Method Toilet Toilet Toilet # Voids 1 - Labs CBC & Chem 7: 08/17/24 07:02 08/17/24 07:02 Labs: Abnormal Lab Results - Last 24 Hours (Table) 08/16/24 08/16/24 08/16/24 Range/Units 10:19 16:02 19:59 RBC (4.10-5.20) 10*6/uL Hgb (12.0-15.0) g/dL Hct (37.2-46.3) % Carbon Dioxide (22-30) mmol/L Glucose (74-99) mg/dL POC Glucose (mg/dL) 147 H 176 H (70-110) mg/dL Total Protein (6.3-8.2) g/dL Procalcitonin 5.53 H (0.02-0.50) ng/mL 08/17/24 08/17/24 08/17/24 Range/Units 05:56 07:02 07:02 RBC 3.59 L (4.10-5.20) 10*6/uL Hgb 10.7 L (12.0-15.0) g/dL Hct 33.3 L (37.2-46.3) % Carbon Dioxide 32 H (22-30) mmol/L Glucose 134 H (74-99) mg/dL POC Glucose (mg/dL) 122 H (70-110) mg/dL Total Protein 6.0 L (6.3-8.2) g/dL Procalcitonin (0.02-0.50) ng/mL 08/17/24 Range/Units 11:21 RBC (4.10-5.20) 10*6/uL Hgb (12.0-15.0) g/dL Hct (37.2-46.3) % Carbon Dioxide (22-30) mmol/L Glucose (74-99) mg/dL POC Glucose (mg/dL) 128 H (70-110) mg/dL Total Protein (6.3-8.2) g/dL Procalcitonin (0.02-0.50) ng/mL Microbiology - Last 24 Hours (Table) 08/15/24 10:36 Blood Culture - Preliminary Blood
[2024-08-17 16:32] LABS: Glucose,Whole Blood 114 mg/dL (70-110)
[2024-08-17 20:25] LABS: Glucose,Whole Blood 200 mg/dL (70-110)
[2024-08-18 06:14] LABS: Glucose,Whole Blood 123 mg/dL (70-110)
[2024-08-18 08:27] VITALS: BP 114/70; PULSE 70; TEMP 98.8
--- NOTE | 2024-08-18 13:07 | P.PN ---
Subjective Progress Note Date: 08/18/24 Reason for Consult (text): NSTEMI History of present illness: This is a 74-year-old female does not follow with a histological illustrator. She has a past medical history of hypertension, hyperlipidemia, diabetes mellitus type 2. We have been asked to evaluate the patient for NSTEMI. Patient gives history that she came into the hospital due to fever, rigors, generalized muscle aches. She also had some left-sided chest pain that was a stabbing type sensation. She has been diagnosed with right lower lobe pneumonia and started on IV antibiotics. Blood pressure 110/70, heart rate 86, pulse ox 98% on room air. Patient has been started on a heparin drip potassium will be replaced. -EKG: Sinus rhythm with no acute ST-T wave changes. -Chest x-ray: Right lower lobe airspace opacities unclear if chronic or new acute infection. -Laboratory studies: WBC 11.9, hemoglobin 10, sodium 140, potassium 3.5, BUN 20 creatinine 0.74. Troponin 0.125, 0.12, 0.064. Cepheid viral panel not detected. Urinalysis negative. -Home cardiac medications: Amlodipine 5 mg at bedtime, aspirin 81 mg daily, atenolol 50 mg daily, atorvastatin 80 mg daily, clonidine 0.1 mg twice daily, Farxiga 10 mg daily, Zetia 10 mg at bedtime, losartan hydrochlorothiazide 100- 12.5 mg 1 daily, magnesium oxide 400 mg twice daily. I will okay okay alright I will put cement in the [place] okay just to 30 okay thank you mind over there oh 08/17/2024 Patient seen and examined. She states that she does not feel as weak as when she came in. She did have very interrupted sleep through the night. Echocardiogram was reviewed with the patient. This revealed EF 55 to 60%, trace to mild mitral regurgitation, trace tricuspid regurgitation. Blood pressure 120/72, heart rate 76, pulse ox 98% on room air. Repeat blood work reveals WBC 7.2, hemoglobin 10.7, creatinine 0.81. To clarify patient's symptoms prior to arrival. She stated that she had been coughing all night long. She thought that her GERD was bothering her and she took some antiacid medications. She then felt like all of her joints were hurting her and she had a fever. 08/18 Patient has no new concerns today. She is hoping to be discharged. Blood pressure 114/70, heart rate 70, pulse ox 97% on room air. Repeat blood work reveals hemoglobin 10.7, BUN 17 creatinine 0.81, potassium 4.2. Physical examination: Gen: This is 74-year-old female in no acute distress VS: reviewed HEENT: Head is atraumatic, normocephalic. Pupils equal, round. Sclerae is anicteric. NECK: Supple. No JVD. LUNGS: Crackles in the right base. No intercostal retractions. HEART: Regular rate and rhythm. No murmur. ABDOMEN: Soft No tenderness. EXTREMITIES: No pedal edema. No calf tenderness. NEUROLOGICAL: Patient is awake, alert and oriented x3. Assessment: Right lower lobe pneumonia and sepsis Elevated troponins and flat pattern possibly related to pneumonia and sepsis Hypertension Hyperlipidemia Diabetes mellitus type 2 Anemia but appears to be dilutional Plan: Continue patient's home cardiac medications Patient is cleared for discharge and may follow-up with Dr. Hamilton as an outpatient to have stress test performed once pneumonia has cleared Nurse practitioner note has been reviewed, I agree with documented findings and plan of care. Patient was seen and examined. Objective - Vital Signs Vital signs: Vital Signs Temp 97.8 F 08/18/24 04:17 Pulse 61 08/18/24 04:17 Resp 17 08/18/24 04:17 BP 109/67 08/18/24 04:17 Pulse Ox 99 08/18/24 04:17 FiO2 Intake & Output 08/17/24 08/18/24 08/18/24 18:59 06:59 18:59 Intake Total 620 Balance 620 Weight 60.6 kg Intake: IV 20 Invasive Line 1 20 Oral 600 Other: Voiding Method Toilet Toilet # Voids 1 - Labs CBC & Chem 7: 08/17/24 07:02 08/17/24 07:02 Labs: Abnormal Lab Results - Last 24 Hours (Table) 08/17/24 08/17/24 08/17/24 Range/Units 07:02 11:21 16:30 Carbon Dioxide 32 H (22-30) mmol/L Glucose 134 H (74-99) mg/dL POC Glucose (mg/dL) 128 H 114 H (70-110) mg/dL Total Protein 6.0 L (6.3-8.2) g/dL 08/17/24 08/18/24 Range/Units 20:23 06:08 Carbon Dioxide (22-30) mmol/L Glucose (74-99) mg/dL POC Glucose (mg/dL) 200 H 123 H (70-110) mg/dL Total Protein (6.3-8.2) g/dL Microbiology - Last 24 Hours (Table) 08/15/24 10:36 Blood Culture - Preliminary Blood
--- NOTE | 2024-08-18 13:56 | P.DS ---
Providers Date of admission: 08/15/24 12:10 Expected date of discharge: 08/18/24 Attending physician: Amador Real Consults: 08/15/24 12:09 Consult Physician Routine Consulting Provider: Cardiology Sandor Consult Reason/Comments: NSTEMI Do you want consulting provider notified?: Yes, Notify in am Consult Physician Routine Consulting Provider: Pako Chung Reason/Comments: pneumonia Do you want consulting provider notified?: Yes, Notify in am Primary care physician: Amador Real Hospital Course: HISTORY OF PRESENT ILLNESS: This is a 74-year-old female with a previous medical history significant for hypertension and hypertensive cardiovascular disease, hyperlipidemia, diabetes mellitus type 2, with diabetic polyneuropathy, history of gastroesophageal flux disease, patient presented to the emergency department at [facility] yesterday with urinary frequency, along with increased shortness of breath, minimal cough, no phlegm production, was evaluated emergency department, had a viral swab that was negative, she ended up having a chest x-ray that showed right lobe pneumonia not sure whether an acute over chronic , surprisingly she was having elevated troponin she was started on heparin drip, was admitted to the hospital for right lower lobe pneumonia along with type II OK likely related to pneumonia with sepsis, patient was started on IV antibiotic in the form of ceftriaxone 2 g piggyback every 24 hours, Zithromax 500 mg orally once every day, pulmonary consultation as well as cardiology consultation was obtained 08/16: Patient is sitting up in bed in no apparent distress, she denies any coughing, hemoptysis, she has no shortness of breath, she appears to be somewhat tachycardic, she denies any abdominal pain, nausea vomiting or diarrhea, she was seen in consultation by cardiology will discontinue the heparin drip, start the patient on subcu heparin, echocardiogram is ordered we will follow-up with the result of LV function at this point in time, continue IV antibiotic in the form of Rocephin continue Zithromax, pulmonary consultation appreciated 08/17: Patient sitting up in bed in no apparent distress, she is coughing and minimal phlegm production, she denies any shortness of breath at this time she has no pleurisy at this point, she has no abdominal pain, her procalcitonin level is quite elevated, suggestive of acute pneumonia, continue Rocephin and Zithromax for another 24 hours, patient can be discharged home hopefully in the next 24 hours. Echocardiogram was reviewed with the patient showed normal eject ion fraction and trace mitral and tricuspid regurgitation. No evidence of wall motion abnormalities. 08/18: Patient sitting at the edge of the bed, her was at the bedside, she is feeling a lot better today, she has not had any cough or phlegm production at this time, she is not short of breath, she has no fever or chills, she has no dysphagia, she has no difficulty swallowing, she has no diarrhea, patient will be discharged home today, she will be given 1 more dose of Zithromax 500 mg for a total of 5-day course of Zithromax, she will follow-up with me as an outpatient next week, as a matter fact she has an appoint with me tomorrow morning. Her prescription was sent to [facility]. Discharge diagnoses: 1. Right lower lobe community-acquired pneumonia 2. Type II OK likely related to pneumonia with sepsis. 3. Hypertension and hypertensive cardiovascular disease. 4. Mixed hyperlipidemia. 5. Diabetes mellitus type 2. 6. History of gout. 7. GERD with esophagitis. 8. Spondylosis of the lumbar spine 9. Diabetic polyneuropathy. 10. History of PAD. Patient Condition at Discharge: Stable Plan - Discharge Summary Discharge Rx Participant: Yes New Discharge Prescriptions: New Azithromycin [Zithromax] 500 mg PO DAILY 1 Days #1 tab Continue cloNIDine HCL [Catapres] 0.1 mg PO BID Omeprazole 40 mg PO DAILY Losartan/Hydrochlorothiazide [Losartan-Hctz 100-12.5 mg Tab] 1 tab PO DAILY Atorvastatin [Lipitor] 80 mg PO DAILY allopurinoL [Zyloprim] 100 mg PO DAILY Folic Acid 1 mg PO DAILY atenoloL [Tenormin] 50 mg PO DAILY metFORMIN HCL 500 mg PO BID Cholecalciferol [Vitamin D3 (25 Mcg = 1000 Iu)] 25 mcg PO DAILY tab Magnesium Oxide [Mag-Ox] 400 mg PO BID amLODIPine [Norvasc] 5 mg PO HS Gabapentin 600 mg PO BID Ezetimibe [Zetia] 10 mg PO HS Aspirin 81 mg PO DAILY Famotidine [Pepcid] 20 mg PO HS PRN PRN Reason: Heartburn Dapagliflozin Propanediol [Farxiga] 10 mg PO DAILY Discharge Medication List Atorvastatin [Lipitor] 80 mg PO DAILY 02/26/18 [History] Folic Acid 1 mg PO DAILY 02/26/18 [History] Losartan/Hydrochlorothiazide [Losartan-Hctz 100-12.5 mg Tab] 1 tab PO DAILY 02/26/18 [History] Omeprazole 40 mg PO DAILY 02/26/18 [History] allopurinoL [Zyloprim] 100 mg PO DAILY 02/26/18 [History] atenoloL [Tenormin] 50 mg PO DAILY 02/26/18 [History] cloNIDine HCL [Catapres] 0.1 mg PO BID 02/26/18 [History] metFORMIN HCL 500 mg PO BID 02/26/18 [History] Aspirin 81 mg PO DAILY 11/04/23 [History] Ezetimibe [Zetia] 10 mg PO HS 11/04/23 [History] Gabapentin 600 mg PO BID 11/04/23 [History] amLODIPine [Norvasc] 5 mg PO HS 11/04/23 [History] Famotidine [Pepcid] 20 mg PO HS PRN 12/02/23 [History] Cholecalciferol [Vitamin D3 (25 Mcg = 1000 Iu)] 25 mcg PO DAILY tab 12/05/23 [Rx] Dapagliflozin Propanediol [Farxiga] 10 mg PO DAILY 08/15/24 [History] Magnesium Oxide [Mag-Ox] 400 mg PO BID 08/15/24 [History] Azithromycin [Zithromax] 500 mg PO DAILY 1 Days #1 tab 08/18/24 [Rx] Follow up Appointment(s)/Referral(s): Amador Real MD [Primary Care Provider] - 1 Week (please call to schedule) Felix Hamilton MD [STAFF PHYSICIAN] - 2 Weeks (please call to schedule) Patient Instructions/Handouts: Pneumonia (DC) Discharge Disposition: HOME SELF-CARE
[2024-08-20 02:50] LABS: Mycoplasma IgG Antibody (EIA) 4.46 INDEX (<=0.90); Mycoplasma IgM Antibody 0.25 INDEX (<=0.90)
== END 2024-08-18 10:58 | disposition home or self-care (01) | DRG 871 ==
LOC: EC 08:37 → 3SCARD 12:10
PROVIDERS: ADMIT Internal Medicine; ATTEND Internal Medicine
DX: A41.9 Sepsis, unspecified organism (principal); I21.A1 Myocardial infarction type 2; J18.9 Pneumonia, unspecified organism; D64.9 Anemia, unspecified; E11.42 Type 2 diabetes mellitus with diabetic polyneuropathy; E78.2 Mixed hyperlipidemia; I73.9 Peripheral vascular disease, unspecified; I08.1 Rheumatic disorders of both mitral and tricuspid valves; I11.9 Hypertensive heart disease without heart failure; K21.00 Gastro-esophageal reflux disease with esophagitis, without bleeding; E87.6 Hypokalemia; M47.816 Spondylosis without myelopathy or radiculopathy, lumbar region; F41.9 Anxiety disorder, unspecified; K44.9 Diaphragmatic hernia without obstruction or gangrene; M10.9 Gout, unspecified; Z79.82 Long term (current) use of aspirin; Z79.84 Long term (current) use of oral hypoglycemic drugs; Z79.899 Other long term (current) drug therapy; Z87.891 Personal history of nicotine dependence; Z86.16 Personal history of COVID-19; Z87.01 Personal history of pneumonia (recurrent); Z88.0 Allergy status to penicillin; Z88.1 Allergy status to other antibiotic agents
CPT/HCPCS: 36415; 71046; 80053; 81003; 83036; 83735; 84145; 84484; 85025; 85610; 85730; 86738; 87040; 87449; 87636; 93005; 93306; 96365; 96366; 96367; 99285